=== PATIENT | male | born 1940 | race Caucasian/White ===

== ENCOUNTER 2018-04-11 10:52 | Day surgery (SDC) | payer MEDICARE, OTHER ==
--- NOTE | 2018-04-08 11:32 | HP ---
DATE OF SURGERY: 04/11/2018 ADMISSION DIAGNOSIS: Cyst of the right neck. ANTICIPATED PROCEDURE: Excision and packing. HISTORY OF PRESENT ILLNESS: The patient has a cyst in the right neck requiring excision probably will require packing. PAST MEDICAL HISTORY: ALLERGIES: SULFA, MORPHINE, IVP DYE. MEDICATIONS: See list. PAST SURGICAL HISTORY: Medtronic heart device, heart stent, double hernia, cholecystectomy. SOCIAL HISTORY: Negative. FAMILY HISTORY: Negative. REVIEW OF SYSTEMS: Negative. PHYSICAL EXAMINATION: VITAL SIGNS: Normal. CHEST: Clear. COR: Regular. NECK: Lesion right neck. IMPRESSION: Infected cyst. PLAN: Excision.
[~2018-04-11 10:52] MED LIST: Lactated Ringers 1,000 ML IV ONE; Sodium Chloride 0.9% 1000 ML 1,000 ML IV SCH; Sodium Chloride 0.9% 1000 ML 1,000 ML ONE; XYLOCAINE 1% HCL 20 ML MDV ONE
[2018-04-11] MEDS ORDERED: VERSED 5 MG/5 ML IV ONE (10:53)
[2018-04-11] MEDS ORDERED: DEMEROL 50 MG IV ONE (10:53)
--- NOTE | 2018-04-11 14:24 | OP ---
SURGERY DATE/TIME: 04/11/2018 1250 PREOPERATIVE DIAGNOSIS: Cyst right base of neck. POSTOPERATIVE DIAGNOSIS: A 1.5 cm cyst. PROCEDURE: Excision and closure. SURGEON: Zhang Arvizu M.D. ANESTHESIA: Local IV sedation. COMPLICATIONS: None. CONDITION: Stable. INDICATION: A patient requiring excision of a cyst. DESCRIPTION OF PROCEDURE: He was taken to surgery. Routine prep and drape. 1% lidocaine. Elliptical excision. It was fairly deep. It was below the platysma. It was totally excised. It was closed with 3-0 Vicryl and 4-0 Vicryl and Steri-Strips. Findings discussed with the family in the waiting room.
[2018-04-11 15:47] VITALS: BP 122/73; PULSE 69; O2SAT 96
== END 2018-04-11 15:50 | disposition home or self-care (01) ==
LOC: SDC 10:52
PROVIDERS: ATTEND Surgery
DX: L72.3 Sebaceous cyst (principal); L98.9 Disorder of the skin and subcutaneous tissue, unspecified
CPT/HCPCS: J2175; J2250

== ENCOUNTER 2020-06-23 08:57 | Day surgery (SDC) | payer MEDICARE, OTHER ==
[~2020-06-23 08:57] MED LIST changes: +DIPRIVAN 200 MG/20 ML IV ONE; +Ketamine HCl 50 MG/ML ONE; -Lactated Ringers 1,000 ML IV ONE; -Sodium Chloride 0.9% 1000 ML 1,000 ML IV SCH; -Sodium Chloride 0.9% 1000 ML 1,000 ML ONE; -XYLOCAINE 1% HCL 20 ML MDV ONE
[2020-06-23] MEDS ORDERED: BUPIVACAINE 0.5% VIAL IJ ONE (08:58)
[2020-06-23] MEDS ORDERED: Depo-Medrol 40 MG/ML IM ONE (08:58)
--- NOTE | 2020-06-23 12:07 | XRAY ---
Indication: Bilateral L4-S1 MBB. Intraoperative fluoroscopy provided for 12 seconds. Single digital spot image submitted for interpretation demonstrates posterior needle tips projecting over the expected left and right L4-S1 nerve roots. Correlate with intraoperative findings/report.
--- NOTE | 2020-06-23 12:40 | XRAY ---
12 seconds fluoroscopy time in surgery for bilateral L4-S1 MBB.
[2020-06-23] MEDS ORDERED: Lactated Ringers 1,000 ML IV ONE (13:44)
== END 2020-06-23 10:47 | disposition home or self-care (01) ==
LOC: SDC-PAIN 08:57
PROVIDERS: ATTEND Psychiatry & Neurology Pain Medicine
DX: M47.816 Spondylosis without myelopathy or radiculopathy, lumbar region (principal); I10 Essential (primary) hypertension; E11.9 Type 2 diabetes mellitus without complications; I25.10 Atherosclerotic heart disease of native coronary artery without angina pectoris; G47.30 Sleep apnea, unspecified; Z86.73 Personal history of transient ischemic attack (TIA), and cerebral infarction without residual deficits; Z79.899 Other long term (current) drug therapy
CPT/HCPCS: 72020; 77002; 82962; J1030; J2704

== ENCOUNTER 2020-07-11 09:25 | Emergency (ER) | payer MEDICARE, OTHER ==
[2020-07-11 10:23] LABS: Absolute Neutrophil Ct (ANC) 4.02 (1.4-6.9); Basophil (Absolute #) 0 (0-0.4); Eosinophil % 0.5 % (0.00-5.0); Eosinophil (Absolute #) 0.03 (0-0.5); Hematocrit 37.6 % (42-50); Hemoglobin 12.5 gm/dl (12.5-18.0); Lymphocyte (Absolute #) 0.81 (1.0-4.6); Lymphocytes % 14.8 % (24.0-44.0); Mean Cell Volume 96.9 fl (78-100); Mean Corpuscular Hemoglobin 32.2 pg (26-32); Mean Corpuscular Hgb Concent. 33.2 g/dl (32-36); Mean Platelet Volume 9.6 fl (7.5-11.0); Monocyte (Absolute #) 0.61 (0.0-1.3); Monocytes % 11.2 % (0.0-12.0); Neutrophil % 73.5 % (36.0-66.0); Platelet Count 83 K/mm3 (150-450); Red Blood Count 3.88 M/mm3 (4.1-5.6); Red Cell Distribution Width 13.2 % (11.5-14.0); White Blood Count 5.5 K/mm3 (4.0-10.5)
[2020-07-11 10:28] LABS: ALBUMIN 4.2 g/dL (3.5-5.0); ALKALINE PHOSPHATASE 65 U/L (38-126); ANION GAP 12.2 MEQ/L (5-15); BLOOD UREA NITROGEN 15 mg/dL (9-20); CHLORIDE 101 mmol/L (98-107); Calcium 8.9 mg/dL (8.4-10.2); Carbon Dioxide 23 mmol/L (22-30); Creatinine 1 0.94 mg/dL (0.66-1.25); EST GLOMERULAR FILTRATION RATE > 60.0 ML/MIN; Glucose 171 mg/dL (74-106); Potassium 4.6 mmol/L (3.5-5.1); SGOT/AST 24 U/L (17-59); SGPT/ALT 10 U/L (0-50); SODIUM 131 mmol/L (137-145); Total Protein 7.3 g/dL (6.3-8.2)
--- NOTE | 2020-07-11 10:42 | ERPHSYRPT ---
- History of Present Illness Time Seen by Provider: 07/11/20 09:48 Source: patient, family Exam Limitations: no limitations Patient Subjective Stated Complaint: congestion, cough Triage Nursing Assessment: pt to ED c/o cough and fever x 2 days. reports temp max 100.1 this am and had taken tylenol at 0800, temp now 98.5 orally. reports some intermittent productive cough x last couple days. lungs clear and equal bilaterally, heart sounds clear. pt A&Ox4. skin pink warm and dry. to ED with WC and ambulates with cane. Physician History: 80 years old male with history of hypertension, hyperlipidemia, coronary artery disease status post stenting, diabetes mellitus presented in the ER with chief complaint of sinus/nasal congestion with gradually worsening productive cough of clear to yellow sputum for the last 2 to 3 days. This morning he had a low- grade fever 100.1 which improved after taking Tylenol prior to arrival. Denies any chest pain palpitations or shortness of breath. Denies any known sick contact with COVID-19. Timing/Duration: day(s) (3), gradual onset, worse Cough Quality/Degree: moderate, productive cough, sputum Possible Cause: occasional episodes Modifying Factors: Improves With: coughing Associated Symptoms: fever, chills, chest pain/soreness, cough, muscle aches, nasal congestion, nasal drainage, sinus infection, sore throat, No shortness of breath Allergies/Adverse Reactions: Sulfa (Sulfonamide Antibiotics) Allergy (Severe, Verified 07/11/20 09:40) Iodinated Contrast Media [Iodinated Contrast Media - IV Dye] Allergy (Mild, Javier ified 07/11/20 09:40) morphine Allergy (Mild, Verified 07/11/20 09:40) ofloxacin Allergy (Mild, Verified 07/11/20 09:40) Home Medications: Alprazolam 0.5 mg [xanAX 0.5 MG] 0.5 mg PO BID 06/27/13 [History] Amlodipine Besylate 5 mg PO HS 06/27/13 [History] B2/Vits A,C,E/Lut/Zeaxanth/Min [Icaps Tablet] 1 each PO BID 06/27/13 [History] Buspirone HCl [Buspar] 15 mg PO BID 06/27/13 [History] Clopidogrel Bisulfate 75 mg [PLAVIX 75 MG Tablet] 75 mg PO DAILY 06/27/13 [History] Cyanocobalamin/Folic Acid [Vitamin W07-[id number] Acid Tablet] 1 each PO DAILY [History] Glipizide 5 mg [Glucotrol 5 MG] 5 mg PO BID 06/27/13 [History] Metformin HCl 500 mg [Glucophage 500 MG] 500 mg PO BID 06/27/13 [History] lisinopriL [Zestril] 2.5 mg PO DAILY 06/27/13 [History] Aspirin 81 mg PO DAILY 04/03/18 [History] Carvedilol [Coreg] 3.125 mg PO BID 04/03/18 [History] Fesoterodine Fumarate [Toviaz] 8 mg PO DAILY 04/03/18 [History] Gabapentin 300 mg PO BID 04/03/18 [History] Isosorbide Mononitrate [Isosorbide Mononitrate ER] 60 mg PO DAILY 04/03/18 [Hi story] Melatonin 5 mg PO HS 04/03/18 [History] Tamsulosin HCl 0.4 mg [Flomax 0.4 MG] 0.4 mg PO DAILY 04/03/18 [History] Hx Tetanus, Diphtheria Vaccination/Date Given: Yes Hx Influenza Vaccination/Date Given: Yes Hx Pneumococcal Vaccination/Date Given: Yes Immunizations Up to Date: Yes Travel Risk - International Travel Have you traveled outside of the country in past 3 weeks: No - Coronavirus Screening Are you exhibiting any of the following symptoms?: Yes Symptoms: Fever, Cough: New Onset Close contact with a COVID-19 positive Pt in past 14-21 Days: No - Review of Systems Constitutional: Fever, Chills, Fatigue Eyes: No Symptoms Ears, Nose, & Throat: Nose Congestion, Sinus Drainage, Throat Pain Respiratory: Cough, Dyspnea Cardiac: No Symptoms Abdominal/Gastrointestinal: No Symptoms Genitourinary Symptoms: No Symptoms Musculoskeletal: No Symptoms Skin: No Symptoms Neurological: No Symptoms Psychological: No Symptoms Endocrine: No Symptoms Hematologic/Lymphatic: No Symptoms Immunological/Allergic: No Symptoms - Past Medical History Pertinent Past Medical History: Yes Neurological History: Peripheral Neuropathy, Stroke ENT History: No Pertinent History Cardiac History: High Cholesterol, Hypertension Respiratory History: No Pertinent History Endocrine Medical History: Diabetes Type II, Liver Disease Musculoskeletal History: Arthritis GI Medical History: No Pertinent History History: No Pertinent History Psycho-Social History: Anxiety Male Reproductive Disorders: Prostate Problems Other Medical History: pt states he has a "medtronic device in his chest to see if he needs a pacemaker." - Past Surgical History Past Surgical History: Yes Neuro Surgical History: No Pertinent History Cardiac: Angioplasty, Cardiac Catheterization, Cardiac Stent Respiratory: No Pertinent History Gastrointestinal: Cholecystectomy, Hernia Repair Genitourinary: No Pertinent History Musculoskeletal: No Pertinent History Male Surgical History: No Pertinent History Other Surgical History: pt states he had 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 one stent and double hernia - Social History Smoking Status: Never smoker Exposure to second hand smoke: No Alcohol Use: None Drug Use: none Patient Lives Alone: Yes Significant Family History: heart disease, diabetes, hypertension - Nursing Vital Signs Nursing Vital Signs: Initial Vital Signs Temperature 98.5 F 07/11/20 09:28 Pulse Rate 88 07/11/20 09:28 Respiratory Rate 18 07/11/20 09:28 Blood Pressure 131/85 07/11/20 09:28 O2 Sat by Pulse Oximetry 96 07/11/20 09:28 Pain Scale Pain Intensity 0 - Physical Exam General Appearance: no apparent distress, alert Eye Exam: eyes nml inspection Ears, Nose, Throat Exam: pharyngeal erythema Neck Exam: normal inspection, supple, full range of motion Respiratory Exam: normal breath sounds, lungs clear Cardiovascular Exam: regular rate/rhythm, normal heart sounds Gastrointestinal/Abdomen Exam: soft, normal bowel sounds Back Exam: normal inspection, normal range of motion Extremity Exam: normal inspection, normal range of motion Neurologic Exam: alert, oriented x 3, cooperative Skin Exam: normal color SpO2 Interpretation: normal SpO2: 95 Ordered Tests: Active Orders 24 hr Category Date Time Status CHEST 1 VIEW (PORTABLE) Stat Exams 07/11/20 10:13 Taken BLOOD CULTURE Stat Lab 07/11/20 10:45 Received CBC W DIFF Stat Lab 07/11/20 10:05 Completed CMP Stat Lab 07/11/20 10:05 Completed Lactic Acid Stat Lab 07/11/20 10:13 Completed TROPONIN Q3H Lab 07/11/20 10:15 Completed TROPONIN Q3H Lab 07/11/20 13:15 Ordered TROPONIN Q3H Lab 07/11/20 16:15 Ordered TROPONIN Q3H Lab 07/11/20 19:15 Ordered TROPONIN Q3H Lab 07/11/20 22:15 Ordered Lab/Rad Data: Laboratory Result Diagrams 07/11/20 10:05 07/11/20 10:05 Laboratory Results 07/11/20 07/11/20 07/11/20 Range/Units 10:15 10:13 10:05 WBC (4.0-10.5) K/mm3 RBC (4.1-5.6) M/mm3 Hgb (12.5-18.0) gm/dl Hct (42-50) % MCV (78-100) fl MCH (26-32) pg MCHC (32-36) g/dl RDW (11.5-14.0) % Plt Count (150-450) K/mm3 MPV (7.5-11.0) fl Gran % (36.0-66.0) % Eos # (Auto) (0-0.5) Absolute Lymphs (auto) (1.0-4.6) Absolute Monos (auto) (0.0-1.3) Lymphocytes % (24.0-44.0) % Monocytes % (0.0-12.0) % Eosinophils % (0.00-5.0) % Basophils % (0.0-0.4) % Absolute Granulocytes (1.4-6.9) Basophils # (0-0.4) Sodium 131 L (137-145) mmol/L Potassium 4.6 (3.5-5.1) mmol/L Chloride 101 (98-107) mmol/L Carbon Dioxide 23 (22-30) mmol/L Anion Gap 12.2 (5-15) MEQ/L BUN 15 (9-20) mg/dL Creatinine 0.94 (0.66-1.25) mg/dL Estimated GFR > 60.0 ML/MIN Glucose 171 H (74-106) mg/dL Lactic Acid 1.2 (0.4-2.0) Calcium 8.9 (8.4-10.2) mg/dL Total Bilirubin 0.90 (0.2-1.3) mg/dL AST 24 (17-59) U/L ALT 10 (0-50) U/L Alkaline Phosphatase 65 (38-126) U/L Troponin I 0.016 (0.000-0.034) ng/mL Serum Total Protein 7.3 (6.3-8.2) g/dL Albumin 4.2 (3.5-5.0) g/dL 07/11/ Range/Units 10:05 WBC 5.5 (4.0-10.5) K/mm3 RBC 3.88 L (4.1-5.6) M/mm3 Hgb 12.5 (12.5-18.0) gm/dl Hct 37.6 L (42-50) % MCV 96.9 (78-100) fl MCH 32.2 H (26-32) pg MCHC 33.2 (32-36) g/dl RDW 13.2 (11.5-14.0) % Plt Count 83 L (150-450) K/mm3 MPV 9.6 (7.5-11.0) fl Gran % 73.5 H (36.0-66.0) % Eos # (Auto) 0.03 (0-0.5) Absolute Lymphs (auto) 0.81 L (1.0-4.6) Absolute Monos (auto) 0.61 (0.0-1.3) Lymphocytes % 14.8 L (24.0-44.0) % Monocytes % 11.2 (0.0-12.0) % Eosinophils % 0.5 (0.00-5.0) % Basophils % 0.0 (0.0-0.4) % Absolute Granulocytes 4.02 (1.4-6.9) Basophils # 0 (0-0.4) Sodium (137-145) mmol/L Potassium (3.5-5.1) mmol/L Chloride (98-107) mmol/L Carbon Dioxide (22-30) mmol/L Anion Gap (5-15) MEQ/L BUN (9-20) mg/dL Creatinine (0.66-1.25) mg/dL Estimated GFR ML/MIN Glucose (74-106) mg/dL Lactic Acid (0.4-2.0) Calcium (8.4-10.2) mg/dL Total Bilirubin (0.2-1.3) mg/dL AST (17-59) U/L ALT (0-50) U/L Alkaline Phosphatase (38-126) U/L Troponin I (0.000-0.034) ng/mL Serum Total Protein (6.3-8.2) g/dL Albumin (3.5-5.0) g/dL - Progress Progress: re-examined Air Movement: good Progress Note: 07/11/20 11:20 [id number] Blood Culture(s) Obtained: No Antibiotics given: Yes Counseled pt/family regarding: lab results, diagnosis, need for follow-up, rad results - Departure Departure Disposition: Home Clinical Impression: Bronchitis Condition: Stable Critical Care Time: No Referrals: LAURENT MEDRANO MD [Primary Care Provider] - Follow Up with PCP/3 days Instructions: Cough, Adult (DC) Additional Instructions: Use Tylenol as needed for fever. Follow-up with primary care physician for reevaluation in 2 to 3 days. Return to ER for any worsening cough fever/shortness of breath etc. shoes contact/droplet precautions until your COVID-19 testing is back. Prescriptions: Azithromycin 250 mg [Zithromax 250 MG TABLET] 250 mg PO ZPACK #6 tablet
[2020-07-11 11:03] VITALS: BP 95/43; PULSE 68
[2020-07-11 11:09] VITALS: O2SAT 95
[2020-07-11 17:09] LABS: Slide Review 1 YES
--- NOTE | 2020-07-11 19:17 | XRAY ---
Indication: Congestion. Pneumonia. Comparison: None Portable apical lordotic chest clear. Heart and mediastinal structures within normal limits. Bony thorax intact with degenerative changes and minimal scoliosis. Left neck surgical clips and a electronic device overlies the left chest. Impression: Nonacute chest with chronic features.
== END 2020-07-11 11:47 | disposition home or self-care (01) ==
LOC: ED 09:25
DX: J40 Bronchitis, not specified as acute or chronic (principal); R05 Cough; I10 Essential (primary) hypertension; E78.00 Pure hypercholesterolemia, unspecified; I25.10 Atherosclerotic heart disease of native coronary artery without angina pectoris; E11.9 Type 2 diabetes mellitus without complications; R50.9 Fever, unspecified; R07.89 Other chest pain; R09.81 Nasal congestion; Z79.899 Other long term (current) drug therapy
CPT/HCPCS: 36000; 36415; 71045; 80053; 83605; 84484; 85025; 87040; 99284; U0003

== ENCOUNTER 2020-08-04 13:36 | Day surgery (SDC) | payer MEDICARE, OTHER ==
[2020-08-04] MEDS ORDERED: Xylocaine 1% Vial 30 ML PF IJ ONE (13:37)
[2020-08-04] MEDS ORDERED: Decadron 4 MG INJ IV ONE (13:37)
[2020-08-04] MEDS ORDERED: Sodium Chloride 0.9(Preservative Free) 10 ML IJ ONE (13:37)
[2020-08-04] MEDS ORDERED: Lactated Ringers 1,000 ML IV ONE (15:45)
--- NOTE | 2020-08-04 16:49 | XRAY ---
1 minute and 11 seconds for cervical KATH.
--- NOTE | 2020-08-04 16:57 | XRAY ---
Indication: Cervical KATH. Intraoperative fluoroscopy was provided for 1 minute 11 seconds. 2 digital spot images submitted for interpretation demonstrate midline posterior needle tip projecting just posterior to the cervical thoracic junction. Small amount of contrast injected for needle tip placement. Correlate with intraoperative findings/report.
== END 2020-08-04 15:57 | disposition home or self-care (01) ==
LOC: SDC-PAIN 13:36
PROVIDERS: ATTEND Psychiatry & Neurology Pain Medicine
DX: M54.12 Radiculopathy, cervical region (principal); E11.9 Type 2 diabetes mellitus without complications; I10 Essential (primary) hypertension; G47.30 Sleep apnea, unspecified; F41.8 Other specified anxiety disorders; I25.10 Atherosclerotic heart disease of native coronary artery without angina pectoris; Z79.899 Other long term (current) drug therapy
CPT/HCPCS: 62321; 72040; 77003; 82947; 82962; J1100; J2001; Q9966

== ENCOUNTER 2020-11-24 07:42 | Day surgery (SDC) | payer MEDICARE, OTHER ==
[2020-11-24] MEDS ORDERED: Depo-Medrol 40 MG/ML IM ONE (07:43)
[2020-11-24] MEDS ORDERED: BUPIVACAINE 0.5% VIAL IJ ONE (07:43)
[2020-11-24] MEDS ORDERED: Ketamine HCl 50 MG/ML ONE (09:37)
[2020-11-24] MEDS ORDERED: DIPRIVAN 200 MG/20 ML IV ONE (09:37)
--- NOTE | 2020-11-24 11:34 | XRAY ---
Indication: Bilateral SI joint injection. Intraoperative fluoroscopy provided for 20 seconds. 4 digital spot images submitted for interpretation demonstrates posterior needle tip projecting over the inferior left and right SI joint. Correlate with intraoperative findings/report.
--- NOTE | 2020-11-24 11:47 | XRAY ---
20 seconds fluoroscopy time in surgery for injections of bilateral SI joints.
[2020-11-24] MEDS ORDERED: Lactated Ringers 1,000 ML IV ONE (16:08)
== END 2020-11-24 10:10 | disposition home or self-care (01) ==
LOC: SDC-PAIN 07:42
PROVIDERS: ATTEND Psychiatry & Neurology Pain Medicine
DX: M46.1 Sacroiliitis, not elsewhere classified (principal); I10 Essential (primary) hypertension; I25.10 Atherosclerotic heart disease of native coronary artery without angina pectoris; G47.30 Sleep apnea, unspecified; I63.9 Cerebral infarction, unspecified; E11.9 Type 2 diabetes mellitus without complications; F41.9 Anxiety disorder, unspecified; Z79.899 Other long term (current) drug therapy
CPT/HCPCS: 27096; 72202; 77002; 82947; G0260; J1030; J2704

== ENCOUNTER 2021-03-02 08:28 | Day surgery (SDC) | payer MEDICARE, OTHER ==
[2021-03-02] MEDS ORDERED: Depo-Medrol 40 MG/ML IM ONE (08:29)
[2021-03-02] MEDS ORDERED: BUPIVACAINE 0.5% VIAL IJ ONE (08:29)
[2021-03-02] MEDS ORDERED: DIPRIVAN 200 MG/20 ML IV ONE (09:39)
--- NOTE | 2021-03-02 10:44 | XRAY ---
Indication: Bilateral SI joint injection. Intraoperative fluoroscopy provided for 15 seconds. 4 digital spot images submitted for interpretation demonstrates posterior needle tip projecting over the inferior left and right SI joints. Correlate with intraoperative findings/report.
--- NOTE | 2021-03-02 11:55 | XRAY ---
15 seconds of fluoroscopy was used in surgery for bilateral SI joint injections.
[2021-03-02] MEDS ORDERED: Lactated Ringers 1,000 ML IV ONE (16:00)
== END 2021-03-02 10:06 | disposition home or self-care (01) ==
LOC: SDC-PAIN 08:28
PROVIDERS: ATTEND Psychiatry & Neurology Pain Medicine
DX: M46.1 Sacroiliitis, not elsewhere classified (principal); F41.9 Anxiety disorder, unspecified; F32.9 Major depressive disorder, single episode, unspecified; I10 Essential (primary) hypertension; I25.10 Atherosclerotic heart disease of native coronary artery without angina pectoris; G47.30 Sleep apnea, unspecified; E11.9 Type 2 diabetes mellitus without complications; Z79.01 Long term (current) use of anticoagulants; Z79.899 Other long term (current) drug therapy
CPT/HCPCS: 27096; 72202; 77002; 82947; G0260; 99100; J1030; J2704

== ENCOUNTER 2021-03-29 17:01 | Observation (INO) | payer MEDICARE, OTHER ==
--- NOTE | 2021-03-29 17:21 | ERPHSYRPT ---
- History of Present Illness Source: patient, family Exam Limitations: no limitations Hx Tetanus, Diphtheria Vaccination/Date Given: Yes Hx Influenza Vaccination/Date Given: Yes Hx Pneumococcal Vaccination/Date Given: Yes - History of Present Illness Time Seen by Provider: 03/29/21 17:20 Physician History: Patient is a 80-year-old male who presents with a chief complaint of a cough. Of note, the patient lives alone and was accompanied by his son-in-law in the emergency department. The son-in-law provided most of the details pertaining to the HPI due to the patient's difficulty with hearing. He reportedly had a increasing cough is been productive in which she is calling a yellow-tinged sputum with some blood streaking over the past few days to a week. He is also had some confusion and generalized weakness where he is having trouble walking. The patient did endorse falling at home but cannot tell me the context of the fall. He does take Plavix. It appears he is also on gabapentin. There is no reported recorded fever but the son-in-law reports that the patient complained of a an objective fever in addition to chills. The son-in-law notes that the patient's thermostat at home was kept at 78 F. There is no report of vomiting, diarrhea and the patient complains of some mild left shoulder pain. The son reports he did not show to a family gathering or an event and when they went to check on him he appeared to be confused. It appears the patient have taken twice the amount of medication is supposed to, specifically his pain medicines, specifically gabapentin. Not appear to be confused at this time. (REBEL KRAUS) Allergies/Adverse Reactions: Sulfa (Sulfonamide Antibiotics) Allergy (Severe, Verified 03/29/21 17:28) Iodinated Contrast Media [Iodinated Contrast Media - IV Dye] Allergy (Mild, Verified 03/29/21 17:28) morphine Allergy (Mild, Verified 03/29/21 17:28) ofloxacin Allergy (Mild, Verified 03/29/21 17:28) Home Medications: ALPRAZolam 0.5 MG [xanAX 0.5 MG] 0.5 mg PO BID 06/27/13 [History] Amlodipine Besylate 5 mg PO HS 06/27/13 [History] B2/Vits A,C,E/Lut/Zeaxanth/Min [Icaps Tablet] 1 each PO BID 06/27/13 [History] Buspirone HCl [Buspar] 15 mg PO BID 06/27/13 [History] Clopidogrel Bisulfate 75 mg [PLAVIX 75 MG Tablet] 75 mg PO DAILY 06/27/13 [History] Cyanocobalamin/Folic Acid [Vitamin S30-Bcogo Acid Tablet] 1 each PO DAILY 06/27/13 [History] Glipizide 5 mg [Glucotrol 5 MG] 5 mg PO BID 06/27/13 [History] Metformin HCl 500 mg [Glucophage 500 MG] 500 mg PO BID 06/27/13 [History] lisinopriL [Zestril] 2.5 mg PO DAILY 06/27/13 [History] Aspirin 81 mg PO DAILY 04/03/18 [History] Carvedilol [Coreg] 3.125 mg PO BID 04/03/18 [History] Fesoterodine Fumarate [Toviaz] 8 mg PO DAILY 04/03/18 [History] Gabapentin 300 mg PO BID 04/03/18 [History] Isosorbide Mononitrate [Isosorbide Mononitrate ER] 60 mg PO DAILY 04/03/18 [History] Melatonin 5 mg PO HS 04/03/18 [History] Tamsulosin HCl 0.4 mg [Flomax 0.4 MG] 0.4 mg PO DAILY 04/03/18 [History] - Review of Systems Constitutional: Fever, Chills Ears, Nose, & Throat: No Symptoms Respiratory: Cough, No Dyspnea on Exertion (KEMP), No Stridor, No Wheezing Cardiac: No Chest Pain, No Edema, No Palpitations Abdominal/Gastrointestinal: No Abdominal Pain, No Nausea, No Vomiting Musculoskeletal: Fall, Other (left shoulder pain) Neurological: Other (Confusion), No Headache, No Speech Changes All Other Systems: Reviewed and Negative - Past Medical History Pertinent Past Medical History: Yes Neurological History: Stroke ENT History: No Pertinent History Cardiac History: Coronary Artery Disease Respiratory History: Sleep Apnea, Other Endocrine Medical History: Diabetes Type II Musculoskeletal History: Degenerative Disk Disease, Osteoarthritis GI Medical History: No Pertinent History History: No Pertinent History Psycho-Social History: Anxiety Male Reproductive Disorders: Prostate Problems Other Medical History: CVA AFFECTING RIGHT SIDE 2010 YEARS AGO BUT REPORTS RECOVERED. HX OF COVID FIRST OF YEAR. IS NOW FULLY VACCINATED. HX OF SPINAL STENOSIS CERVICAL REGION BUT NOT SURGERY CANDIDATE. HAS RADICULOPATHY BOTH UE. CHRONIC RIGHT HIP PAIN - WAS SEEN BY ORTHO AND TOLD DID NOT NEED A REPLACEMENT BUT HAD INJECTION GREATER TROCHANTERIC BURSA. 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 one stent and double hernia - Social History Smoking Status: Never smoker Exposure to second hand smoke: No Alcohol Use: None Drug Use: none Patient Lives Alone: Yes Significant Family History: heart disease, diabetes, hypertension - Physical Exam General Appearance: no apparent distress, alert Eye Exam: PERRL/EOMI, photophobia, No EOM palsy/anisocoria Ears, Nose, Throat Exam: TMs normal, moist mucous membranes Neck Exam: normal inspection, non-tender, supple Respiratory Exam: normal breath sounds, lungs clear, airway intact, diminished breath sounds, No respiratory distress, No crackles/rales, No rhonchi, No wheezing Cardiovascular Exam: regular rate/rhythm, normal heart sounds, normal peripheral pulses, No murmur, No friction rub, No gallop, No capillary refill <2 sec Gastrointestinal/Abdomen Exam: soft, No tenderness, No distention, No mass Rectal Exam: deferred Back Exam: normal inspection, other (No flank ecchymosis or actual midline spine tenderness or crepitus despite his complaint of back pain.) Extremity Exam: normal inspection, other (The patient had pain with knee extension bilaterally but there is no deformity, cellulitis or erythema or crepitus. Dorsi flexion plantar flexion 4+ bilaterallyHip flexion was at 3 bilaterally, hallux extension 4+ bilaterally) Neurologic Exam: alert, oriented x 3, cooperative, other (Decreased sensation to gross touch of the lower extremities, there is no ankle clonus.) Skin Exam: normal color, warm, dry, No rash, No petechiae SpO2 Interpretation: normal O2 Delivery: Room Air - Nursing Vital Signs Nursing Vital Signs: Initial Vital Signs Temperature 97.8 F 03/29/21 17:06 Pulse Rate 83 03/29/21 17:06 Respiratory Rate 28 H 03/29/21 17:06 Blood Pressure 176/88 03/29/21 17:06 O2 Sat by Pulse Oximetry 93 L 03/29/21 17:06 Pain Scale Pain Intensity 0 - Course Nursing assessment & vital signs reviewed: Yes EKG Interpreted by Me: RATE, Left Bundle Branch Block (Prolonged W[place] interval. Negative for STEMI. Left axis deviation.) - Radiology Exams Chest X-ray Interpretation: Reviewed by me, Teleradiologist Report, Negative, Other (Poorly defined interstitial disease in the left perihilar region ? atypical pneumonia) - CT Exams Head CT Interpretation: Negative (No acute intracranial abnormality. Extensive right mastoid air cells) Ordered Tests: Active Orders 24 hr Category Date Time Status User Acceptance Tester STAT Care 03/29/21 17:29 Active EKG-ER Only STAT Care 03/29/21 17:28 Active IV Insertion STAT Care 03/29/21 17:28 Active CHEST 2 VIEWS (PA AND LAT) Stat Exams 03/29/21 17:28 Taken CHEST WITH CONTRAST [CT] Stat Exams 03/30/21 00:15 Taken HEAD WITHOUT CONTRAST [CT] Stat Exams 03/29/21 17:30 Taken BLOOD CULTURE Stat Lab 03/29/21 19:29 Received CBC W DIFF Stat Lab 03/29/21 18:15 Completed CMP Stat Lab 03/29/21 18:15 Completed CULTURE,URINE Stat Lab 03/29/21 17:52 Received D-DIMER QUANTITATIVE Stat Lab 03/29/21 19:18 Completed NT PRO BNP Stat Lab 03/29/21 18:15 Completed PROTIME WITH INR Stat Lab 03/29/21 20:20 Completed PTT Stat Lab 03/29/21 20:20 Completed TROPONIN Q3H Lab 03/30/21 03:12 Completed TROPONIN Q3H Lab 03/30/21 06:00 Ordered TROPONIN Q3H Lab 03/30/21 09:00 Ordered TROPONIN Q3H Lab 03/30/21 12:00 Ordered TROPONIN Stat Lab 03/29/21 18:15 Completed UA W/RFX UR CULTURE Stat Lab 03/29/21 17:49 Completed VENOUS BLOOD GAS Stat Lab 03/29/21 18:20 Completed Transfer Order Routine Transfer 03/30/21 Ordered Medication Summary Discontinued Medications Generic Name Dose Route Start Last Admin Trade Name Freq PRN Reason Stop Dose Admin Aspirin 324 mg 03/29/21 20:06 03/29/21 21:59 Baby Aspirin 81 Mg Chew PO 03/29/21 20:07 324 mg STAT ONE Administration Diphenhydramine HCl 50 mg 03/29/21 20:15 03/30/21 01:00 Benadryl 50 Mg/Ml IV 03/29/21 20:16 50 mg STAT ONE Administration Diphenhydramine HCl Confirm 03/30/21 00:52 Benadryl 50 Mg/Ml Administered 03/30/21 00:53 Dose 50 mg .ROUTE .STK-MED ONE Enoxaparin Sodium 100 mg 03/29/21 20:17 03/29/21 22:00 Enoxaparin Sodium 1 mg/kg (100 mg) 03/29/21 20:18 100 mg SQ Administration STAT ONE Enoxaparin Sodium Confirm 03/29/21 21:48 Enoxaparin Sodium Administered 03/29/21 21:49 Dose 120 mg SQ .STK-MED ONE Furosemide 20 mg 03/30/21 03:16 Lasix 20 Mg/2 Ml IV 03/30/21 03:17 ONCE STA Furosemide Confirm 03/30/21 03:30 Lasix 40 Mg/4 Ml Administered 03/30/21 03:31 Dose 40 mg .ROUTE .STK-MED ONE Furosemide Confirm 03/30/21 03:50 Lasix 40 Mg/4 Ml Administered 03/30/21 03:51 Dose 40 mg .ROUTE .STK-MED ONE Furosemide 40 mg 03/30/21 03:54 Lasix 40 Mg/4 Ml IV 03/30/21 03:55 STAT ONE Ceftriaxone Sodium/Dextrose 1 g in 50 mls @ 100 mls/hr 03/29/21 19:16 03/29/21 19:39 Rocephin 1 Gm-D5w 50 Ml Bag IV 03/29/21 19:45 100 mls/hr STAT STA 100 mls/hr Administration Azithromycin 500 mg in 250 mls @ 250 mls/hr 03/29/21 19:17 03/29/21 19:39 Zithromax 500 Mg/ 250 Ml Nacl Premix IV 03/29/21 20:16 250 mls/hr STAT ONE Administration Azithromycin Confirm 03/29/21 19:34 Zithromax 500 Mg/ 250 Ml Nacl Premix Administered 03/29/21 19:35 Dose 500 mg in 250 mls @ ud IV .STK-MED ONE Ceftriaxone Sodium/Dextrose Confirm 03/29/21 19:34 Rocephin 1 Gm-D5w 50 Ml Bag Administered 03/29/21 19:35 Dose 1 g in 50 mls @ ud IV .STK-MED ONE Methylprednisolone Sodium Succinate 40 mg 03/29/21 20:15 03/29/21 22:01 Solu-Medrol 40 Mg IV 03/29/21 20:16 40 mg STAT ONE Administration Methylprednisolone Sodium Succinate Confirm 03/29/21 21:46 Solu-Medrol Administered 03/29/21 21:47 Dose 125 mg .ROUTE .STK-MED ONE Methylprednisolone Sodium Succinate 40 mg 03/29/21 22:31 03/30/21 01:00 Solu-Medrol 40 Mg IV 03/29/21 22:32 40 mg STAT ONE Administration Methylprednisolone Sodium Succinate Confirm 03/30/21 00:56 Solu-Medrol 40 Mg Administered 03/30/21 00:57 Dose 40 mg .ROUTE .STK-MED ONE Sterile Water Confirm 03/29/21 21:46 Sterile H2o 10 Ml Administered 03/29/21 21:47 Dose 10 ml IJ .STK-MED ONE Lab/Rad Data: Laboratory Result Diagrams 03/29/21 18:15 03/29/21 18:15 Laboratory Results 03/30/21 03/30/21 03/29/21 Range/Units 03:12 01:50 20:20 WBC (4.0-10.5) K/mm3 RBC (4.1-5.6) M/mm3 Hgb (12.5-18.0) gm/dl Hct (42-50) % MCV (78-100) fl MCH (26-32) pg MCHC (32-36) g/dl RDW (11.5-14.0) % Plt Count (150-450) K/mm3 MPV (7.5-11.0) fl Gran % (36.0-66.0) % Eos # (Auto) (0-0.5) Absolute Lymphs (auto) (1.0-4.6) Absolute Monos (auto) (0.0-1.3) Lymphocytes % (24.0-44.0) % Monocytes % (0.0-12.0) % Eosinophils % (0.00-5.0) % Basophils % (0.0-0.4) % Absolute Granulocytes (1.4-6.9) Basophils # (0-0.4) PT 22.3 H (9.4-12.5) SECONDS INR 1.89 (0.8-3.0) APTT 36.1 (25.1-36.5) SECONDS D-Dimer (215-500) ng/mL pO2/FiO2 Ratio % VBG pH (7.32-7.42) VBG pCO2 at Pat Temp (42-55) mm/Hg VBG pO2 at Pat Temp (25-40) mm/Hg VBG HCO3 (22-28) meq/L VBG O2 Sat (Jay) (95-100) VBG Base Excess (-2.0-2.0) VBG Hemoglobin VBG Carboxyhemoglobin (0.0-6.9) % T HGB POC Potassium (3.5-5.1) Sodium (137-145) mmol/L Potassium (3.5-5.1) mmol/L Chloride (98-107) mmol/L Carbon Dioxide (22-30) mmol/L Anion Gap (5-15) MEQ/L BUN (9-20) mg/dL Creatinine (0.66-1.25) mg/dL Estimated GFR ML/MIN Glucose (74-106) mg/dL Calcium (8.4-10.2) mg/dL Total Bilirubin (0.2-1.3) mg/dL AST (17-59) U/L ALT (0-50) U/L Alkaline Phosphatase (38-126) U/L Troponin I 0.054 H* (0.000-0.034) ng/mL NT-Pro-B Natriuret Pep (0-1800) pg/mL Serum Total Protein (6.3-8.2) g/dL Albumin (3.5-5.0) g/dL Urine Color (YELLOW) Urine Appearance (CLEAR) Urine pH (5-6) Ur Specific Weston (1.005-1.025) Urine Protein (Negative) Urine Ketones (NEGATIVE) Urine Blood (0-5) Chris/ul Urine Nitrite (NEGATIVE) Urine Bilirubin (NEGATIVE) Urine Urobilinogen (0-1) mg/dL Ur Leukocyte Esterase (NEGATIVE) Urine WBC (Auto) (0-5) /HPF Urine RBC (Auto) (0-2) /HPF U Hyaline Cast (Auto) (0-2) /LPF U Epithel Cells (Auto) (FEW) /HPF Urine Bacteria (Auto) (NEGATIVE) /HPF Urine Culture Reflexed (NO) Urine Glucose (NEGATIVE) mg/dL SARS-CoV-2 (PCR) NEGATIVE (NEGATIVE) 03/29/21 03/29/21 03/29/21 Range/Units 19:18 18:20 18:15 WBC (4.0-10.5) K/mm3 RBC (4.1-5.6) M/mm3 Hgb (12.5-18.0) gm/dl Hct (42-50) % MCV (78-100) fl MCH (26-32) pg MCHC (32-36) g/dl RDW (11.5-14.0) % Plt Count (150-450) K/mm3 MPV (7.5-11.0) fl Gran % (36.0-66.0) % Eos # (Auto) (0-0.5) Absolute Lymphs (auto) (1.0-4.6) Absolute Monos (auto) (0.0-1.3) Lymphocytes % (24.0-44.0) % Monocytes % (0.0-12.0) % Eosinophils % (0.00-5.0) % Basophils % (0.0-0.4) % Absolute Granulocytes (1.4-6.9) Basophils # (0-0.4) PT (9.4-12.5) SECONDS INR (0.8-3.0) APTT (25.1-36.5) SECONDS D-Dimer 1055 H* (215-500) ng/mL pO2/FiO2 Ratio 21.0 % VBG pH 7.43 H (7.32-7.42) VBG pCO2 at Pat Temp 38 L (42-55) mm/Hg VBG pO2 at Pat Temp 36 (25-40) mm/Hg VBG HCO3 25.2 (22-28) meq/L VBG O2 Sat (Jay) 69.2 L (95-100) VBG Base Excess 1.0 (-2.0-2.0) VBG Hemoglobin 11.7 VBG Carboxyhemoglobin 4.4 (0.0-6.9) % T HGB POC Potassium 4.1 (3.5-5.1) Sodium 130 L (137-145) mmol/L Potassium 4.1 (3.5-5.1) mmol/L Chloride 93 L (98-107) mmol/L Carbon Dioxide 26 (22-30) mmol/L Anion Gap 15.3 H (5-15) MEQ/L BUN 16 (9-20) mg/dL Creatinine 1.18 (0.66-1.25) mg/dL Estimated GFR > 60.0 ML/MIN Glucose 97 (74-106) mg/dL Calcium 8.8 (8.4-10.2) mg/dL Total Bilirubin 1.30 (0.2-1.3) mg/dL AST 31 (17-59) U/L ALT 11 (0-50) U/L Alkaline Phosphatase 67 (38-126) U/L Troponin I 0.057 H* (0.000-0.034) ng/mL NT-Pro-B Natriuret Pep 5010 H (0-1800) pg/mL Serum Total Protein 7.5 (6.3-8.2) g/dL Albumin 4.2 (3.5-5.0) g/dL Urine Color (YELLOW) Urine Appearance (CLEAR) Urine pH (5-6) Ur Specific Weston (1.005-1.025) Urine Protein (Negative) Urine Ketones (NEGATIVE) Urine Blood (0-5) Chris/ul Urine Nitrite (NEGATIVE) Urine Bilirubin (NEGATIVE) Urine Urobilinogen (0-1) mg/dL Ur Leukocyte Esterase (NEGATIVE) Urine WBC (Auto) (0-5) /HPF Urine RBC (Auto) (0-2) /HPF U Hyaline Cast (Auto) (0-2) /LPF U Epithel Cells (Auto) (FEW) /HPF Urine Bacteria (Auto) (NEGATIVE) /HPF Urine Culture Reflexed (NO) Urine Glucose (NEGATIVE) mg/dL SARS-CoV-2 (PCR) (NEGATIVE) 03/29/21 03/29/21 Range/Units 18:15 17:49 WBC 8.7 (4.0-10.5) K/mm3 RBC 3.49 L (4.1-5.6) M/mm3 Hgb 11.0 L (12.5-18.0) gm/dl Hct 33.7 L (42-50) % MCV 96.6 (78-100) fl MCH 31.5 (26-32) pg MCHC 32.6 (32-36) g/dl RDW 14.2 H (11.5-14.0) % Plt Count 168 (150-450) K/mm3 MPV 9.1 (7.5-11.0) fl Gran % 65.8 (36.0-66.0) % Eos # (Auto) 0.01 (0-0.5) Absolute Lymphs (auto) 1.53 (1.0-4.6) Absolute Monos (auto) 1.42 H (0.0-1.3) Lymphocytes % 17.6 L (24.0-44.0) % Monocytes % 16.4 H (0.0-12.0) % Eosinophils % 0.1 (0.00-5.0) % Basophils % 0.1 (0.0-0.4) % Absolute Granulocytes 5.71 (1.4-6.9) Basophils # 0.01 (0-0.4) PT (9.4-12.5) SECONDS INR (0.8-3.0) APTT (25.1-36.5) SECONDS D-Dimer (215-500) ng/mL pO2/FiO2 Ratio % VBG pH (7.32-7.42) VBG pCO2 at Pat Temp (42-55) mm/Hg VBG pO2 at Pat Temp (25-40) mm/Hg VBG HCO3 (22-28) meq/L VBG O2 Sat (Jay) (95-100) VBG Base Excess (-2.0-2.0) VBG Hemoglobin VBG Carboxyhemoglobin (0.0-6.9) % T HGB POC Potassium (3.5-5.1) Sodium (137-145) mmol/L Potassium (3.5-5.1) mmol/L Chloride (98-107) mmol/L Carbon Dioxide (22-30) mmol/L Anion Gap (5-15) MEQ/L BUN (9-20) mg/dL Creatinine (0.66-1.25) mg/dL Estimated GFR ML/MIN Glucose (74-106) mg/dL Calcium (8.4-10.2) mg/dL Total Bilirubin (0.2-1.3) mg/dL AST (17-59) U/L ALT (0-50) U/L Alkaline Phosphatase (38-126) U/L Troponin I (0.000-0.034) ng/mL NT-Pro-B Natriuret Pep (0-1800) pg/mL Serum Total Protein (6.3-8.2) g/dL Albumin (3.5-5.0) g/dL Urine Color BERNARD (YELLOW) Urine Appearance CLOUDY (CLEAR) Urine pH 5.0 (5-6) Ur Specific Weston 1.014 (1.005-1.025) Urine Protein 100 (Negative) Urine Ketones NEGATIVE (NEGATIVE) Urine Blood NEGATIVE (0-5) Chris/ul Urine Nitrite NEGATIVE (NEGATIVE) Urine Bilirubin NEGATIVE (NEGATIVE) Urine Urobilinogen NEGATIVE (0-1) mg/dL Ur Leukocyte Esterase NEGATIVE (NEGATIVE) Urine WBC (Auto) 0-2 (0-5) /HPF Urine RBC (Auto) 0-2 (0-2) /HPF U Hyaline Cast (Auto) 0-2 (0-2) /LPF U Epithel Cells (Auto) NONE (FEW) /HPF Urine Bacteria (Auto) NONE SEEN (NEGATIVE) /HPF Urine Culture Reflexed NO (NO) Urine Glucose NEGATIVE (NEGATIVE) mg/dL SARS-CoV-2 (PCR) (NEGATIVE) - Progress Progress: unchanged Discussed with : Bailey Counseled pt/family regarding: lab results, diagnosis, rad results - Progress Progress Note: 03/29/21 18:44 The patient serum potassium is 3.0. I have ordered oral potassium replacement given in addition to a gram of magnesium given hypokalemia is usually associated with hypomagnesemia. May be etiology of some of his weakness but not all of it. Obtain labs to include CBC in addition to the BMP already ordered and UA. CT ab domen pelvis with contrast will be ordered to eval for evidence of osteolytic lesion of the spine, screen for discitis, RP hematoma, pyelonephritis, obstructing kidney stone, AAA, or herniated disc/degenerative changes in his lumbar spine. The patient was given for pain given that he takes this at home. He is to be relatively comfortable when remaining still. 03/29/21 20:31 I discussed the case with Dr. Medrano, PCP. He agreed to admit and is aware there is a CTA of the chest pending to rule out PE. Working diagnosis at this time is community-acquired pneumonia and/or PE. Patient also appears to have evidence of an NSTEMI but his EKG showed no evidence of acute myocardial ischemia or injury pattern and this is likely reflective of a type II event. The patient's BNP is also elevated. In the context of a PE if present, this would represent a submassive PE. I went ahead and empirically treated the patient with Lovenox for anticoagulation. Unfortunately, there will be a delay in obtaining a CTA of his chest given the patient has a contrast allergy. He has been pretreated with Benadryl and Solu-Medrol while he awaits his CT. In the meantime, the patient was already empirically treated for community- acquired pneumonia with ceftriaxone and azithromycin present. His head CT s howed no evidence of intracranial hemorrhage or mass or any evidence of acute CVA. I believe his confusion and reported altered mental status by the son-in-law could be from him being overmedicated, specifically from his gabapentin. Patient care has been transitioned to Dr. Rhodes pending CTA results and admission to the hospital. (REBEL KRAUS) Patient endorsed to Dr. Rhodes at approximately 7:[address] Rhodes advised to follow-up on pending CT a chest. CT scan was ordered however patient has a allergy to iodine. Patient required premedication. This process was performed in our ED. CT results pending. However patient treated for possible pneumonia. Patient anticoagulated for possible PE. Troponin elevated at 0.05 however this is stable. Patient has no chest pain. BNP elevated. Patient received [address] Kraus spoke to Dr. Medrano who accepted patient to his service. Plan of care discussed with patient. He agrees to admission at [facility] for further evaluation and treatment. Patient voices no other complaints concerns at this time. 03/30/21 04:01 (LALITHA RHODES) - Departure Departure Disposition: Observation Critical Care Time: Yes Critical Care Time(excluding separately billable procedures): Critical 30-74 mins - Departure Clinical Impression: Confusion, Community acquired pneumonia, Elevated troponin, Pneumonia, Elevated brain natriuretic peptide (BNP) level Condition: Stable Referrals: LAURENT MEDRANO MD [Primary Care Provider] -
[2021-03-29 18:27] LABS: Appearance CLOUDY (CLEAR); Bilirubin NEGATIVE (NEGATIVE); Blood NEGATIVE Ery/ul (0-5); Glucose NEGATIVE (NEGATIVE); Hyaline Casts 0-2 /LPF (0-2); Ketones NEGATIVE (NEGATIVE); Leukocyte Esterase NEGATIVE (NEGATIVE); Nitrite NEGATIVE (NEGATIVE); Protein,Urine Dip 100 (Negative); RBC 0-2 /HPF (0-2); Specific Gravity 1.014 (1.005-1.025); Urobilinogen NEGATIVE mg/dL (0-1); WBC 0-2 /HPF (0-5)
[2021-03-29 18:30] LABS: Bacteria NONE SEEN /HPF (NEGATIVE)
[2021-03-29 18:37] LABS: Absolute Neutrophil Ct (ANC) 5.71 (1.4-6.9); BASOPHIL % 0.1 % (0.0-0.4); Basophil (Absolute #) 0.01 (0-0.4); Eosinophil % 0.1 % (0.00-5.0); Eosinophil (Absolute #) 0.01 (0-0.5); Hematocrit 33.7 % (42-50); Lymphocyte (Absolute #) 1.53 (1.0-4.6); Lymphocytes % 17.6 % (24.0-44.0); Mean Cell Volume 96.6 fl (78-100); Mean Corpuscular Hemoglobin 31.5 pg (26-32); Mean Corpuscular Hgb Concent. 32.6 g/dl (32-36); Mean Platelet Volume 9.1 fl (7.5-11.0); Monocyte (Absolute #) 1.42 (0.0-1.3); Monocytes % 16.4 % (0.0-12.0); Neutrophil % 65.8 % (36.0-66.0); Platelet Count 168 K/mm3 (150-450); Red Blood Count 3.49 M/mm3 (4.1-5.6); Red Cell Distribution Width 14.2 % (11.5-14.0); White Blood Count 8.7 K/mm3 (4.0-10.5)
[2021-03-29 18:38] LABS: VBG CARBOXYHEMOGLOBIN 4.4 % T HGB (0.0-6.9); VBG HCO3- 25.2 meq/L (22-28); VBG HEMOGLOBIN 11.7; VBG O2 SATURATION 69.2 (95-100); VBG POTASSIUM 4.1 (3.5-5.1); VBG pH 7.43 (7.32-7.42)
[2021-03-29 19:04] LABS: ALBUMIN 4.2 g/dL (3.5-5.0); ALKALINE PHOSPHATASE 67 U/L (38-126); ANION GAP 15.3 MEQ/L (5-15); BLOOD UREA NITROGEN 16 mg/dL (9-20); CHLORIDE 93 mmol/L (98-107); Calcium 8.8 mg/dL (8.4-10.2); Carbon Dioxide 26 mmol/L (22-30); Creatinine 1 1.18 mg/dL (0.66-1.25); EST GLOMERULAR FILTRATION RATE > 60.0 ML/MIN; Glucose 97 mg/dL (74-106); NT PRO BNP 5010 pg/mL (0-1800); Potassium 4.1 mmol/L (3.5-5.1); SGOT/AST 31 U/L (17-59); SGPT/ALT 11 U/L (0-50); SODIUM 130 mmol/L (137-145); Total Protein 7.5 g/dL (6.3-8.2)
[2021-03-29] MEDS ORDERED: ROCEPHIN 1 Gm-D5w 50 ml Bag** 1 G/50 ML IVPB IV STA (19:16)
[2021-03-29] MEDS ORDERED: Zithromax 500 MG/ 250 ML NaCl Premix 500 MG/250 ML IVPB IV ONE ×2 (19:17→19:34)
[2021-03-29 19:29] LABS: TROPONIN 0.057 ng/mL (0.000-0.034)
[2021-03-29] MEDS ORDERED: ROCEPHIN 1 Gm-D5w 50 ml Bag** 1 G/50 ML IVPB IV ONE (19:34)
[2021-03-29] MEDS ORDERED: BABY ASPIRIN 81 MG CHEW PO ONE (20:06)
[2021-03-29] MEDS ORDERED: BENADRYL 50 MG/ML IV ONE (20:15)
[2021-03-29] MEDS ORDERED: solu-MEDROL 40 MG IV ONE ×2 (20:15→22:31)
[2021-03-29] MEDS ORDERED: ENOXAPARIN SODIUM SQ ONE ×2 (20:17→21:48)
[2021-03-29 20:27] LABS: INR 1.89 (0.8-3.0); PROTIME 22.3 SECONDS (9.4-12.5)
[2021-03-29 20:29] LABS: PTT 36.1 SECONDS (25.1-36.5)
[2021-03-29] MEDS ORDERED: Sterile H2O 10 ml IJ ONE (21:46)
[2021-03-29] MEDS ORDERED: solu-MEDROL ONE (21:46)
[2021-03-30] MEDS ORDERED: BENADRYL 50 MG/ML ONE (00:52)
[2021-03-30] MEDS ORDERED: solu-MEDROL 40 MG ONE (00:56)
[2021-03-30] MEDS ORDERED: Lasix 20 MG/2 ML IV STA (03:16)
[2021-03-30] MEDS ORDERED: Lasix 40 MG/4 ML ONE ×2 (03:30→03:50)
[2021-03-30] MEDS ORDERED: Lasix 40 MG/4 ML IV ONE (03:54)
[2021-03-30] MEDS ORDERED: TYLENOL 325 MG PO PRN ×2 (06:00)
[2021-03-30] MEDS ORDERED: MILK OF MAGNESIA 30 ML PO PRN ×2 (06:00)
[2021-03-30] MEDS ORDERED: Senokot-S Tablet PO PRN ×2 (06:00)
[2021-03-30] MEDS ORDERED: MAALOX ES 30 ML UNIT DOSE PO PRN ×2 (06:00)
--- NOTE | 2021-03-30 07:56 | PCM.HP ---
History of Present Illness - Chief Complaint Chief Complaint: c/o cough and confusion for few hours History of Present Illness: is a 80 year old male.who presents with a chief complaint of a cough. Of note, the patient lives alone He reportedly had a increasing cough is been productive in which she is calling a yellow-tinged sputum with some blood streaking over the past few days to a week. He is also had some confusion and generalized weakness where he is having trouble walking. The patient did endorse falling at home but cannot tell me the context of the fall. He does take Plavix. It appears he is also on gabapentin. There is no reported recorded fever but the son-in-law reports that the patient complained of a an objective fever in addition to chills. The son-in-law notes that the patient's thermostat at home was kept at 78 F. There is no report of vomiting, diarrhea and the patient complains of some mild left shoulder pain. The son reports he did not show to a family gathering or an event and when they went to check on him he appeared to be confused. It appears the patient have taken twice the amount of medication is supposed to, specifically his pain medicines, specifically gabapentin. Not appear to be confused at this time. - Review of Systems Constitutional: Weakness, No Fever, No Chills Eyes: No Symptoms Ears, Nose, & Throat: No Symptoms Respiratory: Cough, No Short Of Breath Cardiac: No Chest Pain, No Edema, No Syncope Abdominal/Gastrointestinal: No Abdominal Pain, No Nausea, No Vomiting, No Diarrhea Genitourinary Symptoms: No Dysuria Musculoskeletal: No Back Pain, No Neck Pain Skin: No Rash Neurological: Lethargy, No Dizziness, No Focal Weakness, No Sensory Changes Psychological: No Symptoms Endocrine: No Symptoms Hematologic/Lymphatic: No Symptoms Immunological/Allergic: No Symptoms Medications & Allergies Home Medications: Home Medication List ALPRAZolam 0.5 MG [xanAX 0.5 MG] 0.5 mg PO BID 06/27/13 [History Confirmed 07/11/20] Amlodipine Besylate 5 mg PO HS 06/27/13 [History Confirmed 07/11/20] B2/Vits A,C,E/Lut/Zeaxanth/Min [Icaps Tablet] 1 each PO BID 06/27/13 [History Confirmed 07/11/20] Buspirone HCl [Buspar] 15 mg PO BID 06/27/13 [History Confirmed 07/11/20] Clopidogrel Bisulfate 75 mg [PLAVIX 75 MG Tablet] 75 mg PO DAILY 06/27/13 [History Confirmed 07/11/20] Cyanocobalamin/Folic Acid [Vitamin J37-Mltxo Acid Tablet] 1 each PO DAILY 06/27/13 [History Confirmed 07/11/20] Glipizide 5 mg [Glucotrol 5 MG] 5 mg PO BID 06/27/13 [History Confirmed 07/11/20] Metformin HCl 500 mg [Glucophage 500 MG] 500 mg PO BID 06/27/13 [History Confirmed 07/11/20] lisinopriL [Zestril] 2.5 mg PO DAILY 06/27/13 [History Confirmed 07/11/20] Aspirin 81 mg PO DAILY 04/03/18 [History Confirmed 07/11/20] Carvedilol [Coreg] 3.125 mg PO BID 04/03/18 [History Confirmed 07/11/20] Fesoterodine Fumarate [Toviaz] 8 mg PO DAILY 04/03/18 [History Confirmed 07/11/20] Gabapentin 300 mg PO BID 04/03/18 [History Confirmed 07/11/20] Isosorbide Mononitrate [Isosorbide Mononitrate ER] 60 mg PO DAILY 04/03/18 [History Confirmed 07/11/20] Melatonin 5 mg PO HS 04/03/18 [History Confirmed 07/11/20] Tamsulosin HCl 0.4 mg [Flomax 0.4 MG] 0.4 mg PO DAILY 04/03/18 [History Confirmed 07/11/20] Azithromycin 250 mg [Zithromax 250 MG TABLET] 250 mg PO ZPACK #6 tablet 07/11/20 [Rx] Allergies/Adverse Reactions: Allergies Allergy/AdvReac Type Severity Reaction Status Date / Time Sulfa (Sulfonamide Allergy Severe Verified 03/30/21 06:31 Antibiotics) Iodinated Contrast Media Allergy Mild Verified 03/30/21 06:31 [Iodinated Contrast Media - IV Dye] morphine Allergy Mild Verified 03/30/21 06:31 ofloxacin Allergy Mild Verified 03/30/21 06:31 - Past Medical History Past Medical History: Yes Neurological History: Stroke ENT History: No Pertinent History Cardiac History: Coronary Artery Disease, High Cholesterol, Hypertension, Myocardial Infarction ([place]) Respiratory History: Sleep Apnea, Other Endocrine Medical History: Diabetes Type II Musculoskelatal History: Degenerative Disk Disease, Osteoarthritis GI Medical History: No Pertinent History History: No Pertinent History Pyscho-Social History: Anxiety Male Reproductive Disorders: Prostate Problems Comment: CVA AFFECTING RIGHT SIDE 2010 YEARS AGO BUT REPORTS RECOVERED. HX OF COVID FIRST OF YEAR. IS NOW FULLY VACCINATED. HX OF SPINAL STENOSIS CERVICAL REGION BUT NOT SURGERY CANDIDATE. HAS RADICULOPATHY BOTH UE. CHRONIC RIGHT HIP PAIN - WAS SEEN BY ORTHO AND TOLD DID NOT NEED A REPLACEMENT BUT HAD INJECTION GREATER TROCHANTERIC BURSA. 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 one stent and double hernia, cardiac cath x 5 - Social History Smoking Status: Never smoker Exposure to second hand smoke: No Alcohol: None Drug Use: none Significant Family History: heart disease, diabetes, hypertension - Physical Exam Vital Signs: Vital Signs - 24 hr Temp Pulse Resp BP Pulse Ox 03/30/21 06:00 97.5 F 80 20 138/71 94 L 03/30/21 05:00 61 19 108/40 94 L 03/30/21 04:00 65 20 97/45 94 L 03/30/21 03:00 70 22 125/50 94 L 03/30/21 02:15 78 28 H 93 L 03/30/21 01:00 79 24 147/77 94 L 03/30/21 00:00 81 22 125/60 91 L 03/29/21 23:00 84 20 127/59 90 L 03/29/21 22:00 87 24 127/59 90 L 03/29/21 21:00 90 23 168/101 92 L 03/29/21 19:56 82 22 141/67 97 03/29/21 17:06 97.8 F 83 28 H 176/88 95 General Appearance: mild distress, alert, lethargy Neurologic Exam: alert, oriented x 3, cooperative, No motor deficits Eye Exam: PERRL/EOMI, eyes nml inspection Ears, Nose, Throat Exam: normal ENT inspection, TMs normal, pharynx normal, moist mucous membranes Neck Exam: normal inspection, non-tender, supple, full range of motion Respiratory Exam: diminished breath sounds, No respiratory distress Cardiovascular Exam: regular rate/rhythm, normal heart sounds, normal peripheral pulses Gastrointestinal/Abdomen Exam: soft, normal bowel sounds, No tenderness, No mass Back Exam: normal inspection, normal range of motion, No CVA tenderness, No vertebral tenderness Extremity Exam: normal inspection, normal range of motion, pelvis stable Skin Exam: normal color, warm, dry, No rash Lymphatic Exam: No adenopathy Results - Labs Lab/Micro Results: Lab Results-Last 24 Hours 03/29/21 03/29/21 03/29/21 Range/Units 17:49 18:15 18:15 WBC 8.7 (4.0-10.5) K/mm3 RBC 3.49 L (4.1-5.6) M/mm3 Hgb 11.0 L (12.5-18.0) gm/dl Hct 33.7 L (42-50) % MCV 96.6 (78-100) fl MCH 31.5 (26-32) pg MCHC 32.6 (32-36) g/dl RDW 14.2 H (11.5-14.0) % Plt Count 168 (150-450) K/mm3 MPV 9.1 (7.5-11.0) fl Gran % 65.8 (36.0-66.0) % Eos # (Auto) 0.01 (0-0.5) Absolute Lymphs (auto) 1.53 (1.0-4.6) Absolute Monos (auto) 1.42 H (0.0-1.3) Lymphocytes % 17.6 L (24.0-44.0) % Monocytes % 16.4 H (0.0-12.0) % Eosinophils % 0.1 (0.00-5.0) % Basophils % 0.1 (0.0-0.4) % Absolute Granulocytes 5.71 (1.4-6.9) Basophils # 0.01 (0-0.4) PT (9.4-12.5) SECONDS INR (0.8-3.0) APTT (25.1-36.5) SECONDS D-Dimer (215-500) ng/mL pO2/FiO2 Ratio % VBG pH (7.32-7.42) VBG pCO2 at Pat Temp (42-55) mm/Hg VBG pO2 at Pat Temp (25-40) mm/Hg VBG HCO3 (22-28) meq/L VBG O2 Sat (Jay) (95-100) VBG Base Excess (-2.0-2.0) VBG Hemoglobin VBG Carboxyhemoglobin (0.0-6.9) % T HGB POC Potassium (3.5-5.1) Sodium 130 L (137-145) mmol/L Potassium 4.1 (3.5-5.1) mmol/L Chloride 93 L (98-107) mmol/L Carbon Dioxide 26 (22-30) mmol/L Anion Gap 15.3 H (5-15) MEQ/L BUN 16 (9-20) mg/dL Creatinine 1.18 (0.66-1.25) mg/dL Estimated GFR > 60.0 ML/MIN Glucose 97 (74-106) mg/dL Calcium 8.8 (8.4-10.2) mg/dL Total Bilirubin 1.30 (0.2-1.3) mg/dL AST 31 (17-59) U/L ALT 11 (0-50) U/L Alkaline Phosphatase 67 (38-126) U/L Troponin I 0.057 H* (0.000-0.034) ng/mL NT-Pro-B Natriuret Pep 5010 H (0-1800) pg/mL Serum Total Protein 7.5 (6.3-8.2) g/dL Albumin 4.2 (3.5-5.0) g/dL Urine Color BERNARD (YELLOW) Urine Appearance CLOUDY (CLEAR) Urine pH 5.0 (5-6) Ur Specific [place] 1.014 (1.005-1.025) Urine Protein 100 (Negative) Urine Ketones NEGATIVE (NEGATIVE) Urine Blood NEGATIVE (0-5) Chris/ul Urine Nitrite NEGATIVE (NEGATIVE) Urine Bilirubin NEGATIVE (NEGATIVE) Urine Urobilinogen NEGATIVE (0-1) mg/dL Ur Leukocyte Esterase NEGATIVE (NEGATIVE) Urine WBC (Auto) 0-2 (0-5) /HPF Urine RBC (Auto) 0-2 (0-2) /HPF U Hyaline Cast (Auto) 0-2 (0-2) /LPF U Epithel Cells (Auto) NONE (FEW) /HPF Urine Bacteria (Auto) NONE SEEN (NEGATIVE) /HPF Urine Culture Reflexed NO (NO) Urine Glucose NEGATIVE (NEGATIVE) mg/dL SARS-CoV-2 (PCR) (NEGATIVE) 03/29/21 03/29/21 03/29/21 Range/Units 18:20 19:18 20:20 WBC (4.0-10.5) K/mm3 RBC (4.1-5.6) M/mm3 Hgb (12.5-18.0) gm/dl Hct (42-50) % MCV (78-100) fl MCH (26-32) pg MCHC (32-36) g/dl RDW (11.5-14.0) % Plt Count (150-450) K/mm3 MPV (7.5-11.0) fl Gran % (36.0-66.0) % Eos # (Auto) (0-0.5) Absolute Lymphs (auto) (1.0-4.6) Absolute Monos (auto) (0.0-1.3) Lymphocytes % (24.0-44.0) % Monocytes % (0.0-12.0) % Eosinophils % (0.00-5.0) % Basophils % (0.0-0.4) % Absolute Granulocytes (1.4-6.9) Basophils # (0-0.4) PT 22.3 H (9.4-12.5) SECONDS INR 1.89 (0.8-3.0) APTT 36.1 (25.1-36.5) SECONDS D-Dimer 1055 H* (215-500) ng/mL pO2/FiO2 Ratio 21.0 % VBG pH 7.43 H (7.32-7.42) VBG pCO2 at Pat Temp 38 L (42-55) mm/Hg VBG pO2 at Pat Temp 36 (25-40) mm/Hg VBG HCO3 25.2 (22-28) meq/L VBG O2 Sat (Jay) 69.2 L (95-100) VBG Base Excess 1.0 (-2.0-2.0) VBG Hemoglobin 11.7 VBG Carboxyhemoglobin 4.4 (0.0-6.9) % T HGB POC Potassium 4.1 (3.5-5.1) Sodium (137-145) mmol/L Potassium (3.5-5.1) mmol/L Chloride (98-107) mmol/L Carbon Dioxide (22-30) mmol/L Anion Gap (5-15) MEQ/L BUN (9-20) mg/dL Creatinine (0.66-1.25) mg/dL Estimated GFR ML/MIN Glucose (74-106) mg/dL Calcium (8.4-10.2) mg/dL Total Bilirubin (0.2-1.3) mg/dL AST (17-59) U/L ALT (0-50) U/L Alkaline Phosphatase (38-126) U/L Troponin I (0.000-0.034) ng/mL NT-Pro-B Natriuret Pep (0-1800) pg/mL Serum Total Protein (6.3-8.2) g/dL Albumin (3.5-5.0) g/dL Urine Color (YELLOW) Urine Appearance (CLEAR) Urine pH (5-6) Ur Specific [place] (1.005-1.025) Urine Protein (Negative) Urine Ketones (NEGATIVE) Urine Blood (0-5) Chris/ul Urine Nitrite (NEGATIVE) Urine Bilirubin (NEGATIVE) Urine Urobilinogen (0-1) mg/dL Ur Leukocyte Esterase (NEGATIVE) Urine WBC (Auto) (0-5) /HPF Urine RBC (Auto) (0-2) /HPF U Hyaline Cast (Auto) (0-2) /LPF U Epithel Cells (Auto) (FEW) /HPF Urine Bacteria (Auto) (NEGATIVE) /HPF Urine Culture Reflexed (NO) Urine Glucose (NEGATIVE) mg/dL SARS-CoV-2 (PCR) (NEGATIVE) 03/30/21 03/30/21 03/30/21 Range/Units 01:50 03:12 05:47 WBC (4.0-10.5) K/mm3 RBC (4.1-5.6) M/mm3 Hgb (12.5-18.0) gm/dl Hct (42-50) % MCV (78-100) fl MCH (26-32) pg MCHC (32-36) g/dl RDW (11.5-14.0) % Plt Count (150-450) K/mm3 MPV (7.5-11.0) fl Gran % (36.0-66.0) % Eos # (Auto) (0-0.5) Absolute Lymphs (auto) (1.0-4.6) Absolute Monos (auto) (0.0-1.3) Lymphocytes % (24.0-44.0) % Monocytes % (0.0-12.0) % Eosinophils % (0.00-5.0) % Basophils % (0.0-0.4) % Absolute Granulocytes (1.4-6.9) Basophils # (0-0.4) PT (9.4-12.5) SECONDS INR (0.8-3.0) APTT (25.1-36.5) SECONDS D-Dimer (215-500) ng/mL pO2/FiO2 Ratio % VBG pH (7.32-7.42) VBG pCO2 at Pat Temp (42-55) mm/Hg VBG pO2 at Pat Temp (25-40) mm/Hg VBG HCO3 (22-28) meq/L VBG O2 Sat (Jay) (95-100) VBG Base Excess (-2.0-2.0) VBG Hemoglobin VBG Carboxyhemoglobin (0.0-6.9) % T HGB POC Potassium (3.5-5.1) Sodium (137-145) mmol/L Potassium (3.5-5.1) mmol/L Chloride (98-107) mmol/L Carbon Dioxide (22-30) mmol/L Anion Gap (5-15) MEQ/L BUN (9-20) mg/dL Creatinine (0.66-1.25) mg/dL Estimated GFR ML/MIN Glucose (74-106) mg/dL Calcium (8.4-10.2) mg/dL Total Bilirubin (0.2-1.3) mg/dL AST (17-59) U/L ALT (0-50) U/L Alkaline Phosphatase (38-126) U/L Troponin I 0.054 H* 0.053 H* (0.000-0.034) ng/mL NT-Pro-B Natriuret Pep (0-1800) pg/mL Serum Total Protein (6.3-8.2) g/dL Albumin (3.5-5.0) g/dL Urine Color (YELLOW) Urine Appearance (CLEAR) Urine pH (5-6) Ur Specific [place] (1.005-1.025) Urine Protein (Negative) Urine Ketones (NEGATIVE) Urine Blood (0-5) Chris/ul Urine Nitrite (NEGATIVE) Urine Bilirubin (NEGATIVE) Urine Urobilinogen (0-1) mg/dL Ur Leukocyte Esterase (NEGATIVE) Urine WBC (Auto) (0-5) /HPF Urine RBC (Auto) (0-2) /HPF U Hyaline Cast (Auto) (0-2) /LPF U Epithel Cells (Auto) (FEW) /HPF Urine Bacteria (Auto) (NEGATIVE) /HPF Urine Culture Reflexed (NO) Urine Glucose (NEGATIVE) mg/dL SARS-CoV-2 (PCR) NEGATIVE (NEGATIVE) - Radiology Impressions Radiology Exams & Impressions: Radiology Procedures Category Date Time Status CHEST 2 VIEWS (PA AND LAT) Stat Exams 03/29/21 17:28 Taken CHEST WITH CONTRAST [CT] Stat Exams 03/30/21 00:15 Taken HEAD WITHOUT CONTRAST [CT] Stat Exams 03/29/21 17:30 Taken - Other Procedures and Tests Respiratory Therapy 03/30/21 06:00 EKG Q8HX2,QAMX3,PRN Assessment/Plan (1) Community acquired pneumonia Current Visit: Yes Status: Acute Code(s): J18.9 - PNEUMONIA, UNSPECIFIED ORGANISM (2) Confusion Current Visit: Yes Status: Acute Code(s): R41.0 - DISORIENTATION, UNSPECIFIED (3) Elevated troponin Current Visit: Yes Status: Acute Code(s): R77.8 - OTHER SPECIFIED ABNORMALITIES OF PLASMA PROTEINS
--- NOTE | 2021-03-30 08:32 | XRAY ---
Exam: CT of the head without IV contrast from 03/29/2021. CTDI: 53.92 mGy Comparison: CT of the head without IV contrast 06/27/2013. Indication: 80-year-old male with altered mental status/memory loss; confusion and disorientation; history of recent fall; patient is on "blood thinners". Technique: Non-IV contrast axial images were obtained through the brain. Reconstructed coronal and sagittal images were created and reviewed. Findings: Both the ventricles and cortical sulci/cisterns are mildly prominent in a diffuse manner consistent with age-related volume loss/atrophy. This is similar to 06/27/2013. I believe there is a small cavum septum pellucidum between the frontal horns representing no change (normal variant). No focal mass effect or midline shift is seen. No acute intracranial bleed or abnormal extra-axial fluid collection is seen. Only minor chronic bilateral periventricular small vessel ischemic white matter changes are seen. A discrete infarct within a major cerebral or cerebellar artery distribution is not seen. Structures of the posterior fossa appear unremarkable. The calvarium of the skull appears intact. The visualized paranasal sinuses are essentially clear. I again note hazy opacification throughout the right mastoid air cells consistent with extensive chronic right mastoid sinus disease. There is also some soft tissue density within the right middle ear cavity which is unchanged suggesting chronic right middle ear disease. The left mastoid air cells are adequately aerated without effusion. The left middle ear cavity appears unremarkable. The internal auditory canals are symmetric bilaterally. Impression: 1. No acute intracranial bleed or other acute intracranial process is seen. Only some age-related changes are seen within the brain representing no significant change. 2. 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 Correlate clinically.
[2021-03-30 12:22] LABS: ALBUMIN 3.6 g/dL (3.5-5.0); BILIRUBIN,TOTAL 0.7 mg/dL (0.2-1.3); Calcium 8.1 mg/dL (8.4-10.2); Creatinine 1 1.24 mg/dL (0.66-1.25); EST GLOMERULAR FILTRATION RATE 59.8 ML/MIN; Potassium 4.4 mmol/L (3.5-5.1); Total Protein 6.6 g/dL (6.3-8.2)
[2021-03-30 12:24] LABS: Hematocrit 31.5 % (42-50); Hemoglobin 10.4 gm/dl (12.5-18.0); Mean Cell Volume 95.2 fl (78-100); Mean Corpuscular Hemoglobin 31.4 pg (26-32); Platelet Count 145 K/mm3 (150-450); Red Blood Count 3.31 M/mm3 (4.1-5.6); Red Cell Distribution Width 14.1 % (11.5-14.0); White Blood Count 5.9 K/mm3 (4.0-10.5)
[2021-03-30] MEDS ORDERED: Nitrostat 0.4 MG Tablet SL PRN (12:51)
[2021-03-30] MEDS ORDERED: MEDICATION INTERVENTION PO SCH ×3 (13:45)
[2021-03-30] MEDS ORDERED: NEURONTIN 300 MG PO SCH (14:00)
[2021-03-30] MEDS ORDERED: Ditropan 5 MG PO SCH (14:00)
[2021-03-30] MEDS: Imdur 60MG PO SCH (15:13)
[2021-03-30] MEDS: celeBREX 100 MG PO SCH (15:14)
[2021-03-30] MEDS: ELIQUIS 2.5 MG TABLET PO SCH (15:15)
[2021-03-30] MEDS: PLAVIX 75 MG Tablet PO SCH (15:16)
[2021-03-30] MEDS: Flomax 0.4 MG PO SCH (15:18)
[2021-03-30] MEDS: Ocuvite Tablet PO SCH ×2 (15:18→21:12)
[2021-03-30] MEDS: Ditropan XL 5 MG PO SCH (15:19)
[2021-03-30] MEDS: Coreg 3.125 MG PO SCH ×2 (15:20→21:12)
[2021-03-30] MEDS: Glucophage 500 MG PO SCH (17:03)
[2021-03-30] MEDS: Glucotrol 5 MG PO SCH (17:03)
[2021-03-30] MEDS: HUMULIN R SQ PRN ×2 (17:33→22:54)
[2021-03-30] MEDS ORDERED: ROCEPHIN 1 Gm-D5w 50 ml Bag** 1 G/50 ML IVPB IV SCH (19:00)
[2021-03-30] MEDS ORDERED: Zithromax 500 MG/ 250 ML NaCl Premix 500 MG/250 ML IVPB IV SCH (20:00)
--- NOTE | 2021-03-30 20:43 | XRAY ---
Exam: Two-view chest from 03/29/2021. Comparison: AP upright portable chest film from 07/11/2020. Indication: Fall, weakness. Findings: PA and lateral chest films were obtained. The patient's arms are down by his side. The heart size is normal. Moderate air space infiltrate is seen throughout the lower two thirds of the left lung. This is concerning for left lower lobe pneumonia. The left upper lobe and right lung remain clear. EKG leads are seen in place. No pneumothorax is seen. I believe there is minimal blunting of the left lateral costophrenic angle which could be due to pleural thickening/scarring or tiny amount of pleural fluid. There is mild convexity of the upper thoracic spine toward the left centered at T3-T4. Moderate diffuse thoracic spondylosis is seen. Impression: 1. Moderate air space infiltrate is seen throughout the lower two thirds of the left lung concerning for pneumonia, probably within the left lower lobe. 2. Minimal pleural thickening/scarring versus tiny effusion blunting the left lateral costophrenic angle. 3. No other acute cardiopulmonary disease is seen. 4. Skeletal findings, as discussed above..
--- NOTE | 2021-03-30 21:25 | XRAY ---
Exam: CT of the chest with IV contrast per PE protocol from 03/30/2021. Comparison: Two-view chest from 03/29/2021. Indication: Elevated d-dimer; abnormal blood gases; elevated serum troponin, cough productive of yellow sputum. I'm told the patient takes Plavix. Technique: Post-IV contrast axial images were obtained through the chest. A right Technique: Post-IV contrast axial images were obtained through the chest during automated injection of 100 cc of Isovue-370 contrast material using the PE protocol. Reconstructed coronal and sagittal images were created and reviewed. Findings: The pulmonary arteries enhance well revealing no filling defects to suggest clot/emboli. The thoracic aorta reveals some vascular calcification within the aortic arch and distal descending thoracic aorta. No aneurysm or aortic dissection is seen. The heart size is within normal limits without pericardial effusion. Three-vessel coronary artery vascular calcification is seen. The significant finding is is extensive airspace infiltrate throughout the left lower lobe with concomitant minimal posterior layering left pleural effusion. The findings are suggestive of pneumonia, perhaps due to aspiration. Correlate clinically. I note some scattered mildly prominent mediastinal lymph nodes which are probably reactive. No abnormal axillary lymphadenopathy is seen. The remainder of the lung henry appears clear. I see no suspicious soft tissue lung nodule. The upper abdomen reveals some hepatic steatosis. A single surgical clip is seen within the subhepatic space. The gallbladder is apparently surgically absent. The adrenal glands appear unremarkable. No other significant abnormality within the upper abdomen is seen. The skeleton reveals no acute fracture or aggressive bone lesion. Advanced degenerative disc disease is seen within the visualized lower cervical spine. I also note moderate thoracic spondylosis. No definite rib fracture is seen. Impression: 1. I see no evidence of pulmonary emboli. 2. Large left lower lobe airspace consolidation consistent with pneumonia, perhaps due to aspiration. Correlate clinically. There is also a minimal posterior layering left pleural effusion. 3. Three-vessel coronary artery calcification consistent with coronary artery disease. 4. Hepatic steatosis.
[2021-03-30] MEDS ORDERED: ZOCOR 20MG PO SCH (22:00)
[2021-03-30] MEDS ORDERED: NORVASC 5 MG PO SCH (22:00)
[2021-03-30] MEDS ORDERED: NON-FORMULARY ITEM (Atorvastatin Calcium [Atorvastatin Calcium] 20 MG) PO SCH (22:00)
[2021-03-30] MEDS ORDERED: NON-FORMULARY ITEM (B2/Vits A,C,E/Lut/Zeaxanth/Min [Icaps Tablet] 1 EACH) PO SCH (22:00)
[2021-03-31 06:14] LABS: Risk Ratio 3.4
[2021-03-31] MEDS: Glucophage 500 MG PO SCH (08:28)
[2021-03-31] MEDS: Glucotrol 5 MG PO SCH (08:28)
--- NOTE | 2021-03-31 08:32 | PCM.NOTE ---
Date and Time: 03/31/21830 Subjective Assessment: doing better - Review of Systems Constitutional: No Fever, No Chills Eyes: No Symptoms Ears, Nose, & Throat: No Symptoms Respiratory: No Cough, No Short Of Breath Cardiac: No Chest Pain, No Edema, No Syncope Abdominal/Gastrointestinal: No Abdominal Pain, No Nausea, No Vomiting, No Diarrhea Genitourinary Symptoms: No Dysuria Musculoskeletal: No Back Pain, No Neck Pain Skin: No Rash Neurological: No Dizziness, No Focal Weakness, No Sensory Changes Psychological: No Symptoms Endocrine: No Symptoms Hematologic/Lymphatic: No Symptoms Immunological/Allergic: No Symptoms Objective Exam General Appearance: no apparent distress, alert Neurologic Exam: alert, oriented x 3, cooperative, normal mood/affect, nml cerebellar function, sensation nml, No motor deficits Skin Exam: normal color, warm, dry Eye Exam: PERRL, EOMI, eyes nml inspection Ears, Nose, Throat Exam: normal ENT inspection, pharynx normal, moist mucous membranes Neck Exam: normal inspection, non-tender, supple, full range of motion Respiratory Exam: diminished breath sounds, crackles/rales, No respiratory distress Cardiovascular Exam: regular rate/rhythm, normal heart sounds Gastrointestinal/Abdomen Exam: soft, No tenderness, No mass Extremity Exam: normal inspection, normal range of motion Back Exam: normal inspection, normal range of motion, No CVA tenderness, No vertebral tenderness Male Genitalia Exam: deferred Rectal Exam: deferred OBJECTIVE DATA Vital Signs: Vital Signs - 24 hr Temp Pulse Resp BP Pulse Ox 03/31/21 07:42 97.7 F 62 23 147/66 98 03/31/21 04:00 98.1 F 68 21 118/57 96 03/31/21 00:00 97.9 F 53 L 20 119/57 97 03/30/21 23:06 91 L 03/30/21 20:00 97.9 F 81 18 147/66 90 L 03/30/21 16:00 98.1 F 75 16 143/70 93 L 03/30/21 15:42 95 03/30/21 12:00 97 03/30/21 11:56 97.7 F 72 20 127/61 97 Oxygen-Last 24 hours Oxygen Flowrate (L/min)-RT 2 Oxygen Flowrate (L/min)-RT 2 Pain Assessment - Last Documented Pain Intensity 0 Pain Scale Used 0-10 Pain Scale Intake and Output: Intake & Output 03/28/21 03/29/21 03/30/21 03/31/21 11:59 11:59 11:59 11:59 Intake Total 480 Output Total 450 Balance 30 Weight 100.5 kg Lab Results: Lab Results-Last 24 Hours 03/30/21 03/30/21 03/30/21 Range/Units 09:07 09:35 11:34 WBC (4.0-10.5) K/mm3 RBC (4.1-5.6) M/mm3 Hgb (12.5-18.0) gm/dl Hct (42-50) % MCV (78-100) fl MCH (26-32) pg MCHC (32-36) g/dl RDW (11.5-14.0) % Plt Count (150-450) K/mm3 MPV (7.5-11.0) fl Sodium (137-145) mmol/L Potassium (3.5-5.1) mmol/L Chloride (98-107) mmol/L Carbon Dioxide (22-30) mmol/L Anion Gap (5-15) MEQ/L BUN (9-20) mg/dL Creatinine (0.66-1.25) mg/dL Estimated GFR ML/MIN Glucose (74-106) mg/dL POC Glucometer 256 H 337 H (74 to 106) mg/dL Calcium (8.4-10.2) mg/dL Total Bilirubin (0.2-1.3) mg/dL AST (17-59) U/L ALT (0-50) U/L Alkaline Phosphatase (38-126) U/L Troponin I 0.036 H* (0.000-0.034) ng/mL Serum Total Protein (6.3-8.2) g/dL Albumin (3.5-5.0) g/dL Triglycerides (30-150) mg/dL Cholesterol (50-200) mg/dL LDL Cholesterol (30-100) mg/dL HDL Cholesterol (40-60) mg/dL Heart Disease Risk Ratio 03/30/21 03/30/21 03/30/21 Range/Units 12:05 12:05 12:05 WBC 5.9 (4.0-10.5) K/mm3 RBC 3.31 L (4.1-5.6) M/mm3 Hgb 10.4 L (12.5-18.0) gm/dl Hct 31.5 L (42-50) % MCV 95.2 (78-100) fl MCH 31.4 (26-32) pg MCHC 33.0 (32-36) g/dl RDW 14.1 H (11.5-14.0) % Plt Count 145 L (150-450) K/mm3 MPV 9.0 (7.5-11.0) fl Sodium 131 L (137-145) mmol/L Potassium 4.4 (3.5-5.1) mmol/L Chloride 95 L (98-107) mmol/L Carbon Dioxide 24 (22-30) mmol/L Anion Gap 17.0 H (5-15) MEQ/L BUN 24 H (9-20) mg/dL Creatinine 1.24 (0.66-1.25) mg/dL Estimated GFR 59.8 ML/MIN Glucose 385 H (74-106) mg/dL POC Glucometer (74 to 106) mg/dL Calcium 8.1 L (8.4-10.2) mg/dL Total Bilirubin 0.70 (0.2-1.3) mg/dL AST 26 (17-59) U/L ALT 12 (0-50) U/L Alkaline Phosphatase 63 (38-126) U/L Troponin I 0.024 (0.000-0.034) ng/mL Serum Total Protein 6.6 (6.3-8.2) g/dL Albumin 3.6 (3.5-5.0) g/dL Triglycerides (30-150) mg/dL Cholesterol (50-200) mg/dL LDL Cholesterol (30-100) mg/dL HDL Cholesterol (40-60) mg/dL Heart Disease Risk Ratio 03/30/21 03/30/21 03/30/21 Range/Units 16:31 16:38 16:50 WBC (4.0-10.5) K/mm3 RBC (4.1-5.6) M/mm3 Hgb (12.5-18.0) gm/dl Hct (42-50) % MCV (78-100) fl MCH (26-32) pg MCHC (32-36) g/dl RDW (11.5-14.0) % Plt Count (150-450) K/mm3 MPV (7.5-11.0) fl Sodium (137-145) mmol/L Potassium (3.5-5.1) mmol/L Chloride (98-107) mmol/L Carbon Dioxide (22-30) mmol/L Anion Gap (5-15) MEQ/L BUN (9-20) mg/dL Creatinine (0.66-1.25) mg/dL Estimated GFR ML/MIN Glucose 551 H* (74-106) mg/dL POC Glucometer TNP 484 H (74 to 106) mg/dL Calcium (8.4-10.2) mg/dL Total Bilirubin (0.2-1.3) mg/dL AST (17-59) U/L ALT (0-50) U/L Alkaline Phosphatase (38-126) U/L Troponin I (0.000-0.034) ng/mL Serum Total Protein (6.3-8.2) g/dL Albumin (3.5-5.0) g/dL Triglycerides (30-150) mg/dL Cholesterol (50-200) mg/dL LDL Cholesterol (30-100) mg/dL HDL Cholesterol (40-60) mg/dL Heart Disease Risk Ratio 03/30/21 03/30/21 03/30/21 Range/Units 21:00 22:00 22:10 WBC (4.0-10.5) K/mm3 RBC (4.1-5.6) M/mm3 Hgb (12.5-18.0) gm/dl Hct (42-50) % MCV (78-100) fl MCH (26-32) pg MCHC (32-36) g/dl RDW (11.5-14.0) % Plt Count (150-450) K/mm3 MPV (7.5-11.0) fl Sodium (137-145) mmol/L Potassium (3.5-5.1) mmol/L Chloride (98-107) mmol/L Carbon Dioxide (22-30) mmol/L Anion Gap (5-15) MEQ/L BUN (9-20) mg/dL Creatinine (0.66-1.25) mg/dL Estimated GFR ML/MIN Glucose 497 H (74-106) mg/dL POC Glucometer 512 H* 568 H* (74 to 106) mg/dL Calcium (8.4-10.2) mg/dL Total Bilirubin (0.2-1.3) mg/dL AST (17-59) U/L ALT (0-50) U/L Alkaline Phosphatase (38-126) U/L Troponin I (0.000-0.034) ng/mL Serum Total Protein (6.3-8.2) g/dL Albumin (3.5-5.0) g/dL Triglycerides (30-150) mg/dL Cholesterol (50-200) mg/dL LDL Cholesterol (30-100) mg/dL HDL Cholesterol (40-60) mg/dL Heart Disease Risk Ratio 03/31/21 03/31/21 Range/Units 05:37 07:14 WBC (4.0-10.5) K/mm3 RBC (4.1-5.6) M/mm3 Hgb (12.5-18.0) gm/dl Hct (42-50) % MCV (78-100) fl MCH (26-32) pg MCHC (32-36) g/dl RDW (11.5-14.0) % Plt Count (150-450) K/mm3 MPV (7.5-11.0) fl Sodium (137-145) mmol/L Potassium (3.5-5.1) mmol/L Chloride (98-107) mmol/L Carbon Dioxide (22-30) mmol/L Anion Gap (5-15) MEQ/L BUN (9-20) mg/dL Creatinine (0.66-1.25) mg/dL Estimated GFR ML/MIN Glucose (74-106) mg/dL POC Glucometer 237 H (74 to 106) mg/dL Calcium (8.4-10.2) mg/dL Total Bilirubin (0.2-1.3) mg/dL AST (17-59) U/L ALT (0-50) U/L Alkaline Phosphatase (38-126) U/L Troponin I (0.000-0.034) ng/mL Serum Total Protein (6.3-8.2) g/dL Albumin (3.5-5.0) g/dL Triglycerides 123 (30-150) mg/dL Cholesterol 102 (50-200) mg/dL LDL Cholesterol 63 (30-100) mg/dL HDL Cholesterol 30 L (40-60) mg/dL Heart Disease Risk Ratio 3.4 Radiology Exams: Radiology Procedures Category Date Time Status CHEST 2 VIEWS (PA AND LAT) Stat Exams 03/29/21 17:28 Completed CHEST WITH CONTRAST [CT] Stat Exams 03/30/21 00:15 Completed HEAD WITHOUT CONTRAST [CT] Stat Exams 03/29/21 17:30 Completed Assessment/Plan (1) Community acquired pneumonia Current Visit: Yes Status: Acute Qualifiers: Laterality: unspecified laterality Qualified Code(s): J18.9 - Pneumonia, unspecified organism Assessment & Plan: Chief Complaint Diagnosis Pneumonia, Elevated Troponin, Elevated BNP Allergies Allergy/AdvReac Type Severity Reaction Status Date / Time Sulfa (Sulfonamide Allergy Severe Verified 03/30/21 06:31 Antibiotics) Iodinated Contrast Media Allergy Mild Verified 03/30/21 06:31 [Iodinated Contrast Media - IV Dye] morphine Allergy Mild Verified 03/30/21 06:31 ofloxacin Allergy Mild Verified 03/30/21 06:31 Vital Signs (Last 24 hours) Temp Pulse Resp BP Pulse Ox 03/31/21 07:42 97.7 F 62 23 147/66 98 03/31/21 04:00 98.1 F 68 21 118/57 96 03/31/21 00:00 97.9 F 53 L 20 119/57 97 03/30/21 23:06 91 L 03/30/21 20:00 97.9 F 81 18 147/66 90 L 03/30/21 16:00 98.1 F 75 16 143/70 93 L 03/30/21 15:42 95 03/30/21 12:00 97 03/30/21 11:56 97.7 F 72 20 127/61 97 Home Medications Medication Instructions Recorded Confirmed Last Taken Type Apixaban [Eliquis] 5 mg PO DAILY 03/30/21 03/30/21 03/29/21 History Atorvastatin Calcium 20 mg PO HS 03/30/21 03/30/21 03/29/21 History Celecoxib 100 mg [celeBREX 100 100 mg PO DAILY 03/30/21 03/30/21 03/29/21 History MG] Folic Acid/Vit B Complex and C 5 mg PO DAILY 03/30/21 03/30/21 03/29/21 History [Folbee Plus Tablet] Nitroglycerin 0.4 mg Tablet 0.4 mg SL Q5MIN PRN MR X 3 PRN MDD 03/30/21 03/30/21 Unknown History [Nitrostat 0.4 MG Tablet] 3 Oxybutynin Chloride [Oxybutynin 10 mg PO DAILY 03/30/21 03/30/21 03/29/21 History Chloride ER] Current Medications Generic Name Dose Route Start Last Admin Trade Name Freq PRN Reason Stop Dose Admin Acetaminophen 650 mg 03/30/21 06:00 03/30/21 21:33 Tylenol 325 Mg PO 04/29/21 05:59 650 mg Q4H PRN PRN Administration PAIN AND/OR FEVER Al Hydrox/Mg Hydrox/Simethicone 30 ml 03/30/21 06:00 Maalox Es 30 Ml Unit Dose PO 04/29/21 05:59 Q4H PRN PRN INDIGESTION Amlodipine Besylate 5 mg 03/30/21 22:00 03/30/21 21:12 Norvasc 5 Mg PO 04/29/21 21:59 5 mg HS DAWSON Administration Apixaban 5 mg 03/30/21 14:00 03/30/21 15:15 Eliquis 2.5 Mg Tablet PO 04/29/21 13:59 5 mg DAILY DAWSON Administration Carvedilol 3.125 mg 03/30/21 14:00 03/30/21 21:12 Coreg 3.125 Mg PO 04/29/21 13:59 3.125 mg BID DAWSON Administration Celecoxib 100 mg 03/30/21 14:00 03/30/21 15:14 Celebrex 100 Mg PO 04/29/21 13:59 Not Given DAILY DAWSON Clopidogrel Bisulfate 75 mg 03/30/21 14:00 03/30/21 15:16 Plavix 75 Mg Tablet PO 04/29/21 13:59 75 mg DAILY DAWSON Administration Glipizide 5 mg 03/30/21 16:30 03/30/21 17:03 Glucotrol 5 Mg PO 04/29/21 16:29 5 mg BIDAC DAWSON Administration Azithromycin 500 mg in 250 mls @ 250 mls/hr 03/30/21 20:00 03/30/21 21:12 Zithromax 500 Mg/ 250 Ml Nacl Premix IV 04/29/21 19:59 250 mls/hr Q24H DAWSON Administration Ceftriaxone Sodium/Dextrose 1 g in 50 mls @ 100 mls/hr 03/30/21 19:00 1 18:44 Rocephin 1 Gm-D5w 50 Ml Bag IV 04/02/21 18:59 100 mls/hr Q24H DAWSON Administration Insulin Human Regular 0 unit 03/30/21 17:22 03/30/21 22:54 Humulin R SQ 04/29/21 17:21 12 unit UD PRN Administration HYPERGLYCEMIA Isosorbide Mononitrate 60 mg 03/30/21 14:00 03/30/21 15:13 Imdur 60mg PO 04/29/21 13:59 60 mg DAILY DAWSON Administration Magnesium Hydroxide 30 - 60 ml 03/30/21 06:00 Milk Of Magnesia 30 Ml PO 04/29/21 05:59 QDP PRN CONSTIPATION Metformin HCl 1,000 mg 03/30/21 17:00 03/30/21 17:03 Glucophage 500 Mg PO 04/29/21 16:59 1,000 mg BIDWMEALS DAWSON Administration Miscellaneous Information 1 each 03/30/21 13:45 Medication Intervention PO 04/29/21 13:44 .RN TO CHECK DAWSON Miscellaneous Information 1 each 03/30/21 13:45 Medication Intervention PO 04/29/21 13:44 .RN TO CHECK DAWSON Miscellaneous Information 1 each 03/30/21 13:45 Medication Intervention PO 04/29/21 13:44 .RN TO CHECK DAWSON Multivitamins/Minerals 1 tab 03/30/21 14:00 03/30/21 21:12 Ocuvite Tablet PO 04/29/21 13:59 1 tab BID DAWSON Administration Nitroglycerin 0.4 mg 03/30/21 12:51 Nitrostat 0.4 Mg Tablet SL 04/29/21 12:50 Q5MIN PRN MR X 3 PRN CHEST PAIN Oxybutynin Chloride 10 mg 03/30/21 14:00 03/30/21 15:19 Ditropan Xl 5 Mg PO 04/29/21 13:59 10 mg DAILY DAWSON Administration Senna/Docusate Sodium 2 udtab 03/30/21 06:00 Senokot-S Tablet PO 04/29/21 05:59 BID PRN PRN CONSTIPATION Simvastatin 20 mg 03/30/21 22:00 03/30/21 21:13 Zocor 20mg PO 04/29/21 21:59 20 mg HS DAWSON Administration Tamsulosin HCl 0.4 mg 03/30/21 14:00 03/30/21 15:18 Flomax 0.4 Mg PO 04/29/21 13:59 0.4 mg DAILY DAWSON Administration Discontinued Medications Generic Name Dose Route Start Last Admin Trade Name Freq PRN Reason Stop Dose Admin Aspirin 324 mg 03/29/21 20:06 03/29/21 21:59 Baby Aspirin 81 Mg Chew PO 03/29/21 20:07 324 mg STAT ONE Administration Diphenhydramine HCl 50 mg 03/29/21 20:15 03/30/21 01:00 Benadryl 50 Mg/Ml IV 03/29/21 20:16 50 mg STAT ONE Administration Diphenhydramine HCl Confirm 03/30/21 00:52 Benadryl 50 Mg/Ml Administered 03/30/21 00:53 Dose 50 mg .ROUTE .STK-MED ONE Enoxaparin Sodium 100 mg 03/29/21 20:17 03/29/21 22:00 Enoxaparin Sodium 1 mg/kg (100 mg) 03/29/21 20:18 100 mg SQ Administration STAT ONE Enoxaparin Sodium Confirm 03/29/21 21:48 Enoxaparin Sodium Administered 03/29/21 21:49 Dose 120 mg SQ .STK-MED ONE Furosemide 20 mg 03/30/21 03:16 03/30/21 05:15 Lasix 20 Mg/2 Ml IV 03/30/21 03:17 Not Given ONCE STA Furosemide Confirm 03/30/21 03:30 Lasix 40 Mg/4 Ml Administered 03/30/21 03:31 Dose 40 mg .ROUTE .STK-MED ONE Furosemide Confirm 03/30/21 03:50 Lasix 40 Mg/4 Ml Administered 03/30/21 03:51 Dose 40 mg .ROUTE .STK-MED ONE Furosemide 40 mg 03/30/21 03:54 03/30/21 04:25 Lasix 40 Mg/4 Ml IV 03/30/21 03:55 40 mg STAT ONE Administration Gabapentin 300 mg 03/30/21 14:00 Neurontin 300 Mg PO 04/29/21 13:59 BID DAWSON Ceftriaxone Sodium/Dextrose 1 g in 50 mls @ 100 mls/hr 03/29/21 19:16 03/29/21 19:39 Rocephin 1 Gm-D5w 50 Ml Bag IV 03/29/21 19:45 100 mls/hr STAT STA 100 mls/hr Administration Azithromycin 500 mg in 250 mls @ 250 mls/hr 03/29/21 19:17 03/29/21 19:39 Zithromax 500 Mg/ 250 Ml Nacl Premix IV 03/29/21 20:16 250 mls/hr STAT ONE Administration Azithromycin Confirm 03/29/21 19:34 Zithromax 500 Mg/ 250 Ml Nacl Premix Administered 03/29/21 19:35 Dose 500 mg in 250 mls @ ud IV .STK-MED ONE Ceftriaxone Sodium/Dextrose Confirm 03/29/21 19:34 Rocephin 1 Gm-D5w 50 Ml Bag Administered 03/29/21 19:35 Dose 1 g in 50 mls @ ud IV .STK-MED ONE Methylprednisolone Sodium Succinate 40 mg 03/29/21 20:15 03/29/21 22:01 Solu-Medrol 40 Mg IV 03/29/21 20:16 40 mg STAT ONE Administration Methylprednisolone Sodium Succinate Confirm 03/29/21 21:46 Solu-Medrol Administered 03/29/21 21:47 Dose 125 mg .ROUTE .STK-MED ONE Methylprednisolone Sodium Succinate 40 mg 03/29/21 22:31 03/30/21 01:00 Solu-Medrol 40 Mg IV 03/29/21 22:32 40 mg STAT ONE Administration Methylprednisolone Sodium Succinate Confirm 03/30/21 00:56 Solu-Medrol 40 Mg Administered 03/30/21 00:57 Dose 40 mg .ROUTE .STK-MED ONE Sterile Water Confirm 03/29/21 21:46 Sterile H2o 10 Ml Administered 03/29/21 21:47 Dose 10 ml IJ .STK-MED ONE Intake & Output (Last 24 hours) 03/28/21 03/29/21 03/30/21 07/15/21 11:59 11:59 11:59 11:59 Intake Total 480 Output Total 450 Balance 30 Weight 100.5 kg Microbiology Results (Last 24 hours) 03/29/21 17:52 Urine, Catheterized Urine Culture - Final <10K NORMAL SKIN TISHA PROBABLE SKIN CONTAMINANT 03/29/21 19:22 Blood Blood Culture Gram Stain - Pending 03/29/21 19:22 Blood Blood Culture - Preliminary NO GROWTH TO DATE 03/29/21 19:29 Blood Blood Culture Gram Stain - Pending 03/29/21 19:29 Blood Blood Culture - Preliminary NO GROWTH TO DATE Laboratory Results (Last 24 hours) 03/31/21 03/31/21 03/30/21 07:14 05:37 22:10 WBC RBC Hgb Hct MCV MCH MCHC RDW Plt Count MPV Sodium Potassium Chloride Carbon Dioxide Anion Gap BUN Creatinine Estimated GFR Glucose 497 H POC Glucometer 237 H Calcium Total Bilirubin AST ALT Alkaline Phosphatase Troponin I Serum Total Protein Albumin Triglycerides 123 Cholesterol 102 LDL Cholesterol 63 HDL Cholesterol 30 L Heart Disease Risk Ratio 3.4 03/30/21 03/30/21 03/30/21 22:00 21:00 16:50 WBC RBC Hgb Hct MCV MCH MCHC RDW Plt Count MPV Sodium Potassium Chloride Carbon Dioxide Anion Gap BUN Creatinine Estimated GFR Glucose 551 H* POC Glucometer 568 H* 512 H* Calcium Total Bilirubin AST ALT Alkaline Phosphatase Troponin I Serum Total Protein Albumin Triglycerides Cholesterol LDL Cholesterol HDL Cholesterol Heart Disease Risk Ratio 03/30/21 03/30/21 03/30/21 16:38 16:31 12:05 WBC RBC Hgb Hct MCV MCH MCHC RDW Plt Count MPV Sodium 131 L Potassium 4.4 Chloride 95 L Carbon Dioxide 24 Anion Gap 17.0 H BUN 24 H Creatinine 1.24 Estimated GFR 59.8 Glucose 385 H POC Glucometer 484 H TNP Calcium 8.1 L Total Bilirubin 0.70 AST 26 ALT 12 Alkaline Phosphatase 63 Troponin I Serum Total Protein 6.6 Albumin 3.6 Triglycerides Cholesterol LDL Cholesterol HDL Cholesterol Heart Disease Risk Ratio 03/30/21 03/30/21 03/30/21 12:05 12:05 11:34 WBC 5.9 RBC 3.31 L Hgb 10.4 L Hct 31.5 L MCV 95.2 MCH 31.4 MCHC 33.0 RDW 14.1 H Plt Count 145 L MPV 9.0 Sodium Potassium Chloride Carbon Dioxide Anion Gap BUN Creatinine Estimated GFR Glucose POC Glucometer 337 H Calcium Total Bilirubin AST ALT Alkaline Phosphatase Troponin I 0.024 Serum Total Protein Albumin Triglycerides Cholesterol LDL Cholesterol HDL Cholesterol Heart Disease Risk Ratio 03/30/21 03/30/21 09:35 09:07 WBC RBC Hgb Hct MCV MCH MCHC RDW Plt Count MPV Sodium Potassium Chloride Carbon Dioxide Anion Gap BUN Creatinine Estimated GFR Glucose POC Glucometer 256 H Calcium Total Bilirubin AST ALT Alkaline Phosphatase Troponin I 0.036 H* Serum Total Protein Albumin Triglycerides Cholesterol LDL Cholesterol HDL Cholesterol Heart Disease Risk Ratio Orders (Last 24 hours) Category Date Time Status POCT Glucose Check ACHS Care 03/30/21 09:22 Active CBC Routine Lab 03/30/21 12:05 Completed CMP Routine Lab 03/30/21 12:05 Completed Glucose Stat Lab 03/30/21 16:50 Completed Glucose Stat Lab 03/30/21 22:10 Completed LIPID PROFILE AM.LAB Lab 03/31/21 05:37 Completed POCT GLUCOSE Stat Lab 03/30/21 09:35 Completed POCT GLUCOSE Stat Lab 03/30/21 11:34 Completed POCT GLUCOSE Stat Lab 03/30/21 16:31 Completed POCT GLUCOSE Stat Lab 03/30/21 16:38 Completed POCT GLUCOSE Stat Lab 03/30/21 21:00 Completed POCT GLUCOSE Stat Lab 03/30/21 22:00 Completed POCT GLUCOSE Stat Lab 03/31/21 07:14 Completed TROPONIN Q3H Lab 03/30/21 09:07 Completed TROPONIN Q3H Lab 03/30/21 12:05 Completed Amlodipine Besylate 5 mg [Norvasc 5 mg] Med 03/30/21 22:00 Active 5 mg PO HS Apixaban [Eliquis 2.5 mg Tablet] Med 03/30/21 14:00 Active 5 mg PO DAILY Azithromycin 500 mg/250 ml [Zithromax 500 MG/ 250 ML Med 03/30/21 20:00 Active NaCl Premix] 500 mg in 250 ml IV Q24H Beta-Carotene(A) W-C & E/Min [Ocuvite Tablet] Med 03/30/21 14:00 Active 1 tab PO BID Carvedilol 3.125 mg [Coreg 3.125 MG] Med 03/30/21 14:00 Active 3.125 mg PO BID Ceftriaxone 1 GM/50 ML PREMIX* [ROCEPHIN 1 Gm-D5w 50 ml Med 03/30/21 19:00 Active Bag] 1 g in 50 ml IV Q24H Celecoxib 100 mg [celeBREX 100 MG] Med 03/30/21 14:00 Active 100 mg PO DAILY Clopidogrel Bisulfate 75 mg [PLAVIX 75 MG Tablet] Med 03/30/21 14:00 Active 75 mg PO DAILY Gabapentin 300 mg [Neurontin 300 mg] Med 03/30/21 14:00 Discontinued 300 mg PO BID Glipizide 5 mg [Glucotrol 5 MG] Med 03/30/21 16:30 Active 5 mg PO BIDAC Insulin Regular, Human [Humulin R] Med 03/30/21 17:22 Active See Dose Instructions SQ UD PRN Isosorbide Mononitrate 60 mg [Imdur 60MG] Med 03/30/21 14:00 Active 60 mg PO DAILY Medication Intervention Med 03/30/21 13:45 Active 1 each PO .RN TO CHECK Medication Intervention Med 03/30/21 13:45 Active 1 each PO .RN TO CHECK Medication Intervention Med 03/30/21 13:45 Active 1 each PO .RN TO CHECK Metformin HCl 500 mg [Glucophage 500 MG] Med 03/30/21 17:00 Active 1,000 mg PO BIDWMEALS Nitroglycerin 0.4 mg Tablet [Nitrostat 0.4 MG Tablet Med 03/30/21 12:51 Active ] 0.4 mg SL Q5MIN PRN MR X 3 PRN Oxybutynin Chloride Xl 5 mg [Ditropan XL 5 MG] Med 03/30/21 14:00 Active 10 mg PO DAILY Simvastatin 20Mg [Zocor 20Mg] Med 03/30/21 22:00 Active 20 mg PO HS Tamsulosin HCl 0.4 mg [Flomax 0.4 MG] Med 03/30/21 14:00 Active 0.4 mg PO DAILY EKG ONCE RT 03/30/21 09:07 Active EKG ONCE RT 03/31/21 05:00 Active EKG ONCE RT 04/01/21 05:00 Active EKG ONCE RT 04/02/21 05:00 Active Oxygen Nasal Cannula 2 lpm RT 03/31/21 05:38 Active Code(s): J18.9 - PNEUMONIA, UNSPECIFIED ORGANISM (2) Confusion Current Visit: Yes Status: Resolved Code(s): R41.0 - DISORIENTATION, UNSPECIFIED (3) Elevated troponin Current Visit: Yes Status: Resolved Code(s): R77.8 - OTHER SPECIFIED ABNORMALITIES OF PLASMA PROTEINS
[2021-03-31] MEDS: HUMULIN R SQ PRN ×2 (08:36→12:56)
[2021-03-31] MEDS ORDERED: NON-FORMULARY ITEM (Oxybutynin Chloride [Oxybutynin Chloride Er] 10 MG) PO SCH (10:00)
[2021-03-31] MEDS ORDERED: NON-FORMULARY ITEM (Apixaban [Eliquis] 5 MG) PO SCH (10:00)
[2021-03-31] MEDS ORDERED: FESOTERODINE FUMARATE 8 MG PO SCH (10:00)
[2021-03-31] MEDS ORDERED: NON-FORMULARY ITEM (Cyanocobalamin/Folic Acid [Vitamin B12-Folic Acid Tablet] 1 EACH) PO SCH (10:00)
[2021-03-31] MEDS ORDERED: NON-FORMULARY ITEM (Folic Acid/Vit B Complex And C [Folbee Plus Tablet] 5 MG) PO SCH (10:00)
[2021-03-31] MEDS: Flomax 0.4 MG PO SCH (10:03)
[2021-03-31] MEDS: Ocuvite Tablet PO SCH (10:04)
[2021-03-31] MEDS: celeBREX 100 MG PO SCH (10:04)
[2021-03-31] MEDS: ELIQUIS 2.5 MG TABLET PO SCH (10:04)
[2021-03-31] MEDS: Imdur 60MG PO SCH (10:04)
[2021-03-31] MEDS: Coreg 3.125 MG PO SCH (10:05)
[2021-03-31] MEDS: PLAVIX 75 MG Tablet PO SCH (10:05)
[2021-03-31] MEDS: Ditropan XL 5 MG PO SCH (10:05)
[2021-03-31 12:26] VITALS: BP 149/70; PULSE 74; O2SAT 97
== END 2021-03-31 16:15 ==
LOC: ED 17:01 → MED SURG 03-30 05:53
PROVIDERS: ADMIT General Practice; ATTEND General Practice
DX: J18.9 Pneumonia, unspecified organism (principal); R41.0 Disorientation, unspecified; R53.1 Weakness; Z79.899 Other long term (current) drug therapy; Z79.01 Long term (current) use of anticoagulants; M25.512 Pain in left shoulder; E11.9 Type 2 diabetes mellitus without complications; Z86.73 Personal history of transient ischemic attack (TIA), and cerebral infarction without residual deficits; R77.8 Other specified abnormalities of plasma proteins; Z20.828 Contact with and (suspected) exposure to other viral communicable diseases; M25.551 Pain in right hip; I10 Essential (primary) hypertension; E78.00 Pure hypercholesterolemia, unspecified
CPT/HCPCS: 36415; 70450; 71046; 71260; 80053; 80061; 81001; 82805; 82947; 83721; 83880; 84484; 85025; 85027; 85379; 85610; 85730; 87040; 87086; 93005; 93041; 93268; 94762; 96365; 96368; 96372; 96374; 96375; 96376; 99285; 99291; G0378; U0003; J0456; J0696; J1200; J1650; J1815; J1940; J2920; J2930; A9270-GY

== ENCOUNTER 2021-07-22 14:36 | Emergency (ER) | payer MEDICARE, OTHER ==
[2021-07-22 15:31] LABS: Absolute Neutrophil Ct (ANC) 9.13 (1.4-6.9); Basophil (Absolute #) 0 (0-0.4); Eosinophil (Absolute #) 0 (0-0.5); Hematocrit 37.1 % (42-50); Hemoglobin 12.3 gm/dl (12.5-18.0); Lymphocyte (Absolute #) 0.49 (1.0-4.6); Lymphocytes % 4.8 % (24.0-44.0); Mean Cell Volume 93.5 fl (78-100); Mean Corpuscular Hgb Concent. 33.2 g/dl (32-36); Mean Platelet Volume 8.9 fl (7.5-11.0); Monocyte (Absolute #) 0.62 (0.0-1.3); Monocytes % 6.1 % (0.0-12.0); Neutrophil % 89.1 % (36.0-66.0); Platelet Count 170 K/mm3 (150-450); Red Blood Count 3.97 M/mm3 (4.1-5.6); Red Cell Distribution Width 13.7 % (11.5-14.0); White Blood Count 10.2 K/mm3 (4.0-10.5)
[2021-07-22 15:33] LABS: INR 1.53 (0.8-3.0); PROTIME 18.1 SECONDS (9.4-12.5)
[2021-07-22 15:35] LABS: PTT 33.1 SECONDS (25.1-36.5)
[2021-07-22 15:37] LABS: ALBUMIN 4.6 g/dL (3.5-5.0); ALKALINE PHOSPHATASE 73 U/L (38-126); ANION GAP 18.7 MEQ/L (5-15); BLOOD UREA NITROGEN 15 mg/dL (9-20); CHLORIDE 92 mmol/L (98-107); Carbon Dioxide 21 mmol/L (22-30); Creatinine 1 0.98 mg/dL (0.66-1.25); EST GLOMERULAR FILTRATION RATE > 60.0 ML/MIN; Glucose 316 mg/dL (74-106); Potassium 4.4 mmol/L (3.5-5.1); SGOT/AST 43 U/L (17-59); SGPT/ALT 16 U/L (0-50); SODIUM 127 mmol/L (137-145)
[2021-07-22 15:54] LABS: Slide Review 1 YES
--- NOTE | 2021-07-22 16:03 | XRAY ---
On confusion. Multiple contiguous axial images obtained through the head without contrast. Impression: Joint 2020. Again age-appropriate global atrophy and moderate periventricular degenerative micro-ischemia bilaterally. No acute intracranial hemorrhage, abnormal extra-axial fluid collection, or mass effect. Fourth ventricle is midline without hydrocephalus. Bony calvarium intact. Visualized paranasal sinuses are clear. Again complete opacification of the right mastoid air cells presumed inflammatory. Impression: Continued nonacute senile brain. Again opacification right mastoid air cells presumed inflammatory. No new/acute intracranial abnormalities.
--- NOTE | 2021-07-22 16:12 | ERPHSYRPT ---
- History of Present Illness Source: patient Exam Limitations: other (Poor historian) Patient Subjective Stated Complaint: pt here for confusion, son-in -law states he was seen normal last night at 2230 and when they checked on him this morning he was confused and in living room in only a t shirt. no known fall, pt lives alone and does well , recently had URI and started on new meds Triage Nursing Assessment: pt alert, but confused to date and time, skin w/d/p. resp easy, face mask in place, abd soft, he co pain to hips Physician History: 81 yo wm w altered mental status today. Pt last seen in normal state 22:30 last night. No evidence of trauma. Pt alert and oriented x2(Disoriented to time). He denies N/V/dyspnea/fever/chest pain/cough/coryza/dysuria/hematuria/focal weakness. Timing/Duration: today Severity: mild Character of Deficits: other (Confusion) Deficits: decrease ability to stand Baseline/Normal Cognition: alert oriented x 3 Current Cognition: alert/disoriented to time Associated Symptoms: confusion, No fatigue, No fever, No chills, No loss of c onsciousness, No nausea, No vomiting, No weakness, No insomnia, No muscle spasms, No numbness/tingling in legs/feet, No paresthesia, No ringing in ears, No seizures, No slurred speech, No trouble walking, No vision changes, No chest pain, No headache Allergies/Adverse Reactions: Sulfa (Sulfonamide Antibiotics) Allergy (Severe, Verified 03/30/21 06:31) Iodinated Contrast Media [Iodinated Contrast Media - IV Dye] Allergy (Mild, Verified 03/30/21 06:31) morphine Allergy (Mild, Verified 03/30/21 06:31) ofloxacin Allergy (Mild, Verified 03/30/21 06:31) Home Medications: Amlodipine Besylate 5 mg PO HS 06/27/13 [History] B2/Vits A,C,E/Lut/Zeaxanth/Min [Icaps Tablet] 1 each PO BID 06/27/13 [History] Buspirone HCl [Buspar] 15 mg PO BID 06/27/13 [History] Clopidogrel Bisulfate 75 mg [PLAVIX 75 MG Tablet] 75 mg PO DAILY 06/27/13 [History] Cyanocobalamin/Folic Acid [Vitamin L97-Xghdw Acid Tablet] 1 each PO DAILY 06/27/13 [History] Glipizide 5 mg [Glucotrol 5 MG] 5 mg PO BID 06/27/13 [History] Metformin HCl 500 mg [Glucophage 500 MG] 1,000 mg PO BID 06/27/13 [History] Carvedilol [Coreg] 3.125 mg PO BID 04/03/18 [History] Fesoterodine Fumarate [Toviaz] 8 mg PO DAILY 04/03/18 [History] Gabapentin 300 mg PO BID 04/03/18 [History] Isosorbide Mononitrate [Isosorbide Mononitrate ER] 60 mg PO DAILY 04/03/18 [History] Tamsulosin HCl 0.4 mg [Flomax 0.4 MG] 0.4 mg PO DAILY 04/03/18 [History] Apixaban [Eliquis] 5 mg PO DAILY 03/30/21 [History] Atorvastatin Calcium 20 mg PO HS 03/30/21 [History] Folic Acid/Vit B Complex and C [Folbee Plus Tablet] 5 mg PO DAILY 03/30/21 [History] Nitroglycerin 0.4 mg Tablet [Nitrostat 0.4 MG Tablet] 0.4 mg SL Q5MIN PRN MR X 3 PRN MDD 3 03/30/21 [History] Oxybutynin Chloride [Oxybutynin Chloride ER] 10 mg PO DAILY 03/30/21 [History] Hx Tetanus, Diphtheria Vaccination/Date Given: Yes Hx Influenza Vaccination/Date Given: Yes Hx Pneumococcal Vaccination/Date Given: Yes Immunizations Up to Date: Yes Travel Risk - International Travel Have you traveled outside of the country in past 3 weeks: No - Coronavirus Screening Are you exhibiting any of the following symptoms?: No Close contact with a COVID-19 positive Pt in past 14-21 Days: No - Vaccine Status Have you recieved a Covid-19 vaccination: Yes Light Out Examiner: Moderna - Vaccination Dates Date of 2cond Vaccination (if applicable): 01/20/21 - Review of Systems Constitutional: No Symptoms, Weakness Eyes: No Symptoms Ears, Nose, & Throat: No Symptoms Respiratory: No Symptoms Cardiac: No Symptoms Abdominal/Gastrointestinal: No Symptoms Skin: No Symptoms Neurological: No Symptoms, No Focal Weakness Psychological: No Symptoms Endocrine: No Symptoms Hematologic/Lymphatic: No Symptoms Immunological/Allergic: No Symptoms - Past Medical History Pertinent Past Medical History: Yes Neurological History: Stroke ENT History: No Pertinent History Cardiac History: Coronary Artery Disease, High Cholesterol, Hypertension, Myocardial Infarction ([place]) Respiratory History: Sleep Apnea, Other Endocrine Medical History: Diabetes Type II Musculoskeletal History: Degenerative Disk Disease, Osteoarthritis GI Medical History: No Pertinent History History: No Pertinent History Psycho-Social History: Anxiety Male Reproductive Disorders: Prostate Problems Other Medical History: CVA 2010. 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 one stent and double hernia, cardiac cath x 5 - Social History Smoking Status: Never smoker Exposure to second hand smoke: No Alcohol Use: None Drug Use: none Patient Lives Alone: Yes Significant Family History: heart disease, diabetes, hypertension - Nursing Vital Signs Nursing Vital Signs: Initial Vital Signs Temperature 100 F 07/22/21 14:51 Pulse Rate 96 H 07/22/21 14:51 Respiratory Rate 22 07/22/21 14:51 Blood Pressure 174/109 07/22/21 14:51 O2 Sat by Pulse Oximetry 96 07/22/21 14:51 Pain Scale Pain Intensity 0 Hypertensive/Borderline fever - [place] Coma Scale Best Eye Response (Craig): (4) open spontaneously Best Verbal Response (Craig): (4) confused conversation Best Motor Response (Craig): (6) obeys commands Craig Total: 14 - Physical Exam General Appearance: no apparent distress Eye Exam: bilateral eye: normal inspection, PERRL, EOMI Ears, Nose, Throat Exam: normal ENT inspection, TMs normal, pharynx normal, moist mucous membranes Neck Exam: normal inspection, non-tender, supple, full range of motion, No meningismus, No mass, No Brudzinski, No Kernig's, No carotid bruit Respiratory: normal breath sounds, lungs clear, airway intact, No respiratory distress Cardiovascular: regular rate/rhythm, normal heart sounds, normal peripheral pulses, capillary refill <2 sec, No murmur Gastrointestinal: soft, normal bowel sounds, No tenderness Extremity Exam: normal inspection, normal range of motion Peripheral Pulses: carotid (R): 2+, carotid (L): 2+ Mental Status: alert, cooperative, disoriented to time concrete smoother Exam: normal hearing, normal speech, PERRL, No abnormal eye position, No abnormal gag reflex, No abnormal pupil position Motor/Sensory: no motor deficit, no sensory deficit, negative Babinski's sign DTR: bicep (R): 2+, bicep (L): 2+, knee (R): 2+, knee (L): 2+ Skin Exam: normal color, warm, dry, No rash SpO2 Interpretation: normal SpO2: 96 O2 Delivery: Room Air - Course Nursing assessment & vital signs reviewed: Yes EKG Interpreted by Me: RATE (LBBB/Prolonged QT-QTc/NL P waves) - CT Exams Head CT Interpretation: Discussed w/radiologist (NAD) Chest CT Interpretation: Tele-radiologist Report (No pneumonia/Mild interstitual prominence) Ordered Tests: Active Orders 24 hr Category Date Time Status CO2 Monitoring ROUTINE Care 07/22/21 18:23 Completed NPO (ED) STAT Care 07/22/21 15:12 Completed CHEST 1 VIEW (PORTABLE) Stat Exams 07/22/21 15:13 Completed CHEST WITHOUT CONTRAST [CT] Stat Exams 07/22/21 20:32 Taken HEAD WITHOUT CONTRAST [CT] Stat Exams 07/22/21 15:13 Completed ABG [ARTERIAL BLOOD GASES] Stat Lab 07/22/21 18:00 Completed BLOOD CULTURE Stat Lab 07/22/21 23:10 Received CBC W DIFF Stat Lab 07/22/21 15:12 Completed CMP Stat Lab 07/22/21 15:35 Completed CULTURE,URINE Stat Lab 07/22/21 16:00 Ordered ETHYL ALCOHOL Stat Lab 07/22/21 18:16 Completed Lactic Acid Stat Lab 07/22/21 15:12 Completed Lactic Acid Stat Lab 07/22/21 18:01 Completed POCT GLUCOSE Stat Lab 07/22/21 15:03 Completed POCT GLUCOSE Stat Lab 07/22/21 18:26 Completed PROTIME WITH INR Stat Lab 07/22/21 15:12 Completed PTT Stat Lab 07/22/21 15:12 Completed TROPONIN Q3H Lab 07/22/21 15:30 Completed TROPONIN Q3H Lab 07/22/21 18:00 Completed TROPONIN Q3H Lab 07/23/21 00:50 Completed UA W/RFX UR CULTURE Stat Lab 07/22/21 16:00 Completed Urine Triage Profile Stat Lab 07/22/21 18:25 Completed Medication Summary Discontinued Medications Generic Name Dose Route Start Last Admin Trade Name Marleni PRN Reason Stop Dose Admin Acetaminophen 1,000 mg 07/22/21 22:45 07/22/21 23:08 Acetaminophen 500 Mg Tablet PO 08/21/21 22:44 1,000 mg Q4H PRN PRN Administration HEADACHE Acetaminophen Confirm 07/22/21 23:06 Acetaminophen 500 Mg Tablet Administered 07/22/21 23:07 Dose 1,000 mg .ROUTE .STK-MED ONE Aspirin 324 mg 07/22/21 21:52 07/22/21 21:58 Aspirin 81 Mg Tab.Chew PO 07/22/21 21:53 324 mg STAT ONE Administration Sodium Chloride 1,000 mls @ 999 mls/hr 07/22/21 20:54 07/22/21 22:05 Sodium Chloride 0.9% 1000 Ml IV 07/22/21 21:54 Infused .Q1H1M STA Infusion Sodium Chloride Confirm 07/22/21 20:56 Sodium Chloride 0.9% 1000 Ml Administered 07/22/21 20:57 Dose 1,000 mls @ ud .ROUTE .STK-MED ONE Ceftriaxone Sodium/Dextrose 1 g in 50 mls @ 100 mls/hr 07/22/21 22:47 07/22/21 23:59 Rocephin 1 Gm-D5w 50 Ml Bag IV 07/22/21 23:16 Infused STAT STA Infusion Ceftriaxone Sodium/Dextrose Confirm 07/22/21 23:06 Rocephin 1 Gm-D5w 50 Ml Bag Administered 07/22/21 23:07 Dose 1 g in 50 mls @ ud IV .STK-MED ONE Lorazepam 1 mg 07/22/21 18:25 07/22/21 18:42 Lorazepam 2 Mg/1 Ml 2 Mg Vial IV 07/22/21 18:26 1 mg STAT ONE Administration Lorazepam Confirm 07/22/21 18:38 Lorazepam 2 Mg/1 Ml 2 Mg Vial Administered 07/22/21 18:39 Dose 2 mg .ROUTE .STK-MED ONE Lab/Rad Data: Laboratory Result Diagrams 07/22/21 15:12 07/22/21 15:35 Laboratory Results 07/23/21 07/22/21 07/22/21 Range/Units 00:50 20:35 18:26 WBC (4.0-10.5) K/mm3 RBC (4.1-5.6) M/mm3 Hgb (12.5-18.0) gm/dl Hct (42-50) % MCV (78-100) fl MCH (26-32) pg MCHC (32-36) g/dl RDW (11.5-14.0) % Plt Count (150-450) K/mm3 MPV (7.5-11.0) fl Gran % (36.0-66.0) % Eos # (Auto) (0-0.5) Absolute Lymphs (auto) (1.0-4.6) Absolute Monos (auto) (0.0-1.3) Lymphocytes % (24.0-44.0) % Monocytes % (0.0-12.0) % Eosinophils % (0.00-5.0) % Basophils % (0.0-0.4) % Absolute Granulocytes (1.4-6.9) Basophils # (0-0.4) PT (9.4-12.5) SECONDS INR (0.8-3.0) APTT (25.1-36.5) SECONDS Puncture Site pCO2 (35-45) mmHg pO2 (75-100) mmHg Base Excess (-2.0-2.0) O2 Saturation (94-100) g/dF ABG pH (7.35-7.45) ABG HCO3 (22-28) ABG O2 Sat (Measured) (95-100) % Barney Test A-a Gradient a/A Ratio Hemoglobin Carboxyhemoglobin (0.0-6.9) % THgb Methemoglobin (1.4-1.5) % Temperature C POC O2 Flow Rate % Sodium (137-145) mmol/L Potassium (3.5-5.1) mmol/L Chloride (98-107) mmol/L Carbon Dioxide (22-30) mmol/L Anion Gap (5-15) MEQ/L BUN (9-20) mg/dL Creatinine (0.66-1.25) mg/dL Estimated GFR ML/MIN Glucose (74-106) mg/dL POC Glucometer 342 H (74 to 106) mg/dL Lactic Acid (0.4-2.0) Calcium (8.4-10.2) mg/dL Total Bilirubin (0.2-1.3) mg/dL AST (17-59) U/L ALT (0-50) U/L Alkaline Phosphatase (38-126) U/L Ammonia (9-30) umol/L Troponin I 0.423 H* (0.000-0.034) ng/mL Serum Total Protein (6.3-8.2) g/dL Albumin (3.5-5.0) g/dL Urine Color (YELLOW) Urine Appearance (CLEAR) Urine pH (5-6) Ur Specific [place] (1.005-1.025) Urine Protein (Negative) Urine Ketones (NEGATIVE) Urine Blood (0-5) Chris/ul Urine Nitrite (NEGATIVE) Urine Bilirubin (NEGATIVE) Urine Urobilinogen (0-1) mg/dL Ur Leukocyte Esterase (NEGATIVE) Urine WBC (Auto) (0-5) /HPF Urine RBC (Auto) (0-2) /HPF U Hyaline Cast (Auto) (0-2) /LPF U Epithel Cells (Auto) (FEW) /HPF Urine Bacteria (Auto) (NEGATIVE) /HPF Urine Mucus (Auto) (NEGATIVE) /HPF Urine Culture Reflexed (NO) Urine Glucose (NEGATIVE) mg/dL Urine Opiates Level (NEGATIVE) Ur Methadone (NEGATIVE) Urine Barbiturates (NEGATIVE) Ur Phencyclidine (PCP) (NEGATIVE) Urine Amphetamine (NEGATIVE) U Benzodiazepine Level (NEGATIVE) Urine Cocaine (NEGATIVE) Urine Marijuana (THC) (NEGATIVE) Ethyl Alcohol (0-10) mg/dL Influenza Type A Ag NEGATIVE (NEGATIVE) Influenza Type B Ag NEGATIVE (NEGATIVE) RSV (PCR) NEGATIVE (Negative) SARS-CoV-2 (PCR) NEGATIVE (NEGATIVE) Slides for Path Review 07/22/21 07/22/21 07/22/21 Range/Units 18:25 18:16 18:01 WBC (4.0-10.5) K/mm3 RBC (4.1-5.6) M/mm3 Hgb (12.5-18.0) gm/dl Hct (42-50) % MCV (78-100) fl MCH (26-32) pg MCHC (32-36) g/dl RDW (11.5-14.0) % Plt Count (150-450) K/mm3 MPV (7.5-11.0) fl Gran % (36.0-66.0) % Eos # (Auto) (0-0.5) Absolute Lymphs (auto) (1.0-4.6) Absolute Monos (auto) (0.0-1.3) Lymphocytes % (24.0-44.0) % Monocytes % (0.0-12.0) % Eosinophils % (0.00-5.0) % Basophils % (0.0-0.4) % Absolute Granulocytes (1.4-6.9) Basophils # (0-0.4) PT (9.4-12.5) SECONDS INR (0.8-3.0) APTT (25.1-36.5) SECONDS Puncture Site pCO2 (35-45) mmHg pO2 (75-100) mmHg Base Excess (-2.0-2.0) O2 Saturation (94-100) g/dF ABG pH (7.35-7.45) ABG HCO3 (22-28) ABG O2 Sat (Measured) (95-100) % Barney Test A-a Gradient a/A Ratio Hemoglobin Carboxyhemoglobin (0.0-6.9) % THgb Methemoglobin (1.4-1.5) % Temperature C POC O2 Flow Rate % Sodium (137-145) mmol/L Potassium (3.5-5.1) mmol/L Chloride (98-107) mmol/L Carbon Dioxide (22-30) mmol/L Anion Gap (5-15) MEQ/L BUN (9-20) mg/dL Creatinine (0.66-1.25) mg/dL Estimated GFR ML/MIN Glucose (74-106) mg/dL POC Glucometer (74 to 106) mg/dL Lactic Acid 4.1 H (0.4-2.0) Calcium (8.4-10.2) mg/dL Total Bilirubin (0.2-1.3) mg/dL AST (17-59) U/L ALT (0-50) U/L Alkaline Phosphatase (38-126) U/L Ammonia (9-30) umol/L Troponin I (0.000-0.034) ng/mL Serum Total Protein (6.3-8.2) g/dL Albumin (3.5-5.0) g/dL Urine Color (YELLOW) Urine Appearance (CLEAR) Urine pH (5-6) Ur Specific [place] (1.005-1.025) Urine Protein (Negative) Urine Ketones (NEGATIVE) Urine Blood (0-5) Chris/ul Urine Nitrite (NEGATIVE) Urine Bilirubin (NEGATIVE) Urine Urobilinogen (0-1) mg/dL Ur Leukocyte Esterase (NEGATIVE) Urine WBC (Auto) (0-5) /HPF Urine RBC (Auto) (0-2) /HPF U Hyaline Cast (Auto) (0-2) /LPF U Epithel Cells (Auto) (FEW) /HPF Urine Bacteria (Auto) (NEGATIVE) /HPF Urine Mucus (Auto) (NEGATIVE) /HPF Urine Culture Reflexed (NO) Urine Glucose (NEGATIVE) mg/dL Urine Opiates Level NEGATIVE (NEGATIVE) Ur Methadone NEGATIVE (NEGATIVE) Urine Barbiturates NEGATIVE (NEGATIVE) Ur Phencyclidine (PCP) NEGATIVE (NEGATIVE) Urine Amphetamine NEGATIVE (NEGATIVE) U Benzodiazepine Level POSITIVE (NEGATIVE) Urine Cocaine NEGATIVE (NEGATIVE) Urine Marijuana (THC) NEGATIVE (NEGATIVE) Ethyl Alcohol < 10 (0-10) mg/dL Influenza Type A Ag (NEGATIVE) Influenza Type B Ag (NEGATIVE) RSV (PCR) (Negative) SARS-CoV-2 (PCR) (NEGATIVE) Slides for Path Review 07/22/21 07/22/21 07/22/21 Range/Units 18:00 18:00 18:00 WBC (4.0-10.5) K/mm3 RBC (4.1-5.6) M/mm3 Hgb (12.5-18.0) gm/dl Hct (42-50) % MCV (78-100) fl MCH (26-32) pg MCHC (32-36) g/dl RDW (11.5-14.0) % Plt Count (150-450) K/mm3 MPV (7.5-11.0) fl Gran % (36.0-66.0) % Eos # (Auto) (0-0.5) Absolute Lymphs (auto) (1.0-4.6) Absolute Monos (auto) (0.0-1.3) Lymphocytes % (24.0-44.0) % Monocytes % (0.0-12.0) % Eosinophils % (0.00-5.0) % Basophils % (0.0-0.4) % Absolute Granulocytes (1.4-6.9) Basophils # (0-0.4) PT (9.4-12.5) SECONDS INR (0.8-3.0) APTT (25.1-36.5) SECONDS Puncture Site RIGHT RADIAL pCO2 21 L (35-45) mmHg pO2 98 (75-100) mmHg Base Excess -4.6 L (-2.0-2.0) O2 Saturation 95.2 (94-100) g/dF ABG pH 7.50 H (7.35-7.45) ABG HCO3 16.4 L* (22-28) ABG O2 Sat (Measured) 98.1 (95-100) % Barney Test YES A-a Gradient 104 a/A Ratio 0.49 Hemoglobin 12.9 Carboxyhemoglobin 2.0 (0.0-6.9) % THgb Methemoglobin 1.0 L (1.4-1.5) % Temperature 37.0 C POC O2 Flow Rate 32 % Sodium (137-145) mmol/L Potassium 4.1 (3.5-5.1) mmol/L Chloride (98-107) mmol/L Carbon Dioxide (22-30) mmol/L Anion Gap (5-15) MEQ/L BUN (9-20) mg/dL Creatinine (0.66-1.25) mg/dL Estimated GFR ML/MIN Glucose (74-106) mg/dL POC Glucometer (74 to 106) mg/dL Lactic Acid (0.4-2.0) Calcium (8.4-10.2) mg/dL Total Bilirubin (0.2-1.3) mg/dL AST (17-59) U/L ALT (0-50) U/L Alkaline Phosphatase (38-126) U/L Ammonia < 9 L (9-30) umol/L Troponin I 0.124 H* (0.000-0.034) ng/mL Serum Total Protein (6.3-8.2) g/dL Albumin (3.5-5.0) g/dL Urine Color (YELLOW) Urine Appearance (CLEAR) Urine pH (5-6) Ur Specific [place] (1.005-1.025) Urine Protein (Negative) Urine Ketones (NEGATIVE) Urine Blood (0-5) Chris/ul Urine Nitrite (NEGATIVE) Urine Bilirubin (NEGATIVE) Urine Urobilinogen (0-1) mg/dL Ur Leukocyte Esterase (NEGATIVE) Urine WBC (Auto) (0-5) /HPF Urine RBC (Auto) (0-2) /HPF U Hyaline Cast (Auto) (0-2) /LPF U Epithel Cells (Auto) (FEW) /HPF Urine Bacteria (Auto) (NEGATIVE) /HPF Urine Mucus (Auto) (NEGATIVE) /HPF Urine Culture Reflexed (NO) Urine Glucose (NEGATIVE) mg/dL Urine Opiates Level (NEGATIVE) Ur Methadone (NEGATIVE) Urine Barbiturates (NEGATIVE) Ur Phencyclidine (PCP) (NEGATIVE) Urine Amphetamine (NEGATIVE) U Benzodiazepine Level (NEGATIVE) Urine Cocaine (NEGATIVE) Urine Marijuana (THC) (NEGATIVE) Ethyl Alcohol (0-10) mg/dL Influenza Type A Ag (NEGATIVE) Influenza Type B Ag (NEGATIVE) RSV (PCR) (Negative) SARS-CoV-2 (PCR) (NEGATIVE) Slides for Path Review 07/22/21 07/22/21 07/22/21 Range/Units 16:00 15:35 15:30 WBC (4.0-10.5) K/mm3 RBC (4.1-5.6) M/mm3 Hgb (12.5-18.0) gm/dl Hct (42-50) % MCV (78-100) fl MCH (26-32) pg MCHC (32-36) g/dl RDW (11.5-14.0) % Plt Count (150-450) K/mm3 MPV (7.5-11.0) fl Gran % (36.0-66.0) % Eos # (Auto) (0-0.5) Absolute Lymphs (auto) (1.0-4.6) Absolute Monos (auto) (0.0-1.3) Lymphocytes % (24.0-44.0) % Monocytes % (0.0-12.0) % Eosinophils % (0.00-5.0) % Basophils % (0.0-0.4) % Absolute Granulocytes (1.4-6.9) Basophils # (0-0.4) PT (9.4-12.5) SECONDS INR (0.8-3.0) APTT (25.1-36.5) SECONDS Puncture Site pCO2 (35-45) mmHg pO2 (75-100) mmHg Base Excess (-2.0-2.0) O2 Saturation (94-100) g/dF ABG pH (7.35-7.45) ABG HCO3 (22-28) ABG O2 Sat (Measured) (95-100) % Barney Test A-a Gradient a/A Ratio Hemoglobin Carboxyhemoglobin (0.0-6.9) % THgb Methemoglobin (1.4-1.5) % Temperature C POC O2 Flow Rate % Sodium 127 L (137-145) mmol/L Potassium 4.4 (3.5-5.1) mmol/L Chloride 92 L (98-107) mmol/L Carbon Dioxide 21 L (22-30) mmol/L Anion Gap 18.7 H (5-15) MEQ/L BUN 15 (9-20) mg/dL Creatinine 0.98 (0.66-1.25) mg/dL Estimated GFR > 60.0 ML/MIN Glucose 316 H (74-106) mg/dL POC Glucometer (74 to 106) mg/dL Lactic Acid (0.4-2.0) Calcium 9.0 (8.4-10.2) mg/dL Total Bilirubin 1.80 H (0.2-1.3) mg/dL AST 43 (17-59) U/L ALT 16 (0-50) U/L Alkaline Phosphatase 73 (38-126) U/L Ammonia (9-30) umol/L Troponin I 0.045 H* (0.000-0.034) ng/mL Serum Total Protein 8.0 (6.3-8.2) g/dL Albumin 4.6 (3.5-5.0) g/dL Urine Color YELLOW (YELLOW) Urine Appearance SLIGHTLY CLOUDY (CLEAR) Urine pH 5.0 (5-6) Ur Specific [place] 1.014 (1.005-1.025) Urine Protein >=500 (Negative) Urine Ketones SMALL (NEGATIVE) Urine Blood MODERATE (0-5) Chris/ul Urine Nitrite NEGATIVE (NEGATIVE) Urine Bilirubin NEGATIVE (NEGATIVE) Urine Urobilinogen NEGATIVE (0-1) mg/dL Ur Leukocyte Esterase NEGATIVE (NEGATIVE) Urine WBC (Auto) 3-5 (0-5) /HPF Urine RBC (Auto) 26-50 (0-2) /HPF U Hyaline Cast (Auto) 0-2 (0-2) /LPF U Epithel Cells (Auto) NONE (FEW) /HPF Urine Bacteria (Auto) RARE (NEGATIVE) /HPF Urine Mucus (Auto) SLIGHT (NEGATIVE) /HPF Urine Culture Reflexed ORDERED SEPARATELY (NO) Urine Glucose >=500 (NEGATIVE) mg/dL Urine Opiates Level (NEGATIVE) Ur Methadone (NEGATIVE) Urine Barbiturates (NEGATIVE) Ur Phencyclidine (PCP) (NEGATIVE) Urine Amphetamine (NEGATIVE) U Benzodiazepine Level (NEGATIVE) Urine Cocaine (NEGATIVE) Urine Marijuana (THC) (NEGATIVE) Ethyl Alcohol (0-10) mg/dL Influenza Type A Ag (NEGATIVE) Influenza Type B Ag (NEGATIVE) RSV (PCR) (Negative) SARS-CoV-2 (PCR) (NEGATIVE) Slides for Path Review 07/22/21 07/22/21 07/22/21 Range/Units 15:12 15:12 15:12 WBC 10.2 (4.0-10.5) K/mm3 RBC 3.97 L (4.1-5.6) M/mm3 Hgb 12.3 L (12.5-18.0) gm/dl Hct 37.1 L (42-50) % MCV 93.5 (78-100) fl MCH 31.0 (26-32) pg MCHC 33.2 (32-36) g/dl RDW 13.7 (11.5-14.0) % Plt Count 170 (150-450) K/mm3 MPV 8.9 (7.5-11.0) fl Gran % 89.1 H (36.0-66.0) % Eos # (Auto) 0 (0-0.5) Absolute Lymphs (auto) 0.49 L (1.0-4.6) Absolute Monos (auto) 0.62 (0.0-1.3) Lymphocytes % 4.8 L (24.0-44.0) % Monocytes % 6.1 (0.0-12.0) % Eosinophils % 0.0 (0.00-5.0) % Basophils % 0.0 (0.0-0.4) % Absolute Granulocytes 9.13 H (1.4-6.9) Basophils # 0 (0-0.4) PT 18.1 H (9.4-12.5) SECONDS INR 1.53 (0.8-3.0) APTT 33.1 (25.1-36.5) SECONDS Puncture Site pCO2 (35-45) mmHg pO2 (75-100) mmHg Base Excess (-2.0-2.0) O2 Saturation (94-100) g/dF ABG pH (7.35-7.45) ABG HCO3 (22-28) ABG O2 Sat (Measured) (95-100) % Barney Test A-a Gradient a/A Ratio Hemoglobin Carboxyhemoglobin (0.0-6.9) % THgb Methemoglobin (1.4-1.5) % Temperature C POC O2 Flow Rate % Sodium (137-145) mmol/L Potassium (3.5-5.1) mmol/L Chloride (98-107) mmol/L Carbon Dioxide (22-30) mmol/L Anion Gap (5-15) MEQ/L BUN (9-20) mg/dL Creatinine (0.66-1.25) mg/dL Estimated GFR ML/MIN Glucose (74-106) mg/dL POC Glucometer (74 to 106) mg/dL Lactic Acid 2.0 (0.4-2.0) Calcium (8.4-10.2) mg/dL Total Bilirubin (0.2-1.3) mg/dL AST (17-59) U/L ALT (0-50) U/L Alkaline Phosphatase (38-126) U/L Ammonia (9-30) umol/L Troponin I (0.000-0.034) ng/mL Serum Total Protein (6.3-8.2) g/dL Albumin (3.5-5.0) g/dL Urine Color (YELLOW) Urine Appearance (CLEAR) Urine pH (5-6) Ur Specific [place] (1.005-1.025) Urine Protein (Negative) Urine Ketones (NEGATIVE) Urine Blood (0-5) Chris/ul Urine Nitrite (NEGATIVE) Urine Bilirubin (NEGATIVE) Urine Urobilinogen (0-1) mg/dL Ur Leukocyte Esterase (NEGATIVE) Urine WBC (Auto) (0-5) /HPF Urine RBC (Auto) (0-2) /HPF U Hyaline Cast (Auto) (0-2) /LPF U Epithel Cells (Auto) (FEW) /HPF Urine Bacteria (Auto) (NEGATIVE) /HPF Urine Mucus (Auto) (NEGATIVE) /HPF Urine Culture Reflexed (NO) Urine Glucose (NEGATIVE) mg/dL Urine Opiates Level (NEGATIVE) Ur Methadone (NEGATIVE) Urine Barbiturates (NEGATIVE) Ur Phencyclidine (PCP) (NEGATIVE) Urine Amphetamine (NEGATIVE) U Benzodiazepine Level (NEGATIVE) Urine Cocaine (NEGATIVE) Urine Marijuana (THC) (NEGATIVE) Ethyl Alcohol (0-10) mg/dL Influenza Type A Ag (NEGATIVE) Influenza Type B Ag (NEGATIVE) RSV (PCR) (Negative) SARS-CoV-2 (PCR) (NEGATIVE) Slides for Path Review YES 07/22/21 Range/Units 15:03 WBC (4.0-10.5) K/mm3 RBC (4.1-5.6) M/mm3 Hgb (12.5-18.0) gm/dl Hct (42-50) % MCV (78-100) fl MCH (26-32) pg MCHC (32-36) g/dl RDW (11.5-14.0) % Plt Count (150-450) K/mm3 MPV (7.5-11.0) fl Gran % (36.0-66.0) % Eos # (Auto) (0-0.5) Absolute Lymphs (auto) (1.0-4.6) Absolute Monos (auto) (0.0-1.3) Lymphocytes % (24.0-44.0) % Monocytes % (0.0-12.0) % Eosinophils % (0.00-5.0) % Basophils % (0.0-0.4) % Absolute Granulocytes (1.4-6.9) Basophils # (0-0.4) PT (9.4-12.5) SECONDS INR (0.8-3.0) APTT (25.1-36.5) SECONDS Puncture Site pCO2 (35-45) mmHg pO2 (75-100) mmHg Base Excess (-2.0-2.0) O2 Saturation (94-100) g/dF ABG pH (7.35-7.45) ABG HCO3 (22-28) ABG O2 Sat (Measured) (95-100) % Barney Test A-a Gradient a/A Ratio Hemoglobin Carboxyhemoglobin (0.0-6.9) % THgb Methemoglobin (1.4-1.5) % Temperature C POC O2 Flow Rate % Sodium (137-145) mmol/L Potassium (3.5-5.1) mmol/L Chloride (98-107) mmol/L Carbon Dioxide (22-30) mmol/L Anion Gap (5-15) MEQ/L BUN (9-20) mg/dL Creatinine (0.66-1.25) mg/dL Estimated GFR ML/MIN Glucose (74-106) mg/dL POC Glucometer 315 H (74 to 106) mg/dL Lactic Acid (0.4-2.0) Calcium (8.4-10.2) mg/dL Total Bilirubin (0.2-1.3) mg/dL AST (17-59) U/L ALT (0-50) U/L Alkaline Phosphatase (38-126) U/L Ammonia (9-30) umol/L Troponin I (0.000-0.034) ng/mL Serum Total Protein (6.3-8.2) g/dL Albumin (3.5-5.0) g/dL Urine Color (YELLOW) Urine Appearance (CLEAR) Urine pH (5-6) Ur Specific [place] (1.005-1.025) Urine Protein (Negative) Urine Ketones (NEGATIVE) Urine Blood (0-5) Chris/ul Urine Nitrite (NEGATIVE) Urine Bilirubin (NEGATIVE) Urine Urobilinogen (0-1) mg/dL Ur Leukocyte Esterase (NEGATIVE) Urine WBC (Auto) (0-5) /HPF Urine RBC (Auto) (0-2) /HPF U Hyaline Cast (Auto) (0-2) /LPF U Epithel Cells (Auto) (FEW) /HPF Urine Bacteria (Auto) (NEGATIVE) /HPF Urine Mucus (Auto) (NEGATIVE) /HPF Urine Culture Reflexed (NO) Urine Glucose (NEGATIVE) mg/dL Urine Opiates Level (NEGATIVE) Ur Methadone (NEGATIVE) Urine Barbiturates (NEGATIVE) Ur Phencyclidine (PCP) (NEGATIVE) Urine Amphetamine (NEGATIVE) U Benzodiazepine Level (NEGATIVE) Urine Cocaine (NEGATIVE) Urine Marijuana (THC) (NEGATIVE) Ethyl Alcohol (0-10) mg/dL Influenza Type A Ag (NEGATIVE) Influenza Type B Ag (NEGATIVE) RSV (PCR) (Negative) SARS-CoV-2 (PCR) (NEGATIVE) Slides for Path Review - Progress Progress Note: 07/22/21 23:34 Regional full Pt accepted by Dr. Angulo at [facility] 07/23/21 05:58 Ativan 1mg IV which helped w agitation 07/23/21 05:59 1gm IV Rocephin 07/23/21 05:59 Pt stable when care assumed by ambulance crew 07/23/21 06:01 [id number] po when troponin elevating Counseled pt/family regarding: lab results, diagnosis, rad results - Departure Departure Disposition: Transfer Clinical Impression: NSTEMI (non-ST elevated myocardial infarction), Fever Condition: Stable Critical Care Time: Yes Critical Care Time(excluding separately billable procedures): Critical 30-74 mins Referrals: LAURENT MEDRANO MD [Primary Care Provider] - Follow up/PCP as directed
[2021-07-22 17:09] LABS: Appearance SLIGHTLY CLOUDY (CLEAR); Bacteria RARE /HPF (NEGATIVE); Bilirubin NEGATIVE (NEGATIVE); Blood MODERATE Ery/ul (0-5); Glucose >=500 mg/dL (NEGATIVE); Hyaline Casts 0-2 /LPF (0-2); Ketones SMALL (NEGATIVE); Leukocyte Esterase NEGATIVE (NEGATIVE); Mucus SLIGHT /HPF (NEGATIVE); Nitrite NEGATIVE (NEGATIVE); Protein,Urine Dip >=500 (Negative); RBC 26-50 /HPF (0-2); Specific Gravity 1.014 (1.005-1.025); Urobilinogen NEGATIVE mg/dL (0-1)
[2021-07-22 17:18] VITALS: BP 173/100; PULSE 129; O2SAT 91
[2021-07-22 18:04] LABS: A-aADO2 104; ABG HEMOGLOBIN 12.9; ABG POTASSIUM 4.1 (3.5-5.1); ARTERIAL BLD GAS O2 SATURATION 98.1 % (95-100); ARTERIAL BLOOD GAS BASE EXCESS -4.6 (-2.0-2.0); ARTERIAL BLOOD GAS FIO2 32 %; ARTERIAL BLOOD GAS PCO2 21 mmHg (35-45); ARTERIAL BLOOD GAS PO2 98 mmHg (75-100); HCO3- 16.4 (22-28); HGB O2 SAT 95.2 g/dF (94-100)
[2021-07-22 18:05] LABS: ABG SITE RIGHT RADIAL; ALLEN TEST OK? YES
[2021-07-22] MEDS ORDERED: Ativan 2 MG/1 ML VIAL IV ONE (18:25)
[2021-07-22] MEDS ORDERED: Ativan 2 MG/1 ML VIAL ONE (18:38)
[2021-07-22 19:31] LABS: Barbiturate,Urine NEGATIVE (NEGATIVE); Benzodiazepine,Urine POSITIVE (NEGATIVE); Cocaine,Urine NEGATIVE (NEGATIVE); Opiate,Urine NEGATIVE (NEGATIVE); PCP,Urine NEGATIVE (NEGATIVE); THC,Urine NEGATIVE (NEGATIVE)
[2021-07-22 19:34] LABS: Amphetamine,Urine NEGATIVE (NEGATIVE)
[2021-07-22 19:38] LABS: Methadone,Urine NEGATIVE (NEGATIVE)
[2021-07-22] MEDS ORDERED: Sodium Chloride 0.9% 1000 ML 1,000 ML IV STA (20:54)
[2021-07-22] MEDS ORDERED: Sodium Chloride 0.9% 1000 ML 1,000 ML ONE (20:56)
[2021-07-22 21:35] LABS: INFLUENZA A NEGATIVE (NEGATIVE); INFLUENZA B NEGATIVE (NEGATIVE); RESPIRATORY SYNCTIAL VIRUS NEGATIVE (Negative); SARS-CoV-2 Xpert Express NEGATIVE (NEGATIVE)
--- NOTE | 2021-07-22 21:36 | XRAY ---
Indication: Cough and congestion. Comparison: March 29, 2021. Portable apical lordotic chest again demonstrates cardiomegaly with mild bibasilar infiltrates versus atelectasis. No consolidation/large effusion. Bony thorax intact again with osteopenia and degenerative changes.
[2021-07-22] MEDS ORDERED: BABY ASPIRIN 81 MG CHEW PO ONE (21:52)
[2021-07-22] MEDS ORDERED: TYLENOL EXTRA STRENGTH 500 MG PO PRN (22:45)
[2021-07-22] MEDS ORDERED: ROCEPHIN 1 Gm-D5w 50 ml Bag** 1 G/50 ML IVPB IV STA (22:47)
[2021-07-22] MEDS ORDERED: TYLENOL EXTRA STRENGTH 500 MG ONE (23:06)
[2021-07-22] MEDS ORDERED: ROCEPHIN 1 Gm-D5w 50 ml Bag** 1 G/50 ML IVPB IV ONE (23:06)
--- NOTE | 2021-07-23 08:02 | XRAY ---
Indication: Fever and confusion. Multiple contiguous images obtained through the chest without contrast. Comparison: March 30, 2021. Study degraded by respiration artifact throughout. Lungs are inflated with mild bilateral dependent atelectasis and minimal bibasilar fibrosis/scarring. Previous left lower lobe consolidation has cleared. No suspicious pulmonary mass, infiltrate, consolidation, effusion, or pneumothorax. Heart is not enlarged with again prominent epicardiac fat. Aorta remains mildly arteriosclerotic without aneurysm. Stable small mediastinal and right hilar calcified nodes. No pathologic mediastinal lymphadenopathy. Bony thorax intact again with osteopenia and mild/moderate degenerative changes throughout the spine. Limited upper abdomen unremarkable. Impression: 1. Diffuse respiration artifact. 2. Again chronic bony findings and old granulomatous disease. 3. Remaining CT chest without contrast exam is negative. Comment: Preliminary interpretation made by [facility]. No critical discrepancy.
== END 2021-07-23 02:55 | disposition short-term general hospital (02) ==
LOC: ED 14:36
DX: I21.4 Non-ST elevation (NSTEMI) myocardial infarction (principal); I25.2 Old myocardial infarction; I25.10 Atherosclerotic heart disease of native coronary artery without angina pectoris; I10 Essential (primary) hypertension; R50.9 Fever, unspecified; Z79.899 Other long term (current) drug therapy; E11.9 Type 2 diabetes mellitus without complications; Z79.84 Long term (current) use of oral hypoglycemic drugs
CPT/HCPCS: 0241U; 36415; 36600; 70450; 71045; 71250; 80053; 80307; 81001; 82140; 82375; 82803; 82947; 83605; 84484; 85025; 85610; 85730; 87040; 87086; 96365; 96374; 99285; G0480; J0696; J2060; A9270-GY

== ENCOUNTER 2023-10-24 15:49 | Emergency (ER) | payer MEDICARE, OTHER ==
--- NOTE | 2023-10-24 15:52 | ERPHSYRPT ---
- History of Present Illness Source: patient, family, EMS Exam Limitations: no limitations Occurred: just prior to arrival Reason for Fall: unknown Injuries/Pain Location: no injury Loss of Consciousness: no loss of consciousness (No actual fall) Quality: other (Bilateral lower extremity weakness) Severity of Pain-Max: none Modifying Factors: Improves With: nothing Associated Symptoms (Fall): trouble walking (Chronically he uses a walker. However his legs do feel more weak than typical for him) Hx Tetanus, Diphtheria Vaccination/Date Given: Yes Hx Influenza Vaccination/Date Given: Yes Hx Pneumococcal Vaccination/Date Given: Yes <MELISSA IRBY - Last Filed: 10/24/23 19:17> <LALITHA RHODES - Last Filed: 10/24/23 21:29> - History of Present Illness Time Seen by Provider: 10/24/23 15:52 Physician History: This is an 83-year-old white male patient of Dr. Medrano, who was brought into the emergency department by the ambulance service. The call was a fall. However, there was no actual fall. The patient was using a toilet that did not have a seat in it and was embedded down into the bowl and was too weak to actually push himself off of the toilet bowl. Ordinarily, the patient uses a walker to ambulate. He was "stuck" for approximately 3 hours before his son arrived to help him out of the toilet bowl. Patient was brought into the ED by the paramedics. He has no complaints of chest pain he denies shortness of breath. He has no abdominal pain. Patient does have a history of right hip osteoarthritis. He just says his legs feel weak at this time. Patient has a history of CVA in the past, hypertension, gastroesophageal reflux disease, diabetes, hyperlipidemia, dementia, coronary disease (cardiac stents), degenerative disc disease and anxiety. Patient is on Eliquis chronically. (MELISSA IRBY) Allergies/Adverse Reactions: Sulfa (Sulfonamide Antibiotics) Allergy (Severe, Verified 10/24/23 16:19) Iodinated Contrast Media [Iodinated Contrast Media - IV Dye] Allergy (Mild, V erified 10/24/23 16:19) morphine Allergy (Mild, Verified 10/24/23 16:19) ofloxacin Allergy (Mild, Verified 10/24/23 16:19) Home Medications: Amlodipine Besylate 5 mg PO HS 06/27/13 [History] B2/Vits A,C,E/Lut/Zeaxanth/Min [Icaps Tablet] 1 each PO BID 06/27/13 [History] Buspirone HCl [Buspar] 15 mg PO BID 06/27/13 [History] Metformin HCl 500 mg [Glucophage 500 MG] 1,000 mg PO BID 06/27/13 [History] Fesoterodine Fumarate [Toviaz] 8 mg PO DAILY 04/03/18 [History] Isosorbide Mononitrate [Isosorbide Mononitrate ER] 60 mg PO DAILY 04/03/18 [History] Tamsulosin HCl 0.4 mg [Flomax 0.4 MG] 0.4 mg PO DAILY 04/03/18 [History] carvediloL [Coreg] 3.125 mg PO BID 04/03/18 [History] Apixaban [Eliquis] 5 mg PO DAILY 03/30/21 [History] Atorvastatin Calcium 20 mg PO HS 03/30/21 [History] Dapagliflozin Propanediol [Farxiga] 10 mg PO DAILY 10/24/23 [History] Donepezil HCl [Aricept] 5 mg PO DAILY 10/24/23 [History] Ferrous Sulfate 325 mg [Feosol 325 mg] 325 mg PO DAILY 10/24/23 [History] Levocetirizine Dihydrochloride 5 mg PO DAILY 10/24/23 [History] Lisinopril 5 mg [Zestril 5 MG] 5 mg PO DAILY 10/24/23 [History] PANTOPRAZOLE 40 mg Tablet [Protonix 40MG Tablet] 40 mg PO QAM 10/24/23 [History] Quetiapine Fumarate 25 mg [Seroquel 25 MG] 25 mg PO DAILY 10/24/23 [History] Travel Risk - International Travel Have you traveled outside of the country in past 3 weeks: No - Coronavirus Screening Are you exhibiting any of the following symptoms?: No Close contact with a COVID-19 positive Pt in past 14-21 Days: No - Vaccine Status Have you recieved a Covid-19 vaccination: Yes Land Planner: Moderna - Vaccination Dates Date of 2cond Vaccination (if applicable): 01/20/21 <MELISSA IRBY - Last Filed: 10/24/23 19:17> - Review of Systems Constitutional: No Symptoms Eyes: No Symptoms Ears, Nose, & Throat: No Symptoms Respiratory: No Symptoms Cardiac: No Symptoms Abdominal/Gastrointestinal: No Symptoms Genitourinary Symptoms: No Symptoms Musculoskeletal: No Symptoms Skin: No Symptoms Neurological: Other (Neuro lower extremity weakness) Psychological: No Symptoms Endocrine: No Symptoms Hematologic/Lymphatic: No Symptoms Immunological/Allergic: No Symptoms All Other Systems: Reviewed and Negative <MELISSA IRBY - Last Filed: 10/24/23 19:17> - Past Medical History Pertinent Past Medical History: Yes Neurological History: Stroke ENT History: No Pertinent History Cardiac History: Coronary Artery Disease, High Cholesterol, Hypertension, Myocardial Infarction ([place]) Respiratory History: Sleep Apnea, Other Endocrine Medical History: Diabetes Type II Musculoskeletal History: Degenerative Disk Disease, Osteoarthritis GI Medical History: No Pertinent History History: No Pertinent History Psycho-Social History: Anxiety Male Reproductive Disorders: Prostate Problems Other Medical History: CVA 2010. 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 one stent and double hernia, cardiac cath x 5 - Social History Smoking Status: Never smoker Exposure to second hand smoke: No Alcohol Use: None Drug Use: none Patient Lives Alone: Yes Significant Family History: heart disease, diabetes, hypertension <MELISSA IRBY - Last Filed: 10/24/23 19:17> - [place] Coma Score Best Eye Response ([place]): (4) open spontaneously Best Verbal Response ([place]): (5) oriented Best Motor Response ([place]): (6) obeys commands [place] Total: 15 - Physical Exam General Appearance: no apparent distress, alert Head Injury: no evidence of injury Eye Exam: PERRL/EOMI, eyes nml inspection ENT Exam: airway nml, nml ext.inspection, No evidence of ENT injury Neck Exam: supple, trachea midline, full range of motion, normal alignment, normal inspection Respiratory/Chest Exam: normal breath sounds, No chest tenderness, No respiratory distress, No ecchymosis, No crepitus Cardiovascular Exam: normal heart sounds, regular rate/rhythm Gastrointestinal Exam: soft, normal bowel sounds, No tenderness Rectal Exam: not done Back Exam: normal inspection, normal range of motion, No CVA tenderness, No vertebral tenderness Extremity Exam: normal inspection, normal range of motion, capillary refill <3 sec, pelvis stable Neurologic Exam: alert, oriented x 3, cooperative, wrecking supervisor II-XII nml as tested, normal mood/affect, sensation nml Skin Exam: normal color, warm, dry SpO2 Interpretation: normal O2 Delivery: Room Air <MELISSA IRBY - Last Filed: 10/24/23 19:17> - Nursing Vital Signs Nursing Vital Signs: Initial Vital Signs Temperature 99.0 F 10/24/23 15:54 Pulse Rate 76 10/24/23 15:54 Respiratory Rate 28 H 10/24/23 15:54 Blood Pressure 169/78 10/24/23 15:54 O2 Sat by Pulse Oximetry 98 10/24/23 15:54 Pain Scale Pain Intensity 4 - Course Nursing assessment & vital signs reviewed: Yes EKG Interpreted by Me: RATE (75), Sinus Rhythm, NORMAL AXIS, Left Bundle Branch Block, Other (Prolonged AL interval. PVCs present. No acute ischemia on today's twelve-lead EKG.) <MELISSA IRBY - Last Filed: 10/24/23 19:17> - Radiology Exams Chest X-ray Interpretation: Teleradiologist Report (No acute findings) <LALITHA RHODES - Last Filed: 10/24/23 21:29> Ordered Tests: Active Orders 24 hr Category Date Time Status EKG-ER Only STAT Care 10/24/23 16:26 Active IV Insertion STAT Care 10/24/23 16:26 Active Pulse Oximetry (ED) STAT Care 10/24/23 16:26 Active CHEST 1 VIEW (PORTABLE) Stat Exams 10/24/23 20:41 Taken HIP UNI (2V) INCL PEL IF DONE Stat Exams 10/24/23 16:54 Completed CBC W DIFF Stat Lab 10/24/23 16:26 Completed CMP Stat Lab 10/24/23 17:10 Completed CULTURE,URINE Stat Lab 10/24/23 17:24 Received MAGNESIUM Stat Lab 10/24/23 17:10 Completed NT PRO BNPII Stat Lab 10/24/23 17:10 Completed PROTIME WITH INR Stat Lab 10/24/23 17:10 Completed TROPONIN Q4H Lab 10/24/23 17:10 Completed TROPONIN Q4H Lab 10/24/23 19:52 Completed TROPONIN Q4H Lab 10/25/23 00:30 Ordered UA W/RFX UR CULTURE Stat Lab 10/24/23 17:24 Completed Medication Summary Generic Name Dose Route Start Last Admin Trade Name Freq PRN Reason Stop Dose Admin Sodium Chloride 1,000 mls @ 50 mls/hr 10/24/23 16:30 10/24/23 17:21 Sodium Chloride 0.9% 1000 Ml IV 11/23/23 16:29 50 mls/hr .Q20H DAWSON Administration Discontinued Medications Generic Name Dose Route Start Last Admin Trade Name Freq PRN Reason Stop Dose Admin Aspirin 324 mg 10/24/23 20:40 10/24/23 20:55 Aspirin 81 Mg Tab.Chew PO 10/24/23 20:41 324 mg STAT ONE Administration Aspirin Confirm 10/24/23 20:48 Aspirin 81 Mg Tab.Chew Administered 10/24/23 20:49 Dose 324 mg .ROUTE .STK-MED ONE Furosemide 40 mg 10/24/23 19:19 10/24/23 19:27 Furosemide 40 Mg/4 Ml Vial IV 10/24/23 19:20 40 mg STAT ONE Administration Furosemide Confirm 10/24/23 19:23 Furosemide 40 Mg/4 Ml Vial Administered 10/24/23 19:24 Dose 40 mg .ROUTE .STK-MED ONE Lab/Rad Data: Laboratory Result Diagrams 10/24/23 16:26 10/24/23 17:10 Laboratory Results 10/24/23 10/24/23 10/24/23 Range/Units 19:52 18:09 17:24 WBC (4.0-10.5) x10^3/uL RBC (4.1-5.6) x10^6/uL Hgb (12.5-18.0) g/dL Hct (42-50) % MCV (78-100) fL MCH (26-32) pg MCHC (32-36) g/dL RDW (11.5-14.0) % Plt Count (150-450) x10^3/uL MPV (7.5-11.0) fL Gran % (36.0-66.0) % Immature Gran % (Auto) (0.00-0.4) % Nucleat RBC Rel Count (0.00-0.1) % Eos # (Auto) (0-0.5) x10^3/uL Immature Gran # (Auto) (0.00-0.03) x10^3u/L Absolute Lymphs (auto) (1.0-4.6) x10^3/uL Absolute Monos (auto) (0.0-1.3) x10^3/uL Absolute Nucleated RBC (0.00-0.01) x10^3u/L Lymphocytes % (24.0-44.0) % Monocytes % (0.0-12.0) % Eosinophils % (0.00-5.0) % Basophils % (0.0-0.4) % Absolute Granulocytes (1.4-6.9) x10^3/uL Basophils # (0-0.4) x10^3/uL PT (9.4-12.5) SECONDS INR (0.8-3.0) Sodium (137-145) mmol/L Potassium (3.5-5.1) mmol/L Chloride (98-107) mmol/L Carbon Dioxide (22-30) mmol/L Anion Gap (5-15) MEQ/L BUN (9-20) mg/dL Creatinine (0.66-1.25) mg/dL Estimated GFR ML/MIN Glucose (74-106) mg/dL Calcium (8.4-10.2) mg/dL Magnesium (1.6-2.3) mg/dL Total Bilirubin (0.2-1.3) mg/dL AST (17-59) U/L ALT (0-50) U/L Alkaline Phosphatase (38-126) U/L Troponin I 0.046 H* (0.000-0.034) ng/mL NT-Pro-B Natriuret Pep (<300) pg/mL Serum Total Protein (6.3-8.2) g/dL Albumin (3.5-5.0) g/dL Urine Color Yellow (Yellow) Urine Appearance Clear (Clear) Urine pH 6.5 (4.6-8.0) Ur Specific [place] 1.025 (1.005-1.030) Urine Protein 100 A (Negative) Urine Glucose (UA) >=1000 A (Negative) mg/dL Urine Ketones Trace A (Negative) Urine Blood Small A (Negative) Urine Nitrite Negative (Negative) Urine Bilirubin Negative (Negative) Urine Urobilinogen 0.2 (0.2) mg/dL Ur Leukocyte Esterase Negative (Negative) U Hyaline Cast (Auto) NONE SEEN (0-2) /LPF Urine Microscopic RBC 0-2 (0-5) /HPF Urine Microscopic WBC 6-10 A (0-5) /HPF Ur Epithelial Cells None Seen (None Seen) /HPF Urine Bacteria None Seen (None Seen) /HPF Urine Culture Reflexed YES (NO) Influenza Type A Ag POSITIVE A (NEGATIVE) Influenza Type B Ag NEGATIVE (NEGATIVE) RSV (PCR) NEGATIVE (NEGATIVE) SARS-CoV-2 (PCR) NEGATIVE (NEGATIVE) Slides for Path Review 10/24/23 10/24/23 10/24/23 Range/Units 17:10 17:10 17:10 WBC (4.0-10.5) x10^3/uL RBC (4.1-5.6) x10^6/uL Hgb (12.5-18.0) g/dL Hct (42-50) % MCV (78-100) fL MCH (26-32) pg MCHC (32-36) g/dL RDW (11.5-14.0) % Plt Count (150-450) x10^3/uL MPV (7.5-11.0) fL Gran % (36.0-66.0) % Immature Gran % (Auto) (0.00-0.4) % Nucleat RBC Rel Count (0.00-0.1) % Eos # (Auto) (0-0.5) x10^3/uL Immature Gran # (Auto) (0.00-0.03) x10^3u/L Absolute Lymphs (auto) (1.0-4.6) x10^3/uL Absolute Monos (auto) (0.0-1.3) x10^3/uL Absolute Nucleated RBC (0.00-0.01) x10^3u/L Lymphocytes % (24.0-44.0) % Monocytes % (0.0-12.0) % Eosinophils % (0.00-5.0) % Basophils % (0.0-0.4) % Absolute Granulocytes (1.4-6.9) x10^3/uL Basophils # (0-0.4) x10^3/uL PT 11.8 (9.4-12.5) SECONDS INR 1.09 (0.8-3.0) Sodium 134 L (137-145) mmol/L Potassium 5.2 H (3.5-5.1) mmol/L Chloride 104 (98-107) mmol/L Carbon Dioxide 23 (22-30) mmol/L Anion Gap 13.0 (5-15) MEQ/L BUN 29 H (9-20) mg/dL Creatinine 1.36 H (0.66-1.25) mg/dL Estimated GFR 52.0 ML/MIN Glucose 149 H (74-106) mg/dL Calcium 9.3 (8.4-10.2) mg/dL Magnesium 1.8 (1.6-2.3) mg/dL Total Bilirubin 1.90 H (0.2-1.3) mg/dL AST 30 (17-59) U/L ALT 11 (0-50) U/L Alkaline Phosphatase 58 (38-126) U/L Troponin I 0.038 H* (0.000-0.034) ng/mL NT-Pro-B Natriuret Pep 42769 (<300) pg/mL Serum Total Protein 7.3 (6.3-8.2) g/dL Albumin 4.4 (3.5-5.0) g/dL Urine Color (Yellow) Urine Appearance (Clear) Urine pH (4.6-8.0) Ur Specific [place] (1.005-1.030) Urine Protein (Negative) Urine Glucose (UA) (Negative) mg/dL Urine Ketones (Negative) Urine Blood (Negative) Urine Nitrite (Negative) Urine Bilirubin (Negative) Urine Urobilinogen (0.2) mg/dL Ur Leukocyte Esterase (Negative) U Hyaline Cast (Auto) (0-2) /LPF Urine Microscopic RBC (0-5) /HPF Urine Microscopic WBC (0-5) /HPF Ur Epithelial Cells (None Seen) /HPF Urine Bacteria (None Seen) /HPF Urine Culture Reflexed (NO) Influenza Type A Ag (NEGATIVE) Influenza Type B Ag (NEGATIVE) RSV (PCR) (NEGATIVE) SARS-CoV-2 (PCR) (NEGATIVE) Slides for Path Review 10/24/23 Range/Units 16:26 WBC 5.2 (4.0-10.5) x10^3/uL RBC 3.47 L (4.1-5.6) x10^6/uL Hgb 11.0 L (12.5-18.0) g/dL Hct 33.1 L (42-50) % MCV 95.4 (78-100) fL MCH 31.7 (26-32) pg MCHC 33.2 (32-36) g/dL RDW 14.9 H (11.5-14.0) % Plt Count 122 L (150-450) x10^3/uL MPV 9.8 (7.5-11.0) fL Gran % 78.3 H (36.0-66.0) % Immature Gran % (Auto) 0.2 (0.00-0.4) % Nucleat RBC Rel Count 0.0 (0.00-0.1) % Eos # (Auto) 0.01 (0-0.5) x10^3/uL Immature Gran # (Auto) 0.01 (0.00-0.03) x10^3u/L Absolute Lymphs (auto) 0.53 L (1.0-4.6) x10^3/uL Absolute Monos (auto) 0.56 (0.0-1.3) x10^3/uL Absolute Nucleated RBC 0.00 (0.00-0.01) x10^3u/L Lymphocytes % 10.2 L (24.0-44.0) % Monocytes % 10.7 (0.0-12.0) % Eosinophils % 0.2 (0.00-5.0) % Basophils % 0.4 (0.0-0.4) % Absolute Granulocytes 4.09 (1.4-6.9) x10^3/uL Basophils # 0.02 (0-0.4) x10^3/uL PT (9.4-12.5) SECONDS INR (0.8-3.0) Sodium (137-145) mmol/L Potassium (3.5-5.1) mmol/L Chloride (98-107) mmol/L Carbon Dioxide (22-30) mmol/L Anion Gap (5-15) MEQ/L BUN (9-20) mg/dL Creatinine (0.66-1.25) mg/dL Estimated GFR ML/MIN Glucose (74-106) mg/dL Calcium (8.4-10.2) mg/dL Magnesium (1.6-2.3) mg/dL Total Bilirubin (0.2-1.3) mg/dL AST (17-59) U/L ALT (0-50) U/L Alkaline Phosphatase (38-126) U/L Troponin I (0.000-0.034) ng/mL NT-Pro-B Natriuret Pep (<300) pg/mL Serum Total Protein (6.3-8.2) g/dL Albumin (3.5-5.0) g/dL Urine Color (Yellow) Urine Appearance (Clear) Urine pH (4.6-8.0) Ur Specific [place] (1.005-1.030) Urine Protein (Negative) Urine Glucose (UA) (Negative) mg/dL Urine Ketones (Negative) Urine Blood (Negative) Urine Nitrite (Negative) Urine Bilirubin (Negative) Urine Urobilinogen (0.2) mg/dL Ur Leukocyte Esterase (Negative) U Hyaline Cast (Auto) (0-2) /LPF Urine Microscopic RBC (0-5) /HPF Urine Microscopic WBC (0-5) /HPF Ur Epithelial Cells (None Seen) /HPF Urine Bacteria (None Seen) /HPF Urine Culture Reflexed (NO) Influenza Type A Ag (NEGATIVE) Influenza Type B Ag (NEGATIVE) RSV (PCR) (NEGATIVE) SARS-CoV-2 (PCR) (NEGATIVE) Slides for Path Review YES - Progress Progress: improved, pain not gone completely, re-examined Counseled pt/family regarding: lab results, diagnosis, need for follow-up, rad results <MELISSA IRBY - Last Filed: 10/24/23 19:17> <LALITHA RHODES - Last Filed: 10/24/23 21:29> - Progress Progress Note: 10/24/23 18:16 This patient's medical issue is 1 of moderate complexity. The level complex and the workup performed is based on review of the patient's past medical history, review the patient's medication list, review of the drug allergy list, history present illness and physical findings on examination. The workup in this patien t includes CBC, CMP, twelve-lead EKG, troponin level, BNP level, right hip and pelvis x-ray. Viral swabs and urinalysis were also performed. 10/24/23 18:17 The radiologist interpreted the pelvis and right hip x-ray. I reviewed the impression. There are degenerative changes in both hips. There is also degenerative changes in the lower lumbar spine. There is no evidence of any acute fracture, subluxation or dislocations. 10/24/23 19:17 Transfer of care of this patient to Dr. Rhodes at shift change. Patient does have influenza A. He is very slightly elevated troponin level but no chest pain or shortness of breath. He will follow-up on remainder of the testing and make final disposition. (MELISSA IRBY) No heparin administered as patient currently on Eliquis. Aspirin administered 10/24/23 20:[address] Bhardwaj ER physician at [facility] who accepts transfer at 9:18 PM. 83-year-old male presents to our ED for evaluation of generalized weakness. Patient is influenza A positive. 2 troponins obtained. Both troponins appear to be trending upward. In light of these findings we decided to transfer patient to higher level of care. Management discussed with Dr. Bhardwaj ER physician at [facility] who accepts transfer. Plan of care discussed with patient. He agrees to transfer to [facility] for further evaluation and treatment. Portions of this note were created with voice recognition technology. There may be grammatical, spelling, punctuation or sound alike errors Complexity problem addressed is moderate acute complicated No critical care time Complex of data reviewed and analyzed is extensive. Test ordered test reviewed. Results analyzed and correlated clinically with history physical examination. Management discussed with Dr. Bhardwaj ER physician at [facility] who accepts transfer at 9:18 PM Risk of complication and or risk of morbidity/mortality of patient management is high. Patient requires hospitalization/transfer to higher level of care Vital stable. Time spent to transfer patient is approximately 20 minutes. Plan of care established for shared decision making. No social determinants of health present impede follow-up. Portions of this note were created with voice recognition technology. There may be grammatical, spelling, punctuation or sound alike errors 10/24/23 21:21 10/24/23 21:23 (LALITHA RHODES) Medical Desision Making - Independent Historian Additional History obtained from: Outreach Representative/EMT - Diagnostic Testing Diagnostic test were ordered, analyzed, and reviewed by me: Yes Radiological Interpretation: Reviewed by me, Teleradiologist Report - Risk of complications The pt has a high risk of morbidity or mortality based on: Decision regarding hospitilization or escalation of hosp level of care <MELISSA IRBY - Last Filed: 10/24/23 19:17> - Departure Departure Disposition: Observation Critical Care Time: No <MELISSA IRBY - Last Filed: 10/24/23 19:17> - Departure Departure Disposition: Transfer <LALITHA RHODES - Last Filed: 10/24/23 21:29> - Departure Clinical Impression: Weakness, Influenza A H1N1 infection, Elevated brain natriuretic peptide (BNP) level, Elevated troponin, CHF (congestive heart failure) Condition: Stable Referrals: LAURENT MEDRANO MD [Primary Care Provider] - Follow up/PCP as directed Instructions: Heart Failure
[2023-10-24 17:19] LABS: Absolute Neutrophil Ct (ANC) 4.09 x10^3/uL (1.4-6.9); BASOPHIL % 0.4 % (0.0-0.4); Basophil (Absolute #) 0.02 x10^3/uL (0-0.4); Eosinophil % 0.2 % (0.00-5.0); Eosinophil (Absolute #) 0.01 x10^3/uL (0-0.5); Hematocrit 33.1 % (42-50); IMMATURE GRAN # 0.01 x10^3u/L (0.00-0.03); IMMATURE GRAN % 0.2 % (0.00-0.4); Lymphocyte (Absolute #) 0.53 x10^3/uL (1.0-4.6); Lymphocytes % 10.2 % (24.0-44.0); Mean Cell Volume 95.4 fL (78-100); Mean Corpuscular Hemoglobin 31.7 pg (26-32); Mean Corpuscular Hgb Concent. 33.2 g/dL (32-36); Mean Platelet Volume 9.8 fL (7.5-11.0); Monocyte (Absolute #) 0.56 x10^3/uL (0.0-1.3); Monocytes % 10.7 % (0.0-12.0); Neutrophil % 78.3 % (36.0-66.0); Platelet Count 122 x10^3/uL (150-450); Red Blood Count 3.47 x10^6/uL (4.1-5.6); Red Cell Distribution Width 14.9 % (11.5-14.0); White Blood Count 5.2 x10^3/uL (4.0-10.5)
[2023-10-24] MEDS ORDERED: Sodium Chloride 0.9% 1000 ML 1,000 ML ONE (17:19)
[2023-10-24] MEDS: Sodium Chloride 0.9% 1000 ML 1,000 ML IV SCH (17:21)
[2023-10-24 17:33] LABS: INR 1.09 (0.8-3.0); PROTIME 11.8 SECONDS (9.4-12.5)
[2023-10-24 17:36] LABS: ALBUMIN 4.4 g/dL (3.5-5.0); BILIRUBIN,TOTAL 1.9 mg/dL (0.2-1.3); Calcium 9.3 mg/dL (8.4-10.2); Creatinine 1 1.36 mg/dL (0.66-1.25); MAGNESIUM 1.8 mg/dL (1.6-2.3); Potassium 5.2 mmol/L (3.5-5.1); Total Protein 7.3 g/dL (6.3-8.2)
--- NOTE | 2023-10-24 17:41 | XRAY ---
Indication: Right hip/pelvic pain. Comparison: None Portable AP pelvis and 2 view right hip demonstrates osteopenia, mild degenerative change both hips, moderate degenerative changes visualized lower lumbar spine, and moderate scattered vascular calcifications. No other bony, articular, or soft tissue abnormalities.
[2023-10-24 17:52] LABS: Appearance Clear (Clear); Bacteria None Seen /HPF (None Seen); Bilirubin Negative (Negative); Blood Small (Negative); Epithelial Cells None Seen /HPF (None Seen); Glucose, Urine >=1000 mg/dL (Negative); Hyaline Casts NONE SEEN /LPF (0-2); Ketones Trace (Negative); Leukocyte Esterase Negative (Negative); Nitrite Negative (Negative); Ph 6.5 (4.6-8.0); Protein,Urine Dip 100 (Negative); RBC 0-2 /HPF (0-5); Specific Gravity 1.025 (1.005-1.030); Urobilinogen 0.2 mg/dL (0.2)
[2023-10-24 17:57] LABS: ADD URINE CULTURE? YES (NO)
[2023-10-24 18:44] LABS: TROPONIN 0.038 ng/mL (0.000-0.034)
[2023-10-24 18:52] LABS: INFLUENZA B NEGATIVE (NEGATIVE); RESPIRATORY SYNCTIAL VIRUS NEGATIVE (NEGATIVE); SARS-CoV-2 Xpert Express NEGATIVE (NEGATIVE)
[2023-10-24 19:01] LABS: INFLUENZA A POSITIVE (NEGATIVE)
[2023-10-24 19:05] VITALS: O2SAT 94
[2023-10-24] MEDS ORDERED: Lasix 40 MG/4 ML ONE (19:23)
[2023-10-24] MEDS: Lasix 40 MG/4 ML IV ONE (19:27)
[2023-10-24 20:36] LABS: Slide Review 1 YES
[2023-10-24] MEDS ORDERED: BABY ASPIRIN 81 MG CHEW ONE (20:48)
[2023-10-24] MEDS: BABY ASPIRIN 81 MG CHEW PO ONE (20:55)
[2023-10-24 21:04] VITALS: TEMP 99.4
[2023-10-24 22:46] VITALS: BP 181/83; PULSE 83; RESP 18
--- NOTE | 2023-10-25 08:44 | XRAY ---
Indication: Chest pain. Influenza a. Comparison: July 22, 2021 Portable chest inflated and now clear. Heart borderline enlarged. Bony thorax intact again with osteopenia and mild degenerative changes. No new/acute findings.
== END 2023-10-24 22:35 | disposition short-term general hospital (02) ==
LOC: ED 15:49
DX: J10.1 Influenza due to other identified influenza virus with other respiratory manifestations (principal); R53.1 Weakness; R79.89 Other specified abnormal findings of blood chemistry; R77.8 Other specified abnormalities of plasma proteins; I11.0 Hypertensive heart disease with heart failure; I50.9 Heart failure, unspecified; E78.5 Hyperlipidemia, unspecified; E11.9 Type 2 diabetes mellitus without complications; Z79.01 Long term (current) use of anticoagulants; Z79.84 Long term (current) use of oral hypoglycemic drugs; Z79.899 Other long term (current) drug therapy; M16.11 Unilateral primary osteoarthritis, right hip; Z20.828 Contact with and (suspected) exposure to other viral communicable diseases
CPT/HCPCS: 0241U; 36000; 36415; 71045; 73502; 80053; 81001; 83735; 83880; 84484; 85025; 85610; 87086; 93005; 94760; 99285; 87077; 87186; J1940; A9270-GY

== ENCOUNTER 2024-04-05 20:47 | Emergency (ER) | payer MEDICARE, OTHER ==
--- NOTE | 2024-04-05 21:02 | ERPHSYRPT ---
- History of Present Illness Time Seen by Provider: 04/05/24 21:01 Source: patient Exam Limitations: no limitations Physician History: The patient presents with persistent pain across the hip area, which has now extended to both sides. The pain is described as being located further back, rather than in the groin or on the outside of the hips. The patient reports difficulty in movement due to the pain and tightness of the muscles. The left side appears to be more tender than the right. The patient also reports pain in the middle of the back, between the hips. The patient was advised to have a hip replacement eleven years ago, but it was not carried out. The patient denies any pain in the groin area when lifting the leg. The patient has been taking [id number] pain medication, including Tylenol and ibuprofen, in large quantities to manage the pain. The patient reports taking six extra strength Tylenol and three more later in the day, as well as six ibuprofen. The patient has a history of potential back issues, with previous investigations carried out a few years ago. The patient cannot recall if an MRI was performed on the back. The patient's pain is severe enough to prevent them from staying in bed and has led to difficulty getting out of bed. Method of Injury: other (none) Occurred: other (months) Quality: constant, aching, stabbing Severity of Pain-Max: severe Severity of Pain-Current: severe Lower Extremities Pain: hip: bilateral Modifying Factors: Improves With: immobilization. Worsens With: movement Associated Symptoms: none Allergies/Adverse Reactions: Sulfa (Sulfonamide Antibiotics) Allergy (Severe, Verified 04/05/24 21:17) Iodinated Contrast Media [Iodinated Contrast Media - IV Dye] Allergy (Mild, Verified 04/05/24 21:17) morphine Allergy (Mild, Verified 04/05/24 21:17) ofloxacin Allergy (Mild, Verified 04/05/24 21:17) Home Medications: Amlodipine Besylate 5 mg PO HS 06/27/13 [History] B2/Vits A,C,E/Lut/Zeaxanth/Min [Icaps Tablet] 1 each PO BID 06/27/13 [History] Buspirone HCl [Buspar] 15 mg PO BID 06/27/13 [History] Metformin HCl 500 mg [Glucophage 500 MG] 1,000 mg PO BID 06/27/13 [History] Fesoterodine Fumarate [Toviaz] 8 mg PO DAILY 04/03/18 [History] Isosorbide Mononitrate [Isosorbide Mononitrate ER] 60 mg PO DAILY 04/03/18 [History] Tamsulosin HCl 0.4 mg [Flomax 0.4 MG] 0.4 mg PO DAILY 04/03/18 [History] carvediloL [Coreg] 3.125 mg PO BID 04/03/18 [History] Apixaban [Eliquis] 5 mg PO DAILY 03/30/21 [History] Atorvastatin Calcium 20 mg PO HS 03/30/21 [History] Dapagliflozin Propanediol [Farxiga] 10 mg PO DAILY 10/24/23 [History] Donepezil HCl [Aricept] 5 mg PO DAILY 10/24/23 [History] Ferrous Sulfate 325 mg [Feosol 325 mg] 325 mg PO DAILY 10/24/23 [History] Levocetirizine Dihydrochloride 5 mg PO DAILY 10/24/23 [History] Lisinopril 5 mg [Zestril 5 MG] 5 mg PO DAILY 10/24/23 [History] PANTOPRAZOLE 40 mg Tablet [Protonix 40MG Tablet] 40 mg PO QAM 10/24/23 [History] Quetiapine Fumarate 25 mg [Seroquel 25 MG] 25 mg PO DAILY 10/24/23 [History] Hx Tetanus, Diphtheria Vaccination/Date Given: Yes Hx Influenza Vaccination/Date Given: Yes Hx Pneumococcal Vaccination/Date Given: Yes - Review of Systems All Other Systems: Reviewed and Negative - Past Medical History Pertinent Past Medical History: Yes Neurological History: Stroke ENT History: No Pertinent History Cardiac History: Coronary Artery Disease, High Cholesterol, Hypertension, Myocardial Infarction ([place]) Respiratory History: Sleep Apnea, Other Endocrine Medical History: Diabetes Type II Musculoskeletal History: Degenerative Disk Disease, Osteoarthritis GI Medical History: No Pertinent History History: No Pertinent History Psycho-Social History: Anxiety Male Reproductive Disorders: Prostate Problems Other Medical History: CVA 2009. 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 one stent and double hernia, cardiac cath x 5 Significant Family History: heart disease, diabetes, hypertension - Social History Smoking Status: Never smoker Exposure to second hand smoke: No Alcohol Use: None Drug Use: none Patient Lives Alone: Yes - Nursing Vital Signs Nursing Vital Signs: Initial Vital Signs Pulse Rate 79 04/05/24 20:49 Blood Pressure 166/70 04/05/24 20:49 O2 Sat by Pulse Oximetry 96 04/05/24 20:49 Pain Scale Pain Intensity 3 - Physical Exam Comments: Flexibility of spine: limited + midline spine tenderness. Tenderness to palpation on bilateral paraspinal area. ROM: Full extension of the leg at the knee. Full dorsiflexion of the great toe. Full plantar flexion of toe and foot. Sensation on lower extremities: normal. Strength on lower extremities: normal. Pedal pulses: present. DTR. patellar 2+, ankle reflex 2+. Pos straight leg raise test. Hip Exam: bilateral Soft tissue swelling not appreciated. Gait: antalgic. Trochanteric + TTP. Sciatic Notch + TTP. Piriformsi + TPP Anterior hip not TTP. Log Roll: neg. FADERs: +. FABIRs: neg. NVI. - Course Nursing assessment & vital signs reviewed: Yes - CT Exams Lumbar Spine CT Interpretation: Tele-radiologist Report, Other (L3-4 diffuse disc bulge w/o nerve root compression, L4-5 disc osteophyte complex w/ b/l subarticular protrusion causing narrowing of bilateral neural foramina, compressing b/l nerve roots, L5-S1 diffuse disc bulge w/o nerve root compression) Ordered Tests: Active Orders 24 hr Category Date Time Status CULTURE,URINE Stat Lab 04/05/24 23:10 Received UA W/RFX UR CULTURE Stat Lab 04/05/24 23:10 Completed Medication Summary Discontinued Medications Generic Name Dose Route Start Last Admin Trade Name Freq PRN Reason Stop Dose Admin Dexamethasone Sodium Phosphate 10 mg 04/05/24 21:21 04/05/24 21:42 Dexamethasone Sod Phosphate 10 Mg/Ml IV 04/05/24 21:22 10 mg STAT ONE Administration Dexamethasone Sodium Phosphate Confirm 04/05/24 21:28 Dexamethasone Sod Phosphate 10 Mg/Ml Administered 04/05/24 21:29 Dose 10 mg .ROUTE .STK-MED ONE Lab/Rad Data: Laboratory Result Diagrams 04/05/24 21:27 Laboratory Results 04/05/24 04/05/24 Range/Units 23:10 21:27 Sodium 132 L (135-145) mmol/L Potassium 5.1 (3.5-5.1) mmol/L Chloride 101 (98-107) mmol/L Carbon Dioxide 22 (22-30) mmol/L Anion Gap 14.0 (5-15) MEQ/L BUN 35 H (9-20) mg/dL Creatinine 1.67 H (0.66-1.25) mg/dL Estimated GFR 40.6 ML/MIN Glucose 188 H (74-106) mg/dL Calcium 8.9 (8.4-10.2) mg/dL Total Bilirubin 1.20 (0.2-1.3) mg/dL AST 25 (17-59) U/L ALT 15 (0-50) U/L Alkaline Phosphatase 56 (38-126) U/L Creatine Kinase 36 L (55-170) U/L Serum Total Protein 6.7 (6.3-8.2) g/dL Albumin 4.2 (3.5-5.0) g/dL Urine Color Yellow (Yellow) Urine Appearance Clear (Clear) Urine pH 6.0 (4.6-8.0) Ur Specific [place] 1.025 (1.005-1.030) Urine Protein Trace A (Negative) Urine Glucose (UA) >=1000 A (Negative) mg/dL Urine Ketones Negative (Negative) Urine Blood Negative (Negative) Urine Nitrite Negative (Negative) Urine Bilirubin Negative (Negative) Urine Urobilinogen 0.2 (0.2) mg/dL Ur Leukocyte Esterase Trace A (Negative) U Hyaline Cast (Auto) NONE SEEN (0-2) /LPF Urine Microscopic RBC 0-2 (0-5) /HPF Urine Microscopic WBC 3-5 (0-5) /HPF Ur Epithelial Cells None Seen (None Seen) /HPF Urine Bacteria None Seen (None Seen) /HPF Urine Culture Reflexed YES (NO) Acetaminophen 12 (10-30) ug/ml - Progress Progress: improved Progress Note: Pain likely spinal in nature. CT shows diffuse disc bulge and foraminal stenosis fom L3-S1. Patient will need MRI and likley need injections by pain managment. Patient prescribed Flexeril and Tramadol for as needed pain medications. 3g max of Tylenol per day. Counseled pt/family regarding: diagnosis, need for follow-up, rad results Medical Desision Making - Diagnostic Testing Diagnostic test were ordered, analyzed, and reviewed by me: Yes Radiological Interpretation: Interpreted by me, Reviewed by me, Teleradiologist Report - Risk of complications The pt has a mod risk of morbidity or mortality based on: Need for prescription drug management - Departure Departure Disposition: Home Clinical Impression: DDD (degenerative disc disease), Bulging lumbar disc, Foraminal stenosis of lumbar region, Lumbar radiculopathy Condition: Good Critical Care Time: No Referrals: LAURENT MEDRANO MD [Primary Care Provider] - Follow up/PCP as directed TARSHA QUINTANILLA MD [CONSULTING PHYSICIAN] - Follow up/PCP as directed Instructions: Lumbar spinal stenosis Prescriptions: Cyclobenzaprine HCl 5 mg PO TID PRN 10 Days #30 tablet PRN Reason: Muscle Spasms Tramadol HCl 50 mg [Ultram 50 mg] 50 mg PO TID PRN 5 Days #15 tablet PRN Reason: Pain
[2024-04-05 21:16] VITALS: RESP 16; TEMP 97.5
[2024-04-05] MEDS ORDERED: DECADRON 10MG INJ. ONE (21:28)
[2024-04-05] MEDS: DECADRON 10MG INJ. IV ONE (21:42)
[2024-04-05 21:49] LABS: ALBUMIN 4.2 g/dL (3.5-5.0); BILIRUBIN,TOTAL 1.2 mg/dL (0.2-1.3); Calcium 8.9 mg/dL (8.4-10.2); Creatinine 1 1.67 mg/dL (0.66-1.25); EST GLOMERULAR FILTRATION RATE 40.6 ML/MIN; Potassium 5.1 mmol/L (3.5-5.1); Total Protein 6.7 g/dL (6.3-8.2)
--- NOTE | 2024-04-05 22:41 | XRAY ---
CLINICAL HISTORY: pain COMPARISON: - TECHNIQUE: Multiple contiguous axial images were obtained through the lumbar spine without IV contrast. Sagittal and coronal reformatted images were obtained from the axial data. CT scan was performed according to ALARA (as low as reasonably achievable. FINDINGS: There is loss of normal lumbar lordosis. Anterior osteophytes are seen at multiple levels Mild anterolisthesis of L4 over L5 is seen, degenerative in etiology Facetal arthropathy is seen from L2-3 to L5-S1. Lumbar vertebral bodies are maintained in height and alignment. No vertebral destructive changes are seen. T11-T12: Evaluated on sagittal images only. No disc bulge, canal stenosis or neural foraminal narrowing. Subarticular recesses are patented. T12-L1: Evaluated on sagittal images only. No disc bulge, canal stenosis or neural foraminal narrowing. Subarticular recesses are patented. L1-L2: No disc bulge, canal stenosis or neural foraminal narrowing. Subarticular recesses are patented. L2-L3: No disc bulge, canal stenosis or neural foraminal narrowing. Subarticular recesses are patented. L3-L4: Diffuse disc bulge without nerve root compression. L4-L5: Disc osteophytic complex with bilateral subarticular protrusion, causing narrowing of bilateral neural foramina, compressing bilateral traversing L5 and abutting bilateral exiting L4 nerve roots. L5-S1: Diffuse disc bulge without nerve root compression. Paravertebral soft tissues are unremarkable. IMPRESSION: 1. Changes of lumbar spondylosis as described. 2. Mild anterolisthesis of L4 over L5. MRI LS Spine is advised Electronically Signed by: Ameya Cooper MD. (04/05/2024 22:36:23 EDT)
[2024-04-05 23:44] LABS: Appearance Clear (Clear); Bacteria None Seen /HPF (None Seen); Bilirubin Negative (Negative); Blood Negative (Negative); Epithelial Cells None Seen /HPF (None Seen); Glucose, Urine >=1000 mg/dL (Negative); Hyaline Casts NONE SEEN /LPF (0-2); Ketones Negative (Negative); Leukocyte Esterase Trace (Negative); Nitrite Negative (Negative); Protein,Urine Dip Trace (Negative); RBC 0-2 /HPF (0-5); Specific Gravity 1.025 (1.005-1.030); Urobilinogen 0.2 mg/dL (0.2)
[2024-04-05 23:45] LABS: ADD URINE CULTURE? YES (NO)
[2024-04-06 00:02] VITALS: O2SAT 95
[2024-04-06 00:04] VITALS: BP 168/94; PULSE 76
== END 2024-04-06 00:05 | disposition home or self-care (01) ==
LOC: ED 20:47
DX: M51.16 Intervertebral disc disorders with radiculopathy, lumbar region (principal); M48.061 Spinal stenosis, lumbar region without neurogenic claudication; M51.36 Other intervertebral disc degeneration, lumbar region; M25.552 Pain in left hip; M25.551 Pain in right hip; E78.5 Hyperlipidemia, unspecified; I10 Essential (primary) hypertension; E11.9 Type 2 diabetes mellitus without complications; Z79.891 Long term (current) use of opiate analgesic; Z79.84 Long term (current) use of oral hypoglycemic drugs; Z79.01 Long term (current) use of anticoagulants; Z79.899 Other long term (current) drug therapy
CPT/HCPCS: 36000; 36415; 72131; 80053; 80143; 81001; 82550; 87086; 96374; 99284; J1100

== ENCOUNTER 2024-04-30 08:00 | Day surgery (SDC) | payer MEDICARE, OTHER ==
[2024-04-30] MEDS ORDERED: BUPIVACAINE 0.5% VIAL IJ ONE (08:01)
[2024-04-30] MEDS ORDERED: Depo-Medrol 40 MG/ML IM ONE (08:01)
[2024-04-30] MEDS ORDERED: Lactated Ringers 1,000 ML IV ONE (09:26)
[2024-04-30] MEDS ORDERED: DIPRIVAN 200 MG/20 ML IV ONE (09:38)
--- NOTE | 2024-04-30 10:36 | XRAY ---
Indication: Bilateral SI joint injection. Intraoperative fluoroscopy provided for 14 seconds. 5 digital spot images submitted for interpretation demonstrates posterior needle tips projecting over the expected left and right SI joint. Correlate with intraoperative findings/report.
--- NOTE | 2024-04-30 10:55 | XRAY ---
14 seconds of fluoroscopy was used in surgery for a bilateral sacroiliac joint injection.
== END 2024-04-30 09:58 | disposition home or self-care (01) ==
LOC: SDC-PAIN 08:00
PROVIDERS: ATTEND Psychiatry & Neurology Pain Medicine
DX: M46.1 Sacroiliitis, not elsewhere classified (principal); E11.9 Type 2 diabetes mellitus without complications
CPT/HCPCS: 01992; 27096; 72202; 77002; 82947; 99100; G0260; J2704; Q9966

== ENCOUNTER 2024-05-29 07:53 | Day surgery (SDC) | payer MEDICARE, OTHER ==
[2024-05-29] MEDS ORDERED: BUPIVACAINE 0.5% VIAL IJ ONE (07:54)
[2024-05-29] MEDS ORDERED: Depo-Medrol 40 MG/ML IM ONE (07:54)
[2024-05-29] MEDS ORDERED: Lasix 20 MG/2 ML ONE (09:42)
[2024-05-29] MEDS ORDERED: DIPRIVAN 200 MG/20 ML IV ONE (09:43)
[2024-05-29] MEDS ORDERED: Lactated Ringers 1,000 ML IV ONE (10:06)
[2024-05-29] MEDS ORDERED: Hydromorphone 1 mg/ml Injection ONE (10:29)
--- NOTE | 2024-05-29 11:42 | XRAY ---
Indication: Bilateral L4-S1 MBB. Intraoperative fluoroscopy provided for 9 seconds. Single digital spot image submitted for interpretation demonstrates posterior needle tips projecting over the expected left and right L4-S1 nerve roots. Correlate with intraoperative findings/report.
--- NOTE | 2024-05-29 12:22 | XRAY ---
9 seconds of fluoroscopy was used in surgery for a bilateral L4-S1 MBB.
== END 2024-05-29 11:08 | disposition home or self-care (01) ==
LOC: SDC-PAIN 07:53
PROVIDERS: ATTEND Psychiatry & Neurology Pain Medicine
DX: M47.816 Spondylosis without myelopathy or radiculopathy, lumbar region (principal); M47.817 Spondylosis without myelopathy or radiculopathy, lumbosacral region; E11.9 Type 2 diabetes mellitus without complications
CPT/HCPCS: 64493; 64494; 72020; 77002; 82947; J1170; J1940; J2704

== ENCOUNTER 2024-08-06 08:32 | Day surgery (SDC) | payer MEDICARE, OTHER ==
[2024-08-06] MEDS ORDERED: Depo-Medrol 40 MG/ML IM ONE (08:33)
[2024-08-06] MEDS ORDERED: Sodium Chloride 0.9(Preservative Free) 10 ML IJ ONE (08:33)
[2024-08-06] MEDS ORDERED: LIDOCAINE HCL 1% AMPUL 5 ML IJ ONE (08:33)
[2024-08-06] MEDS ORDERED: DIPRIVAN 200 MG/20 ML IV ONE (10:17)
--- NOTE | 2024-08-06 13:03 | XRAY ---
Indication: Lumbar KATH. Intraoperative fluoroscopy provided for 22 seconds. 4 digital spot image submitted for interpretation demonstrates posterior needle tip projecting posterior to lumbosacral junction interspace. Small amount of contrast injected for needle tip placement. Correlate with intraoperative findings/report.
--- NOTE | 2024-08-06 14:47 | XRAY ---
22 seconds of fluoroscopy was used in surgery for a lumbar KATH.
== END 2024-08-06 11:00 | disposition home or self-care (01) ==
LOC: SDC-PAIN 08:32
PROVIDERS: ATTEND Psychiatry & Neurology Pain Medicine
DX: M54.16 Radiculopathy, lumbar region (principal); E11.9 Type 2 diabetes mellitus without complications
CPT/HCPCS: 62323; 72100; 77003; 82947; J2704; Q9966

== ENCOUNTER 2024-09-08 16:58 | Emergency (ER) | payer MEDICARE, OTHER ==
--- NOTE | 2024-09-08 18:13 | ERPHSYRPT ---
- History of Present Illness Source: patient Exam Limitations: no limitations Patient Subjective Stated Complaint: . Triage Nursing Assessment: . Physician History: Patient has bilateral lower extremity edema. It is chronic is just gotten worse over the last 2 or 3 weeks. The family noticed some stasis dermatitis on there and got concerned it was cellulitis. It is not cellulitis. It is bilateral. He has some weeping as well. He is not using any compression stockings. He has not been taking his Lasix the way he is directed to. He has a medical reimbursement specialist who he saw a recently and told him to increase his Lasix. It was about a week ago and he said that all of his labs were fine. They did not make any changes. He has no shortness of breath or chest pain. He does not have any other edema. I think he just has venous insufficiency.This is a chronic problem is just gotten worse over the last week or 2. It could be dietary related as well. He has not been elevating his legs is much as usual and has not been taking his Lasix. Severity: moderate Allergies/Adverse Reactions: Sulfa (Sulfonamide Antibiotics) Allergy (Severe, Verified 09/08/24 17:23) Iodinated Contrast Media [Iodinated Contrast Media - IV Dye] Allergy (Mild, Verified 09/08/24 17:23) morphine Allergy (Mild, Verified 09/08/24 17:23) ofloxacin Allergy (Mild, Verified 09/08/24 17:23) Home Medications: B2/Vits A,C,E/Lut/Zeaxanth/Min [Icaps Tablet] 1 each PO BID 06/27/13 [History] Buspirone HCl [Buspar] 15 mg PO BID 06/27/13 [History] Metformin HCl 500 mg [Glucophage 500 MG] 1,000 mg PO BID 06/27/13 [History] Isosorbide Mononitrate [Isosorbide Mononitrate ER] 60 mg PO DAILY 04/03/18 [History] Tamsulosin HCl 0.4 mg [Flomax 0.4 MG] 0.4 mg PO DAILY 04/03/18 [History] carvediloL [Coreg] 3.125 mg PO BID 04/03/18 [History] Apixaban [Eliquis] 5 mg PO DAILY 03/30/21 [History] Atorvastatin Calcium 20 mg PO HS 03/30/21 [History] Dapagliflozin Propanediol [Farxiga] 10 mg PO DAILY 10/24/23 [History] Donepezil HCl [Aricept] 5 mg PO DAILY 10/24/23 [History] Ferrous Sulfate 325 mg [Feosol 325 mg] 325 mg PO DAILY 10/24/23 [History] Levocetirizine Dihydrochloride 5 mg PO DAILY 10/24/23 [History] Lisinopril 5 mg [Zestril 5 MG] 5 mg PO DAILY 10/24/23 [History] PANTOPRAZOLE 40 mg Tablet [Protonix 40MG Tablet] 40 mg PO QAM 10/24/23 [History] Hx Tetanus, Diphtheria Vaccination/Date Given: No Hx Influenza Vaccination/Date Given: No Hx Pneumococcal Vaccination/Date Given: No Travel Risk - International Travel Have you traveled outside of the country in past 3 weeks: No - Emerging Infectious Disease Are you exhibiting symptoms associated with any current EIDs: No - Review of Systems Constitutional: No Symptoms Eyes: No Symptoms Ears, Nose, & Throat: No Symptoms Respiratory: No Symptoms Cardiac: No Symptoms, Edema Abdominal/Gastrointestinal: No Symptoms Musculoskeletal: No Symptoms - Past Medical History Pertinent Past Medical History: Yes Neurological History: Stroke ENT History: No Pertinent History Cardiac History: Arrhythmia, Hypertension Respiratory History: No Pertinent History Endocrine Medical History: Diabetes Type II Musculoskeletal History: Arthritis GI Medical History: No Pertinent History History: No Pertinent History Psycho-Social History: Anxiety Male Reproductive Disorders: Prostate Problems Other Medical History: B UE NUMBNESS FROM ELBOWS DOWN TO HANDS, RADICULAR PAIN L>R FROM HIP DOWN TO TOE. A-FIB, HERNIA REPAIR, GALL BLADDER REMOVAL, MULTIPLE HEART CATHS WITH CARDIAC STENTS. 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 one stent and double hernia, cardiac cath x 5 Significant Family History: heart disease, diabetes, hypertension - Social History Smoking Status: Never smoker Exposure to second hand smoke: No Alcohol Use: None Drug Use: none Patient Lives Alone: Yes - Social Determinants of Health Will the patient participate in the screening: Yes Do you worry about a steady place to live?: No Do you have any problems with any of the following?: No known problems In the past 12 months,have you had to go without utilities?: No Transportation Issues: No Has anyone in your support network made you feel unsafe?: No Have you or anyone in your house had to go without enough: No - Nursing Vital Signs Nursing Vital Signs: Initial Vital Signs Temperature 97.7 F 09/08/24 17:32 Pulse Rate 85 09/08/24 17:32 Respiratory Rate 22 09/08/24 17:32 Blood Pressure 183/84 09/08/24 17:32 O2 Sat by Pulse Oximetry 98 09/08/24 17:32 Pain Scale Pain Intensity 0 - Physical Exam General Appearance: no apparent distress Respiratory Exam: normal breath sounds, lungs clear, No chest tenderness, No respiratory distress Cardiovascular Exam: regular rate/rhythm, normal heart sounds Extremity Exam: pedal edema (3+ bilaterallyThere is no perfusion deficits) Neurologic Exam: alert, oriented x 3, cooperative Skin Exam: normal color, warm, other (Lesions on bilateral legs consistent with stasis dermatitis) SpO2: 98 - Course Nursing assessment & vital signs reviewed: Yes Ordered Tests: Medication Summary Discontinued Medications Generic Name Dose Route Start Last Admin Trade Name Marleni PRN Reason Stop Dose Admin Furosemide 40 mg 09/08/24 18:06 Furosemide 40 Mg/4 Ml Vial IV 09/08/24 18:07 STAT ONE - Progress Progress Note: I am going to give the patient some Lasix IV 40 mg. Also going to give him her prescription for some compression stockings.. I went to have him follow-up with his primary doctor for referral for further treatment 09/08/24 18:09 Medical Desision Making - Independent Historian Additional History obtained from: Child - Risk of complications Low Risk: Low risk of morbidity from additional dx testing or treatment The pt has a mod risk of morbidity or mortality based on: Need for prescription drug management - Departure Departure Disposition: Home Clinical Impression: Venous insufficiency of both lower extremities, Stasis dermatitis of both legs Condition: Stable Critical Care Time: No Referrals: LAURENT MEDRANO MD [Primary Care Provider] - Follow up/PCP as directed Instructions: Swelling Additional Instructions: Use compression stockings daily, elevate feet is much as possible above the heart if possible, take your Lasix daily, Follow-up with your primary care doctor in the next week or so and return if symptoms worsen
[2024-09-08] MEDS ORDERED: Lasix 40 MG/4 ML ONE (18:20)
[2024-09-08] MEDS: Lasix 40 MG/4 ML IV ONE (18:21)
[2024-09-08 19:55] VITALS: BP 176/81; PULSE 72; RESP 18; TEMP 97.9; O2SAT 97
== END 2024-09-08 19:50 | disposition home or self-care (01) ==
LOC: ED 16:58
DX: I87.2 Venous insufficiency (chronic) (peripheral) (principal); R60.9 Edema, unspecified; Z79.899 Other long term (current) drug therapy
CPT/HCPCS: 96374; 99282; J1940

== ENCOUNTER 2024-10-14 19:25 | Observation (INO) | payer MEDICARE ==
--- NOTE | 2024-10-14 20:30 | ERPHSYRPT ---
- History of Present Illness Time Seen by Provider: 10/14/24 20:30 Source: patient Exam Limitations: no limitations Patient Subjective Stated Complaint: Pt. states, "I am just so weak I couldn't get off the stool. I feel tight in my kidney area like I need to pee but I ca n't. " Pt. was pointing to lower abdomen when referrencing his kidney area. Triage Nursing Assessment: Pt. arrives via ems, A&Ox3, skin P/W/D, Resp even unlabored. Able to move all four extremities without difficulty. Physician History: 84-year-old male presents to our ED via EMS for evaluation of generalized weakness. Patient reports that he lives alone. Patient is normally independent with activities of daily living. Patient states that he has been experiencing progressive weakness over the past day. Patient states he was unable to stand up from his stool. Patient reports a pressure sensation around his abdomen into his back near his kidney area. Patient does not remember the last time he urinated. However patient reports that he may have urinated spontaneously into his depends but is not sure. No trauma no fever no nausea no vomiting no diarrhea no rash. Symptoms are constant. Symptoms are moderate in intensity. No specific worsening or improving factors. Patient voices no other complaints or concerns at this time. Portions of this note were created with voice recognition technology. There may be grammatical, spelling, punctuation or sound alike errors Timing/Duration: today Severity: moderate Modifying Factors: Improves With: nothing Associated Symptoms: other (Abdominal and back pain) Allergies/Adverse Reactions: Sulfa (Sulfonamide Antibiotics) Allergy (Severe, Verified 09/08/24 17:23) Iodinated Contrast Media [Iodinated Contrast Media - IV Dye] Allergy (Mild, Verified 09/08/24 17:23) morphine Allergy (Mild, Verified 09/08/24 17:23) ofloxacin Allergy (Mild, Verified 09/08/24 17:23) Home Medications: B2/Vits A,C,E/Lut/Zeaxanth/Min [Icaps Tablet] 1 each PO BID 06/27/13 [History] Buspirone HCl [Buspar] 15 mg PO BID 06/27/13 [History] Metformin HCl 500 mg [Glucophage 500 MG] 1,000 mg PO BID 06/27/13 [History] Isosorbide Mononitrate [Isosorbide Mononitrate ER] 60 mg PO DAILY 04/03/18 [History] Tamsulosin HCl 0.4 mg [Flomax 0.4 MG] 0.4 mg PO DAILY 04/03/18 [History] carvediloL [Coreg] 3.125 mg PO BID 04/03/18 [History] Apixaban [Eliquis] 5 mg PO DAILY 03/30/21 [History] Atorvastatin Calcium 20 mg PO HS 03/30/21 [History] Dapagliflozin Propanediol [Farxiga] 10 mg PO DAILY 10/24/23 [History] Donepezil HCl [Aricept] 5 mg PO DAILY 10/24/23 [History] Ferrous Sulfate 325 mg [Feosol 325 mg] 325 mg PO DAILY 10/24/23 [History] Levocetirizine Dihydrochloride 5 mg PO DAILY 10/24/23 [History] Lisinopril 5 mg [Zestril 5 MG] 5 mg PO DAILY 10/24/23 [History] PANTOPRAZOLE 40 mg Tablet [Protonix 40MG Tablet] 40 mg PO QAM 10/24/23 [History] Hx Tetanus, Diphtheria Vaccination/Date Given: No Hx Influenza Vaccination/Date Given: Yes Hx Pneumococcal Vaccination/Date Given: Yes Immunizations Up to Date: No Travel Risk - International Travel Have you traveled outside of the country in past 3 weeks: No - Emerging Infectious Disease Are you exhibiting symptoms associated with any current EIDs: No - Review of Systems Constitutional: No Symptoms, No Fever, No Chills Eyes: No Symptoms Ears, Nose, & Throat: No Symptoms Respiratory: No Symptoms, No Cough, No Dyspnea Cardiac: No Symptoms, No Chest Pain, No Edema, No Syncope Abdominal/Gastrointestinal: No Symptoms, No Abdominal Pain, No Nausea, No Vomiting, No Diarrhea Genitourinary Symptoms: No Symptoms, No Dysuria Musculoskeletal: No Symptoms, No Back Pain, No Neck Pain Skin: No Symptoms, No Rash Neurological: No Symptoms, No Dizziness, No Focal Weakness, No Sensory Changes Psychological: No Symptoms Endocrine: No Symptoms Hematologic/Lymphatic: No Symptoms Immunological/Allergic: No Symptoms All Other Systems: Reviewed and Negative - Past Medical History Pertinent Past Medical History: Yes Neurological History: Stroke ENT History: No Pertinent History Cardiac History: Arrhythmia, Hypertension Respiratory History: No Pertinent History Endocrine Medical History: Diabetes Type II Musculoskeletal History: Arthritis GI Medical History: No Pertinent History History: No Pertinent History Psycho-Social History: Anxiety Male Reproductive Disorders: Prostate Problems Other Medical History: B UE NUMBNESS FROM ELBOWS DOWN TO HANDS, RADICULAR PAIN L>R FROM HIP DOWN TO TOE. A-FIB, HERNIA REPAIR, GALL BLADDER REMOVAL, MULTIPLE HEART CATHS WITH CARDIAC STENTS. 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 one stent and double hernia, cardiac cath x 5 Significant Family History: heart disease, diabetes, hypertension - Social History Smoking Status: Never smoker Exposure to second hand smoke: No Alcohol Use: None Drug Use: none Patient Lives Alone: Yes - Social Determinants of Health Will the patient participate in the screening: Declined to provide - Nursing Vital Signs Nursing Vital Signs: Initial Vital Signs Temperature 98.8 F 10/14/24 19:29 Pulse Rate 88 10/14/24 19:29 Respiratory Rate 22 10/14/24 19:29 Blood Pressure 170/73 10/14/24 19:29 O2 Sat by Pulse Oximetry 96 10/14/24 19:29 Pain Scale Pain Intensity 0 - Physical Exam General Appearance: no apparent distress, alert Eye Exam: PERRL/EOMI, eyes nml inspection Ears, Nose, Throat Exam: normal ENT inspection, moist mucous membranes Neck Exam: normal inspection, non-tender, supple, full range of motion Respiratory Exam: normal breath sounds, lungs clear, airway intact, No respiratory distress Cardiovascular Exam: regular rate/rhythm, normal heart sounds, normal peripheral pulses Gastrointestinal/Abdomen Exam: soft, normal bowel sounds, tenderness (Distended abdomen. suprapubic tenderness. + CVA tenderness patient in no acute distress), No mass Back Exam: normal inspection, normal range of motion, No CVA tenderness, No vertebral tenderness Extremity Exam: normal inspection, normal range of motion, pelvis stable Neurologic Exam: alert, oriented x 3, cooperative, normal mood/affect, nml cerebellar function, nml station & gait, sensation nml, No motor deficits Skin Exam: normal color, warm, dry, No rash Lymphatic Exam: No adenopathy SpO2 Interpretation: normal SpO2: 96 O2 Delivery: Room Air - Course Nursing assessment & vital signs reviewed: Yes EKG Interpreted by Me: RATE (89 A-flutter, left bundle branch block are old and were present on previous ekg approximately 1 week ago.), NORMAL AXIS, NORMAL INTERVALS, NORMAL QRS - CT Exams Abdomen/Pelvis CT Interpretation: Tele-radiologist Report (No comps. Small urinary bladder diverticulum mild atherosclerotic disease osteopenia mild to moderate multilevel degenerative spondylosis at 7 mm L4 listhesis. Otherwise negative abdomen pelvis) Ordered Tests: Active Orders 24 hr Category Date Time Status Flow Floor Attendant STAT Care 10/14/24 20:28 Active EKG-ER Only STAT Care 10/14/24 20:27 Active EKG-ER Only STAT Care 10/15/24 09:52 Active IV Insertion STAT Care 10/14/24 20:27 Active POCT Glucose Check STAT Care 10/15/24 07:06 Active Pulse Oximetry (ED) STAT Care 10/14/24 20:27 Active ABDOMEN AND PELVIS W/0 CONTRAS [CT] Stat Exams 10/14/24 20:29 Completed CHEST 1 VIEW (PORTABLE) Stat Exams 10/14/24 21:57 Completed CBC W DIFF Stat Lab 10/14/24 20:40 Completed CMP Stat Lab 10/14/24 20:40 Completed CULTURE,URINE Stat Lab 10/14/24 22:01 Received LIPASE Stat Lab 10/14/24 20:40 Completed Lactic Acid Stat Lab 10/14/24 20:40 Completed MAGNESIUM Stat Lab 10/14/24 20:40 Completed NT PRO BNPII Stat Lab 10/14/24 20:40 Completed POCT GLUCOSE Stat Lab 10/15/24 06:58 Completed TROPONIN Q4H Lab 10/14/24 20:40 Completed TROPONIN Q4H Lab 10/15/24 00:30 Completed TROPONIN Q4H Lab 10/15/24 05:00 Completed TROPONIN Q4H Lab 10/15/24 10:00 Ordered TROPONIN Q4H Lab 10/15/24 14:00 Ordered TROPONIN Q4H Lab 10/15/24 18:00 Ordered TROPONIN Q4H Lab 10/15/24 22:00 Ordered UA W/RFX UR CULTURE Stat Lab 10/14/24 22:01 Completed Medication Summary Discontinued Medications Generic Name Dose Route Start Last Admin Trade Name Marleni PRN Reason Stop Dose Admin Aspirin 324 mg 10/15/24 01:32 10/15/24 01:34 Aspirin 81 Mg Tab.Chew PO 10/15/24 01:33 324 mg STAT ONE Administration Aspirin Confirm 10/15/24 01:34 Aspirin 81 Mg Tab.Chew Administered 10/15/24 01:35 Dose 324 mg .ROUTE .STK-MED ONE Furosemide 20 mg 10/14/24 22:04 10/14/24 23:15 Furosemide 20 Mg/Vial IV 10/14/24 22:05 20 mg ONCE STA Administration Furosemide Confirm 10/14/24 23:14 Furosemide 20 Mg/Vial Administered 10/14/24 23:15 Dose 20 mg .ROUTE .STK-MED ONE Furosemide 20 mg 10/15/24 09:52 10/15/24 10:03 Furosemide 20 Mg/Vial IV 10/15/24 09:53 20 mg DAILY STA Administration Furosemide Confirm 10/15/24 09:57 Furosemide 20 Mg/Vial Administered 10/15/24 09:58 Dose 20 mg .ROUTE .STK-MED ONE Levofloxacin/Dextrose 500 mg in 100 mls @ 100 mls/hr 10/14/24 22:51 10/15/24 00:35 Levofloxacin 500mg/100ml D5w IV 10/14/24 23:50 Infused STAT STA Infusion Levofloxacin/Dextrose Confirm 10/14/24 23:14 Levofloxacin 500mg/100ml D5w Administered 10/14/24 23:15 Dose 500 mg in 100 mls @ ud IV .STK-MED ONE Nitroglycerin 1 gm 10/15/24 01:30 10/15/24 01:33 Nitroglycerin 1 Gm Packet TOP 10/15/24 01:31 1 gm STAT ONE Administration Nitroglycerin Confirm 10/15/24 01:32 Nitroglycerin 1 Gm Packet Administered 10/15/24 01:33 Dose 1 gm .ROUTE .STK-MED ONE Lab/Rad Data: Laboratory Result Diagrams 10/14/24 20:40 10/14/24 20:40 Laboratory Results 10/15/24 10/15/24 10/15/24 Range/Units 06:58 05:00 00:30 WBC (4.23-9.07) x10^3/uL RBC (4.63-6.08) x10^6/uL Hgb (13.7-17.5) g/dL Hct (40.1-51.0) % MCV (79.0-92.2) fL MCH (25.7-32.2) pg MCHC (32.3-36.5) g/dL RDW (11.6-14.4) % Plt Count (163-337) x10^3/uL MPV (9.4-12.4) fL Gran % (34.0-67.9) % Immature Gran % (Auto) (0.001-0.429) % Nucleat RBC Rel Count (0.00-0.2) % Eos # (Auto) (0.04-0.54) x10^3/uL Immature Gran # (Auto) (0.001-0.031) x10^3u/L Absolute Lymphs (auto) (1.32-3.57) x10^3/uL Absolute Monos (auto) (0.30-0.82) x10^3/uL Absolute Nucleated RBC (0.00-0.012) x10^3u/L Lymphocytes % (21.8-53.1) % Monocytes % (5.3-12.2) % Eosinophils % (0.8-7.0) % Basophils % (0.2-1.2) % Absolute Granulocytes (1.78-5.38) x10^3/uL Basophils # (0.01-0.08) x10^3/uL Sodium (135-145) mmol/L Potassium (3.5-5.1) mmol/L Chloride (98-107) mmol/L Carbon Dioxide (22-30) mmol/L Anion Gap (5-15) MEQ/L BUN (9-20) mg/dL Creatinine (0.66-1.25) mg/dL Estimated GFR ML/MIN Glucose (74-106) mg/dL POC Glucometer 115 H (74 to 106) mg/dL Lactic Acid (0.4-2.0) Calcium (8.4-10.2) mg/dL Magnesium (1.6-2.3) mg/dL Total Bilirubin (0.2-1.3) mg/dL AST (17-59) U/L ALT (0-50) U/L Alkaline Phosphatase (38-126) U/L Troponin I 0.079 H* 0.069 H* (0.000-0.033) ng/mL NT-Pro-B Natriuret Pep (<300) pg/mL Serum Total Protein (6.3-8.2) g/dL Albumin (3.5-5.0) g/dL Lipase (23-300) U/L Urine Color (Yellow) Urine Appearance (Clear) Urine pH (4.6-8.0) Ur Specific [place] (1.005-1.030) Urine Protein (Negative) Urine Glucose (UA) (Negative) mg/dL Urine Ketones (Negative) Urine Blood (Negative) Urine Nitrite (Negative) Urine Bilirubin (Negative) Urine Urobilinogen (0.2) mg/dL Ur Leukocyte Esterase (Negative) U Hyaline Cast (Auto) (0-2) /LPF Urine Microscopic RBC (0-5) /HPF Urine Microscopic WBC (0-5) /HPF Ur Epithelial Cells (None Seen) /HPF Urine Bacteria (None Seen) /HPF Urine Culture Reflexed (NO) 10/14/24 10/14/24 10/14/24 Range/Units 22:01 20:40 20:40 WBC (4.23-9.07) x10^3/uL RBC (4.63-6.08) x10^6/uL Hgb (13.7-17.5) g/dL Hct (40.1-51.0) % MCV (79.0-92.2) fL MCH (25.7-32.2) pg MCHC (32.3-36.5) g/dL RDW (11.6-14.4) % Plt Count (163-337) x10^3/uL MPV (9.4-12.4) fL Gran % (34.0-67.9) % Immature Gran % (Auto) (0.001-0.429) % Nucleat RBC Rel Count (0.00-0.2) % Eos # (Auto) (0.04-0.54) x10^3/uL Immature Gran # (Auto) (0.001-0.031) x10^3u/L Absolute Lymphs (auto) (1.32-3.57) x10^3/uL Absolute Monos (auto) (0.30-0.82) x10^3/uL Absolute Nucleated RBC (0.00-0.012) x10^3u/L Lymphocytes % (21.8-53.1) % Monocytes % (5.3-12.2) % Eosinophils % (0.8-7.0) % Basophils % (0.2-1.2) % Absolute Granulocytes (1.78-5.38) x10^3/uL Basophils # (0.01-0.08) x10^3/uL Sodium (135-145) mmol/L Potassium (3.5-5.1) mmol/L Chloride (98-107) mmol/L Carbon Dioxide (22-30) mmol/L Anion Gap (5-15) MEQ/L BUN (9-20) mg/dL Creatinine (0.66-1.25) mg/dL Estimated GFR ML/MIN Glucose (74-106) mg/dL POC Glucometer (74 to 106) mg/dL Lactic Acid (0.4-2.0) Calcium (8.4-10.2) mg/dL Magnesium (1.6-2.3) mg/dL Total Bilirubin (0.2-1.3) mg/dL AST (17-59) U/L ALT (0-50) U/L Alkaline Phosphatase (38-126) U/L Troponin I 0.045 H* (0.000-0.033) ng/mL NT-Pro-B Natriuret Pep 67244 (<300) pg/mL Serum Total Protein (6.3-8.2) g/dL Albumin (3.5-5.0) g/dL Lipase (23-300) U/L Urine Color Red A (Yellow) Urine Appearance Cloudy A (Clear) Urine pH 7.5 (4.6-8.0) Ur Specific [place] 1.020 (1.005-1.030) Urine Protein 100 A (Negative) Urine Glucose (UA) >=1000 A (Negative) mg/dL Urine Ketones Negative (Negative) Urine Blood Moderate A (Negative) Urine Nitrite Negative (Negative) Urine Bilirubin Negative (Negative) Urine Urobilinogen 1.0 A (0.2) mg/dL Ur Leukocyte Esterase Trace A (Negative) U Hyaline Cast (Auto) NONE SEEN (0-2) /LPF Urine Microscopic RBC >100 A (0-5) /HPF Urine Microscopic WBC >100 A (0-5) /HPF Ur Epithelial Cells None Seen (None Seen) /HPF Urine Bacteria Few A (None Seen) /HPF Urine Culture Reflexed ORDERED SEPARATELY (NO) 10/14/24 10/14/24 10/14/24 Range/Units 20:40 20:40 20:40 WBC 9.6 H (4.23-9.07) x10^3/uL RBC 3.50 L (4.63-6.08) x10^6/uL Hgb 11.0 L (13.7-17.5) g/dL Hct 33.4 L (40.1-51.0) % MCV 95.4 H (79.0-92.2) fL MCH 31.4 (25.7-32.2) pg MCHC 32.9 (32.3-36.5) g/dL RDW 14.5 H (11.6-14.4) % Plt Count 116 L (163-337) x10^3/uL MPV 8.9 L (9.4-12.4) fL Gran % 80.8 H (34.0-67.9) % Immature Gran % (Auto) 0.6 H (0.001-0.429) % Nucleat RBC Rel Count 0.0 (0.00-0.2) % Eos # (Auto) 0.02 L (0.04-0.54) x10^3/uL Immature Gran # (Auto) 0.06 H (0.001-0.031) x10^3u/L Absolute Lymphs (auto) 0.78 L (1.32-3.57) x10^3/uL Absolute Monos (auto) 0.98 H (0.30-0.82) x10^3/uL Absolute Nucleated RBC 0.00 (0.00-0.012) x10^3u/L Lymphocytes % 8.1 L (21.8-53.1) % Monocytes % 10.2 (5.3-12.2) % Eosinophils % 0.2 L (0.8-7.0) % Basophils % 0.1 L (0.2-1.2) % Absolute Granulocytes 7.73 H (1.78-5.38) x10^3/uL Basophils # 0.01 (0.01-0.08) x10^3/uL Sodium 133 L (135-145) mmol/L Potassium 4.4 (3.5-5.1) mmol/L Chloride 101 (98-107) mmol/L Carbon Dioxide 22 (22-30) mmol/L Anion Gap 14.5 (5-15) MEQ/L BUN 31 H (9-20) mg/dL Creatinine 1.69 H (0.66-1.25) mg/dL Estimated GFR 39.8 ML/MIN Glucose 187 H (74-106) mg/dL POC Glucometer (74 to 106) mg/dL Lactic Acid 1.5 (0.4-2.0) Calcium 8.6 (8.4-10.2) mg/dL Magnesium 1.7 (1.6-2.3) mg/dL Total Bilirubin 1.80 H (0.2-1.3) mg/dL AST 27 (17-59) U/L ALT 13 (0-50) U/L Alkaline Phosphatase 84 (38-126) U/L Troponin I (0.000-0.033) ng/mL NT-Pro-B Natriuret Pep (<300) pg/mL Serum Total Protein 6.3 (6.3-8.2) g/dL Albumin 4.1 (3.5-5.0) g/dL Lipase 53 (23-300) U/L Urine Color (Yellow) Urine Appearance (Clear) Urine pH (4.6-8.0) Ur Specific [place] (1.005-1.030) Urine Protein (Negative) Urine Glucose (UA) (Negative) mg/dL Urine Ketones (Negative) Urine Blood (Negative) Urine Nitrite (Negative) Urine Bilirubin (Negative) Urine Urobilinogen (0.2) mg/dL Ur Leukocyte Esterase (Negative) U Hyaline Cast (Auto) (0-2) /LPF Urine Microscopic RBC (0-5) /HPF Urine Microscopic WBC (0-5) /HPF Ur Epithelial Cells (None Seen) /HPF Urine Bacteria (None Seen) /HPF Urine Culture Reflexed (NO) - Progress Progress: improved Progress Note: Patient is an 84-year-old male history of diabetes hypertension stroke, cardiac stents presents to our ED for evaluation of generalized weakness and abdominal pain. Physical exam shows mild tenderness to the lower abdomen. Workup reveals an elevated BNP of 13,000. Chest x-ray suggestive of early pulmonary congestion. Patient received 20 mg of Lasix IV. EKG shows a flutter with a left bundle branch block. However compared to the previous EKG this appears to be an old finding. Patient is on Eliquis currently. Patient received aspirin and nitroglycerin paste in our ED. Patient's creatinine increased from 1.45 on September 23 -1.69 today. Patient's troponin is uptrending. Initial troponin was 0.045. Repeat troponin was 0.069. In light of patient's history and the t roponin trend patient will require transfer to higher level of care. We contacted transfer center [facility]. They will return call. Plan of care discussed with patient. He agrees to admission at [facility] for further evaluation and treatment. CT abdomen pelvis negative for acute intra-abdominal pathology. Portions of this note were created with voice recognition technology. There may be grammatical, spelling, punctuation or sound alike errors Complexity of problem addressed is moderate acute complicated. No critical care time. Complex of data reviewed and analyzed is extensive. Test ordered chest reviewed results analyzed and correlated clinically with history and physical exam. Risk of complication and or risk of morbidity/mortality of patient management is high. Patient requires transfer to higher level of care. Vital stable. Time spent to transfer patient approximately 30 minutes. Plan of care established for shared decision making. No social determinants of health present to impede follow-up. Portions of this note were created with voice recognition technology. There may be grammatical, spelling, punctuation or sound alike errors 10/15/24 01:37 Due to uptrending troponin we contacted [facility] for transfer. I discussed the case with Dr. Ragsdale hospitalist who accepts transfer at 4 AM. However they currently do not have a bed available. A bed will be available at approximately noon today. Portions of this note were created with voice recognition technology. There may be grammatical, spelling, punctuation or sound alike errors 10/15/24 04:01 Third troponin obtained. The troponin continues to uptrend. However the rate at which is uptrending is decreasing. Patient reassessed. He has no active chest pain. Repeat EKG unchanged. We will continue to monitor patient 10/15/24 06:25 Patient endorsed to incoming physician Dr. Phelan who will follow troponin and reassess patient until transfer to [facility] for definitive care. Patient reassessed at 10:10 AM. Patient resting comfortably. No chest pain or shortness of breath. 10/15/24 10:10 Counseled pt/family regarding: lab results, diagnosis, rad results - Departure Departure Disposition: Transfer Clinical Impression: UTI (urinary tract infection), CHF (congestive heart failure), Generalized weakness Condition: Stable Critical Care Time: No Referrals: LAURENT MEDRANO MD [Primary Care Provider] - Follow up/PCP as directed Instructions: Heart Failure
[2024-10-14 20:45] LABS: Absolute Neutrophil Ct (ANC) 7.73 x10^3/uL (1.78-5.38); BASOPHIL % 0.1 % (0.2-1.2); Basophil (Absolute #) 0.01 x10^3/uL (0.01-0.08); Eosinophil % 0.2 % (0.8-7.0); Eosinophil (Absolute #) 0.02 x10^3/uL (0.04-0.54); Hematocrit 33.4 % (40.1-51.0); IMMATURE GRAN # 0.06 x10^3u/L (0.001-0.031); IMMATURE GRAN % 0.6 % (0.001-0.429); Lymphocyte (Absolute #) 0.78 x10^3/uL (1.32-3.57); Lymphocytes % 8.1 % (21.8-53.1); Mean Cell Volume 95.4 fL (79.0-92.2); Mean Corpuscular Hemoglobin 31.4 pg (25.7-32.2); Mean Corpuscular Hgb Concent. 32.9 g/dL (32.3-36.5); Mean Platelet Volume 8.9 fL (9.4-12.4); Monocyte (Absolute #) 0.98 x10^3/uL (0.30-0.82); Monocytes % 10.2 % (5.3-12.2); Neutrophil % 80.8 % (34.0-67.9); Platelet Count 116 x10^3/uL (163-337); Red Cell Distribution Width 14.5 % (11.6-14.4); White Blood Count 9.6 x10^3/uL (4.23-9.07)
[2024-10-14 21:06] LABS: ALBUMIN 4.1 g/dL (3.5-5.0); ANION GAP 14.5 MEQ/L (5-15); BILIRUBIN,TOTAL 1.8 mg/dL (0.2-1.3); Calcium 8.6 mg/dL (8.4-10.2); Creatinine 1 1.69 mg/dL (0.66-1.25); EST GLOMERULAR FILTRATION RATE 39.8 ML/MIN; MAGNESIUM 1.7 mg/dL (1.6-2.3); Potassium 4.4 mmol/L (3.5-5.1); Total Protein 6.3 g/dL (6.3-8.2)
[2024-10-14 22:17] LABS: Bacteria Few /HPF (None Seen); Bilirubin Negative (Negative); Blood Moderate (Negative); Epithelial Cells None Seen /HPF (None Seen); Glucose, Urine >=1000 mg/dL (Negative); Hyaline Casts NONE SEEN /LPF (0-2); Ketones Negative (Negative); Leukocyte Esterase Trace (Negative); Nitrite Negative (Negative); Ph 7.5 (4.6-8.0); Protein,Urine Dip 100 (Negative); RBC >100 /HPF (0-5); WBC >100 /HPF (0-5)
[2024-10-14 22:19] LABS: Appearance Cloudy (Clear)
[2024-10-14] MEDS ORDERED: Levofloxacin 500MG/100ML D5W 500 MG/100 ML BAG IV ONE (23:14)
[2024-10-14] MEDS ORDERED: Lasix 20 MG/2 ML ONE (23:14)
[2024-10-14] MEDS: Levofloxacin 500MG/100ML D5W 500 MG/100 ML BAG IV STA (23:15)
[2024-10-14] MEDS: Lasix 20 MG/2 ML IV STA (23:15)
--- NOTE | 2024-10-15 | XRAY ---
CLINICAL HISTORY: sob COMPARISON: None. TECHNIQUE: X-ray chest performed in frontal 1 view. FINDINGS: Mild cardiomegaly. Bilateral perihilar prominent bronchovascular markings. No consolidation, pneumothorax or pleural effusion. Visualized bones are unremarkable. IMPRESSION: 1. Mild cardiomegaly. Mild perihilar pulmonary congestion. 2. No consolidation, pneumothorax or pleural effusion. Electronically Signed by: Vinnie Castro MD. (10/14/2024 23:56:50 EST)
[2024-10-15] MEDS ORDERED: NITRO-BID 2% UD PACKETS ONE (01:32)
[2024-10-15] MEDS: NITRO-BID 2% UD PACKETS TOP ONE (01:33)
[2024-10-15] MEDS: BABY ASPIRIN 81 MG CHEW PO ONE (01:34)
[2024-10-15] MEDS ORDERED: BABY ASPIRIN 81 MG CHEW ONE (01:34)
--- NOTE | 2024-10-15 08:44 | XRAY ---
Indication: Pain and weakness. Multiple contiguous axial images obtained through the abdomen and pelvis without contrast. Comparison: None Lung bases demonstrates minimal scattered fibrosis/scarring. No infiltrate or effusion. Heart borderline enlarged. Noncontrasted stomach and bowel loops appear nonobstructed with normal appendix. Near empty urinary bladder demonstrates 2 cm diverticulum superiorly. Previous cholecystectomy. A few tiny splenic calcified granulomas. No free fluid/air. Remaining liver, pancreas, spleen, adrenal glands, kidneys, ureters, and bladder are unremarkable for noncontrast exam. Mild scattered aortoiliac calcifications without AAA. Osseous structures intact with osteopenia, mild/moderate multilevel thoracolumbar degenerative spondylosis, 7 mm anterolisthesis L4 on L5, and mild degenerative changes both hips. No ventral or inguinal hernias. Impression: Chronic findings including pulmonary fibrosis/scarring, borderline cardiomegaly, urinary bladder diverticulum, arteriosclerotic disease, chronic bony findings, and old granulomatous disease. No acute findings on this noncontrast exam.
[2024-10-15] MEDS ORDERED: Lasix 20 MG/2 ML ONE (09:57)
[2024-10-15] MEDS: Lasix 20 MG/2 ML IV STA (10:03)
--- NOTE | 2024-10-15 17:38 | PCM.HP ---
History of Present Illness - Chief Complaint Chief Complaint: weakness Date: 10/15/24 History of Present Illness: is a 84 year old male with PMHX of KLETSEL DEHE WINT[place], arrhythmia, HTN, Stroke, type II DM, OA, anxiety, prostate problems, and chronic obesity. He presented to our ED via EMS for evaluation of generalized weakness. Patient reports that he lives alone. Patient is normally independent with activities of daily living. Patient states that he has been experiencing progressive weakness over the past day. Patient states he was unable to stand up from his stool. Patient reported a pressure sensation around his abdomen into his back near his kidney area. Patient did remember the last time he urinated. However patient reports that he may have urinated spontaneously into his depends but is not sure. No trauma no fever no nausea no vomiting no diarrhea no rash. Symptoms are constant. Symptoms are moderate in intensity. No specific worsening or improving factors. Patient voices no other complaints or concerns at this time. CXR shows: Mild cardiomegaly. Mild perihilar pulmonary congestion. Abd CT /Pelvis showed: Chronic findings including pulmonary fibrosis/scarring, borderline cardiomegaly, urinary bladder diverticulum, arteriosclerotic disease, chronic bony findings, and old granulomatous disease. No acute findings on this noncontrast exam. He was given IV lasix in he ER and abd pain sxs resolved. Levaquin started for UTI. ASA and nitro paste gave for elevated trops. Pt denies CP. He reports he did have some SOB and BLLE edema but this has now resolved since admission and lasix gave. His skin is peeling on BLLE as he states his edema was bad enough to cause this to happen. He denies any further concerns at this time and reports doing better than when he came in. - Review of Systems Constitutional: Weakness, No Fever, No Chills Eyes: No Symptoms Ears, Nose, & Throat: No Symptoms Respiratory: No Cough, No Short Of Breath Cardiac: No Chest Pain, No Edema, No Syncope Abdominal/Gastrointestinal: No Abdominal Pain, No Nausea, No Vomiting, No Diarrhea Genitourinary Symptoms: No Dysuria Musculoskeletal: No Back Pain, No Neck Pain Skin: Dryness (BLLE), No Rash Neurological: No Dizziness, No Focal Weakness, No Sensory Changes Psychological: No Symptoms Endocrine: No Symptoms Hematologic/Lymphatic: No Symptoms Immunological/Allergic: No Symptoms Medications & Allergies Home Medications: Home Medication List B2/Vits A,C,E/Lut/Zeaxanth/Min [Icaps Tablet] 1 each PO BID 06/27/13 [History Confirmed 10/15/24] Buspirone HCl [Buspar] 15 mg PO BID 06/27/13 [History Confirmed 10/15/24] Metformin HCl 500 mg [Glucophage 500 MG] 1,000 mg PO BID 06/27/13 [History Confirmed 10/15/24] Isosorbide Mononitrate [Isosorbide Mononitrate ER] 60 mg PO DAILY 04/03/18 [History Confirmed 10/15/24] Tamsulosin HCl 0.4 mg [Flomax 0.4 MG] 0.4 mg PO DAILY 04/03/18 [History Confirmed 10/15/24] carvediloL [Coreg] 3.125 mg PO BID 04/03/18 [History Confirmed 10/15/24] Apixaban [Eliquis] 5 mg PO DAILY 03/30/21 [History Confirmed 10/15/24] Atorvastatin Calcium 20 mg PO HS 03/30/21 [History Confirmed 10/15/24] Dapagliflozin Propanediol [Farxiga] 10 mg PO DAILY 10/24/23 [History Confirmed 10/15/24] Donepezil HCl [Aricept] 5 mg PO DAILY 10/24/23 [History Confirmed 10/15/24] Ferrous Sulfate 325 mg [Feosol 325 mg] 325 mg PO DAILY 10/24/23 [History Confirmed 10/15/24] Levocetirizine Dihydrochloride 5 mg PO DAILY 10/24/23 [History Confirmed 10/15/24] Lisinopril 5 mg [Zestril 5 MG] 5 mg PO DAILY 10/24/23 [History Confirmed 10/15/24] PANTOPRAZOLE 40 mg Tablet [Protonix 40MG Tablet] 40 mg PO QAM 10/24/23 [History Confirmed 10/15/24] Cyclobenzaprine HCl 5 mg PO TID PRN 10 Days #30 tablet 04/05/24 [Rx Confirmed 10/15/24] Allergies/Adverse Reactions: Allergies Allergy/AdvReac Type Severity Reaction Status Date / Time Sulfa (Sulfonamide Allergy Severe Verified 10/15/24 17:43 Antibiotics) Iodinated Contrast Media Allergy Mild Verified 10/15/24 17:43 [Iodinated Contrast Media - IV Dye] morphine Allergy Mild Verified 10/15/24 17:43 ofloxacin Allergy Mild Verified 10/15/24 17:43 - Past Medical History Past Medical History: Yes Neurological History: Stroke ENT History: No Pertinent History Cardiac History: Arrhythmia, Hypertension Respiratory History: No Pertinent History Endocrine Medical History: Diabetes Type II Musculoskelatal History: Arthritis GI Medical History: No Pertinent History History: No Pertinent History Pyscho-Social History: Anxiety Male Reproductive Disorders: Prostate Problems Comment: B UE NUMBNESS FROM ELBOWS DOWN TO HANDS, RADICULAR PAIN L>R FROM HIP DOWN TO TOE. A-FIB, HERNIA REPAIR, GALL BLADDER REMOVAL, MULTIPLE HEART CATHS WITH CARDIAC STENTS. 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 one stent and double hernia, cardiac cath x 5 Significant Family History: heart disease, diabetes, hypertension - Social History Smoking Status: Never smoker Exposure to second hand smoke: No Alcohol: None Drug Use: none - Social Determinants of Health Will the patient participate in the screening: Declined to provide Do you worry about a steady place to live?: No In the past 12 months,have you had to go without utilities?: No Have you or anyone in your house had to go without enough: No Transportation Issues: No Has anyone in your support network made you feel unsafe?: No - Physical Exam Vital Signs: Vital Signs - 24 hr Temp Pulse Resp BP BP Pulse Ox 10/15/24 17:00 81 24 150/72 92 L 10/15/24 16:50 79 19 91 L 10/15/24 16:40 80 28 H 94 L 10/15/24 16:33 75 20 93 L 10/15/24 16:00 80 21 141/71 94 L 10/15/24 15:30 77 20 137/64 95 10/15/24 15:00 78 20 147/59 91 L 10/15/24 14:30 75 25 H 133/61 92 L 10/15/24 14:00 82 27 H 147/76 97 10/15/24 13:31 77 18 165/84 10/15/24 13:00 94 H 19 138/66 10/15/24 12:30 81 26 H 146/66 94 L 10/15/24 12:01 79 26 H 128/57 92 L 10/15/24 11:30 78 26 H 123/69 95 10/15/24 11:00 76 20 121/60 95 10/15/24 10:30 80 23 114/59 93 L 10/15/24 10:14 96 10/15/24 10:00 84 23 147/63 94 L 10/15/24 09:30 78 19 145/67 95 10/15/24 09:00 98.6 F 87 23 134/61 94 L 10/15/24 08:30 77 18 140/62 90 L 10/15/24 08:23 87 26 H 134/69 95 10/15/24 08:22 86 21 97 10/15/24 08:20 79 23 94 L 10/15/24 08:10 78 25 H 95 10/15/24 08:03 86 19 96 10/15/24 07:30 78 26 H 122/47 89 L 10/15/24 07:00 81 17 125/85 95 10/15/24 06:31 73 22 146/71 95 10/15/24 06:00 70 22 150/68 95 10/15/24 05:30 71 19 139/79 94 L 10/15/24 05:00 76 21 145/74 95 10/15/24 04:31 80 29 H 149/79 93 L 10/15/24 04:30 83 26 H 94 L 10/15/24 04:24 94 L 10/15/24 04:10 85 22 96 10/15/24 04:00 77 25 H 96 10/15/24 03:50 82 24 94 L 10/15/24 03:40 76 24 93 L 10/15/24 03:30 81 24 92 L 10/15/24 03:20 80 25 H 95 10/15/24 03:10 81 28 H 94 L 10/15/24 03:00 77 24 96 10/15/24 02:50 84 20 96 10/15/24 02:40 80 15 94 L 10/15/24 02:30 79 17 94 L 10/15/24 02:20 80 19 93 L 10/15/24 02:10 81 21 95 10/15/24 02:03 85 27 H 95 10/15/24 01:30 85 26 H 150/65 96 10/15/24 01:01 79 19 131/64 92 L 10/15/24 00:00 84 23 154/77 93 L 10/14/24 23:31 89 24 145/76 90 L 10/14/24 23:00 100 H 27 H 135/73 94 L 10/14/24 22:37 96 10/14/24 22:30 97 H 45 H 154/65 10/14/24 22:01 108 H 24 138/92 10/14/24 21:31 96 H 24 114/73 94 L 10/14/24 21:15 90 28 H 161/50 96 10/14/24 21:14 92 H 4 L 10/14/24 19:29 98.8 F 88 22 170/73 96 General Appearance: no apparent distress, alert, obese Neurologic Exam: alert, oriented x 3, cooperative, normal mood/affect, nml cerebellar function, nml station & gait, sensation nml, motor weakness, No motor deficits Eye Exam: PERRL/EOMI, eyes nml inspection Ears, Nose, Throat Exam: normal ENT inspection, TMs normal, pharynx normal, moist mucous membranes Neck Exam: normal inspection, non-tender, supple, full range of motion Respiratory Exam: normal breath sounds, lungs clear, No respiratory distress Cardiovascular Exam: regular rate/rhythm, normal heart sounds, normal peripheral pulses Gastrointestinal/Abdomen Exam: soft, normal bowel sounds, No tenderness, No mass Back Exam: normal inspection, normal range of motion, No CVA tenderness, No vertebral tenderness Extremity Exam: normal inspection, normal range of motion, pelvis stable Skin Exam: normal color, warm, dry, No rash Lymphatic Exam: No adenopathy Results - Labs Lab/Micro Results: Lab Results-Last 24 Hours 10/14/24 10/14/24 10/14/24 Range/Units 20:40 20:40 20:40 WBC 9.6 H (4.23-9.07) x10^3/uL RBC 3.50 L (4.63-6.08) x10^6/uL Hgb 11.0 L (13.7-17.5) g/dL Hct 33.4 L (40.1-51.0) % MCV 95.4 H (79.0-92.2) fL MCH 31.4 (25.7-32.2) pg MCHC 32.9 (32.3-36.5) g/dL RDW 14.5 H (11.6-14.4) % Plt Count 116 L (163-337) x10^3/uL MPV 8.9 L (9.4-12.4) fL Gran % 80.8 H (34.0-67.9) % Immature Gran % (Auto) 0.6 H (0.001-0.429) % Nucleat RBC Rel Count 0.0 (0.00-0.2) % Eos # (Auto) 0.02 L (0.04-0.54) x10^3/uL Immature Gran # (Auto) 0.06 H (0.001-0.031) x10^3u/L Absolute Lymphs (auto) 0.78 L (1.32-3.57) x10^3/uL Absolute Monos (auto) 0.98 H (0.30-0.82) x10^3/uL Absolute Nucleated RBC 0.00 (0.00-0.012) x10^3u/L Lymphocytes % 8.1 L (21.8-53.1) % Monocytes % 10.2 (5.3-12.2) % Eosinophils % 0.2 L (0.8-7.0) % Basophils % 0.1 L (0.2-1.2) % Absolute Granulocytes 7.73 H (1.78-5.38) x10^3/uL Basophils # 0.01 (0.01-0.08) x10^3/uL Sodium 133 L (135-145) mmol/L Potassium 4.4 (3.5-5.1) mmol/L Chloride 101 (98-107) mmol/L Carbon Dioxide 22 (22-30) mmol/L Anion Gap 14.5 (5-15) MEQ/L BUN 31 H (9-20) mg/dL Creatinine 1.69 H (0.66-1.25) mg/dL Estimated GFR 39.8 ML/MIN Glucose 187 H (74-106) mg/dL POC Glucometer (74 to 106) mg/dL Lactic Acid 1.5 (0.4-2.0) Calcium 8.6 (8.4-10.2) mg/dL Magnesium 1.7 (1.6-2.3) mg/dL Total Bilirubin 1.80 H (0.2-1.3) mg/dL AST 27 (17-59) U/L ALT 13 (0-50) U/L Alkaline Phosphatase 84 (38-126) U/L Troponin I (0.000-0.033) ng/mL NT-Pro-B Natriuret Pep (<300) pg/mL Serum Total Protein 6.3 (6.3-8.2) g/dL Albumin 4.1 (3.5-5.0) g/dL Lipase 53 (23-300) U/L Urine Color (Yellow) Urine Appearance (Clear) Urine pH (4.6-8.0) Ur Specific [place] (1.005-1.030) Urine Protein (Negative) Urine Glucose (UA) (Negative) mg/dL Urine Ketones (Negative) Urine Blood (Negative) Urine Nitrite (Negative) Urine Bilirubin (Negative) Urine Urobilinogen (0.2) mg/dL Ur Leukocyte Esterase (Negative) U Hyaline Cast (Auto) (0-2) /LPF Urine Microscopic RBC (0-5) /HPF Urine Microscopic WBC (0-5) /HPF Ur Epithelial Cells (None Seen) /HPF Urine Bacteria (None Seen) /HPF Urine Culture Reflexed (NO) 10/14/24 10/14/24 10/14/24 Range/Units 20:40 20:40 22:01 WBC (4.23-9.07) x10^3/uL RBC (4.63-6.08) x10^6/uL Hgb (13.7-17.5) g/dL Hct (40.1-51.0) % MCV (79.0-92.2) fL MCH (25.7-32.2) pg MCHC (32.3-36.5) g/dL RDW (11.6-14.4) % Plt Count (163-337) x10^3/uL MPV (9.4-12.4) fL Gran % (34.0-67.9) % Immature Gran % (Auto) (0.001-0.429) % Nucleat RBC Rel Count (0.00-0.2) % Eos # (Auto) (0.04-0.54) x10^3/uL Immature Gran # (Auto) (0.001-0.031) x10^3u/L Absolute Lymphs (auto) (1.32-3.57) x10^3/uL Absolute Monos (auto) (0.30-0.82) x10^3/uL Absolute Nucleated RBC (0.00-0.012) x10^3u/L Lymphocytes % (21.8-53.1) % Monocytes % (5.3-12.2) % Eosinophils % (0.8-7.0) % Basophils % (0.2-1.2) % Absolute Granulocytes (1.78-5.38) x10^3/uL Basophils # (0.01-0.08) x10^3/uL Sodium (135-145) mmol/L Potassium (3.5-5.1) mmol/L Chloride (98-107) mmol/L Carbon Dioxide (22-30) mmol/L Anion Gap (5-15) MEQ/L BUN (9-20) mg/dL Creatinine (0.66-1.25) mg/dL Estimated GFR ML/MIN Glucose (74-106) mg/dL POC Glucometer (74 to 106) mg/dL Lactic Acid (0.4-2.0) Calcium (8.4-10.2) mg/dL Magnesium (1.6-2.3) mg/dL Total Bilirubin (0.2-1.3) mg/dL AST (17-59) U/L ALT (0-50) U/L Alkaline Phosphatase (38-126) U/L Troponin I 0.045 H* (0.000-0.033) ng/mL NT-Pro-B Natriuret Pep 16425 (<300) pg/mL Serum Total Protein (6.3-8.2) g/dL Albumin (3.5-5.0) g/dL Lipase (23-300) U/L Urine Color Red A (Yellow) Urine Appearance Cloudy A (Clear) Urine pH 7.5 (4.6-8.0) Ur Specific [place] 1.020 (1.005-1.030) Urine Protein 100 A (Negative) Urine Glucose (UA) >=1000 A (Negative) mg/dL Urine Ketones Negative (Negative) Urine Blood Moderate A (Negative) Urine Nitrite Negative (Negative) Urine Bilirubin Negative (Negative) Urine Urobilinogen 1.0 A (0.2) mg/dL Ur Leukocyte Esterase Trace A (Negative) U Hyaline Cast (Auto) NONE SEEN (0-2) /LPF Urine Microscopic RBC >100 A (0-5) /HPF Urine Microscopic WBC >100 A (0-5) /HPF Ur Epithelial Cells None Seen (None Seen) /HPF Urine Bacteria Few A (None Seen) /HPF Urine Culture Reflexed ORDERED SEPARATELY (NO) 10/15/24 10/15/24 10/15/24 Range/Units 00:30 05:00 06:58 WBC (4.23-9.07) x10^3/uL RBC (4.63-6.08) x10^6/uL Hgb (13.7-17.5) g/dL Hct (40.1-51.0) % MCV (79.0-92.2) fL MCH (25.7-32.2) pg MCHC (32.3-36.5) g/dL RDW (11.6-14.4) % Plt Count (163-337) x10^3/uL MPV (9.4-12.4) fL Gran % (34.0-67.9) % Immature Gran % (Auto) (0.001-0.429) % Nucleat RBC Rel Count (0.00-0.2) % Eos # (Auto) (0.04-0.54) x10^3/uL Immature Gran # (Auto) (0.001-0.031) x10^3u/L Absolute Lymphs (auto) (1.32-3.57) x10^3/uL Absolute Monos (auto) (0.30-0.82) x10^3/uL Absolute Nucleated RBC (0.00-0.012) x10^3u/L Lymphocytes % (21.8-53.1) % Monocytes % (5.3-12.2) % Eosinophils % (0.8-7.0) % Basophils % (0.2-1.2) % Absolute Granulocytes (1.78-5.38) x10^3/uL Basophils # (0.01-0.08) x10^3/uL Sodium (135-145) mmol/L Potassium (3.5-5.1) mmol/L Chloride (98-107) mmol/L Carbon Dioxide (22-30) mmol/L Anion Gap (5-15) MEQ/L BUN (9-20) mg/dL Creatinine (0.66-1.25) mg/dL Estimated GFR ML/MIN Glucose (74-106) mg/dL POC Glucometer 115 H (74 to 106) mg/dL Lactic Acid (0.4-2.0) Calcium (8.4-10.2) mg/dL Magnesium (1.6-2.3) mg/dL Total Bilirubin (0.2-1.3) mg/dL AST (17-59) U/L ALT (0-50) U/L Alkaline Phosphatase (38-126) U/L Troponin I 0.069 H* 0.079 H* (0.000-0.033) ng/mL NT-Pro-B Natriuret Pep (<300) pg/mL Serum Total Protein (6.3-8.2) g/dL Albumin (3.5-5.0) g/dL Lipase (23-300) U/L Urine Color (Yellow) Urine Appearance (Clear) Urine pH (4.6-8.0) Ur Specific [place] (1.005-1.030) Urine Protein (Negative) Urine Glucose (UA) (Negative) mg/dL Urine Ketones (Negative) Urine Blood (Negative) Urine Nitrite (Negative) Urine Bilirubin (Negative) Urine Urobilinogen (0.2) mg/dL Ur Leukocyte Esterase (Negative) U Hyaline Cast (Auto) (0-2) /LPF Urine Microscopic RBC (0-5) /HPF Urine Microscopic WBC (0-5) /HPF Ur Epithelial Cells (None Seen) /HPF Urine Bacteria (None Seen) /HPF Urine Culture Reflexed (NO) 10/15/24 10/15/24 10/15/24 Range/Units 10:18 12:03 16:00 WBC (4.23-9.07) x10^3/uL RBC (4.63-6.08) x10^6/uL Hgb (13.7-17.5) g/dL Hct (40.1-51.0) % MCV (79.0-92.2) fL MCH (25.7-32.2) pg MCHC (32.3-36.5) g/dL RDW (11.6-14.4) % Plt Count (163-337) x10^3/uL MPV (9.4-12.4) fL Gran % (34.0-67.9) % Immature Gran % (Auto) (0.001-0.429) % Nucleat RBC Rel Count (0.00-0.2) % Eos # (Auto) (0.04-0.54) x10^3/uL Immature Gran # (Auto) (0.001-0.031) x10^3u/L Absolute Lymphs (auto) (1.32-3.57) x10^3/uL Absolute Monos (auto) (0.30-0.82) x10^3/uL Absolute Nucleated RBC (0.00-0.012) x10^3u/L Lymphocytes % (21.8-53.1) % Monocytes % (5.3-12.2) % Eosinophils % (0.8-7.0) % Basophils % (0.2-1.2) % Absolute Granulocytes (1.78-5.38) x10^3/uL Basophils # (0.01-0.08) x10^3/uL Sodium (135-145) mmol/L Potassium (3.5-5.1) mmol/L Chloride (98-107) mmol/L Carbon Dioxide (22-30) mmol/L Anion Gap (5-15) MEQ/L BUN (9-20) mg/dL Creatinine (0.66-1.25) mg/dL Estimated GFR ML/MIN Glucose (74-106) mg/dL POC Glucometer (74 to 106) mg/dL Lactic Acid (0.4-2.0) Calcium (8.4-10.2) mg/dL Magnesium (1.6-2.3) mg/dL Total Bilirubin (0.2-1.3) mg/dL AST (17-59) U/L ALT (0-50) U/L Alkaline Phosphatase (38-126) U/L Troponin I 0.066 H* 0.061 H* 0.054 H* (0.000-0.033) ng/mL NT-Pro-B Natriuret Pep (<300) pg/mL Serum Total Protein (6.3-8.2) g/dL Albumin (3.5-5.0) g/dL Lipase (23-300) U/L Urine Color (Yellow) Urine Appearance (Clear) Urine pH (4.6-8.0) Ur Specific [place] (1.005-1.030) Urine Protein (Negative) Urine Glucose (UA) (Negative) mg/dL Urine Ketones (Negative) Urine Blood (Negative) Urine Nitrite (Negative) Urine Bilirubin (Negative) Urine Urobilinogen (0.2) mg/dL Ur Leukocyte Esterase (Negative) U Hyaline Cast (Auto) (0-2) /LPF Urine Microscopic RBC (0-5) /HPF Urine Microscopic WBC (0-5) /HPF Ur Epithelial Cells (None Seen) /HPF Urine Bacteria (None Seen) /HPF Urine Culture Reflexed (NO) Accuchecks Date 10/15/24 Time 07:06 - Radiology Impressions Radiology Exams & Impressions: Radiology Procedures Category Date Time Status ABDOMEN AND PELVIS W/0 CONTRAS [CT] Stat Exams 10/14/24 20:29 Completed CHEST 1 VIEW (PORTABLE) Stat Exams 10/14/24 21:57 Completed Assessment/Plan (1) CHF (congestive heart failure) Current Visit: Yes Status: Acute Assessment & Plan: - CXR: IMPRESSION: 1. Mild cardiomegaly. Mild perihilar pulmonary congestion. 2. No consolidation, pneumothorax or pleural effusion. - Lasix 20 mg daily IV - Tele - cards consult - Follows Dr. Aldrich @ [facility] in [place], [place] - Continue home meds - BNP [id number] Code(s): I50.9 - HEART FAILURE, UNSPECIFIED (2) Elevated troponin Current Visit: Yes Status: Acute Assessment & Plan: - cardiology consulted. - tele - Nitro paste removed on IP admission - labs reviewed- trops trended down - Likely 2:2 to CHF - EKG Code(s): R79.89 - OTHER SPECIFIED ABNORMAL FINDINGS OF BLOOD CHEMISTRY (3) UTI (urinary tract infection) Current Visit: Yes Status: Acute Assessment & Plan: - Levaquin started in ER- cont. pharmacy to dose for renal dosing - Old urine cultures reviewed - 2:2 CHF and UTI - UC pending Code(s): N39.0 - URINARY TRACT INFECTION, SITE NOT SPECIFIED (4) Generalized weakness Current Visit: Yes Status: Acute Assessment & Plan: - PT eval and treat Code(s): R53.1 - WEAKNESS (5) Abdominal pain Current Visit: Yes Status: Acute Assessment & Plan: -Abd/ Pelvis CT: Impression: Chronic findings including pulmonary fibrosis/scarring, borderline cardiomegaly, urinary bladder diverticulum, arteriosclerotic disease, chronic bony findings, and old granulomatous disease. No acute findings on this noncontrast exam. - resolved IP - CBC, CMP reviewed Code(s): R10.9 - UNSPECIFIED ABDOMINAL PAIN (6) Acute on chronic renal failure Current Visit: Yes Status: Acute Assessment & Plan: - creat 1.69- baseline 1.36 - trend labs - stopped metformin and lisinopril for now Code(s): N17.9 - ACUTE KIDNEY FAILURE, UNSPECIFIED; N18.9 - CHRONIC KIDNEY DISEASE, UNSPECIFIED (7) Type II diabetes mellitus Current Visit: Yes Status: Chronic Qualifiers: Diabetes mellitus half-way insulin use: without half-way use Diabetes mellitus complication status: with kidney complications Diabetes mellitus complication detail: with chronic kidney disease Assessment & Plan: - accuchecks ac/hs - low dose s/s - hold metformin d/t adrian (8) Obesity (BMI 30.0-34.9) Current Visit: Yes Status: Chronic Assessment & Plan: - advised ADA diet and exercise control VTE: eliquis PPI: Protonix Next of KIN: Ralph Garcia- child- [phone] D/C plan: 2-3 days Code status: Full Code(s): E66.811 - OBESITY, CLASS 1
[2024-10-15] MEDS ORDERED: NON-FORMULARY ITEM (Cyclobenzaprine Hcl [Cyclobenzaprine Hcl] 5 MG Tablet) PO PRN (17:55)
[2024-10-15] MEDS ORDERED: PHARMACY RENAL DOSING MC ONE (18:05)
[2024-10-15] MEDS ORDERED: HUMALOG SQ PRN (18:09)
[2024-10-15 18:54] LABS: Hematocrit 32.3 % (40.1-51.0); Hemoglobin 10.5 g/dL (13.7-17.5); Mean Cell Volume 96.1 fL (79.0-92.2); Mean Corpuscular Hemoglobin 31.3 pg (25.7-32.2); Mean Corpuscular Hgb Concent. 32.5 g/dL (32.3-36.5); Mean Platelet Volume 9.3 fL (9.4-12.4); Platelet Count 119 x10^3/uL (163-337); Red Blood Count 3.36 x10^6/uL (4.63-6.08); Red Cell Distribution Width 14.5 % (11.6-14.4); White Blood Count 9.3 x10^3/uL (4.23-9.07)
[2024-10-15] MEDS: ZOCOR 20MG PO SCH (21:12)
[2024-10-15] MEDS: BUSPAR 5 MG PO SCH (21:12)
[2024-10-15] MEDS: Coreg 3.125 MG PO SCH (21:12)
[2024-10-15] MEDS ORDERED: BUSPIRONE HCL 15 MG PO SCH (22:00)
[2024-10-15] MEDS ORDERED: NON-FORMULARY ITEM (Atorvastatin Calcium [Atorvastatin Calcium] 20 MG Tablet) PO SCH (22:00)
[2024-10-15] MEDS ORDERED: Glucophage 500 MG PO SCH (22:00)
[2024-10-15] MEDS ORDERED: Cyclobenzaprine 10 MG PO PRN (23:54)
[2024-10-16] MEDS: [UNRECOGNIZED DRUG - OTHER] PO SCH (03:03)
[2024-10-16 05:16] LABS: Hematocrit 32.3 % (40.1-51.0); Hemoglobin 10.6 g/dL (13.7-17.5); Mean Cell Volume 95.8 fL (79.0-92.2); Mean Corpuscular Hemoglobin 31.5 pg (25.7-32.2); Mean Corpuscular Hgb Concent. 32.8 g/dL (32.3-36.5); Mean Platelet Volume 8.9 fL (9.4-12.4); Platelet Count 118 x10^3/uL (163-337); Red Blood Count 3.37 x10^6/uL (4.63-6.08); Red Cell Distribution Width 14.6 % (11.6-14.4); White Blood Count 7.6 x10^3/uL (4.23-9.07)
--- NOTE | 2024-10-16 05:22 | TM.IN ---
Tele-Medicine Incident Note - Incident Note Tel-Medicine Incident Note: 10/16/24 0520 Patient was noted to have a fall with reported trauma to the head. Laceration noted on the arm but there is head trauma noted. Mental status is at baseline and the patient has no new focal neurological deficit. The patient is noted to be on Eliquis. Will obtain a STAT CT head to rule out occult bleed, and monitor the patient with serial neurological checks. Telemedicine Encounter - Telemedicine Encounter Telemedicine Encounter: "The entirety of this encounter was performed via Telemedicine" This visit was performed using real-time audio and video connection between my location and thepatients locationwith the assistance of a surrogateat the patients location. Written or verbal consent was obtained from the patient/guardian to perform this visit using[facility] technology. Any patient questions regarding the telemedicine interaction were answered.
[2024-10-16 05:30] LABS: ALBUMIN 3.9 g/dL (3.5-5.0); ANION GAP 14.1 MEQ/L (5-15); BILIRUBIN,TOTAL 1.6 mg/dL (0.2-1.3); Calcium 8.5 mg/dL (8.4-10.2); Creatinine 1 2.03 mg/dL (0.66-1.25); EST GLOMERULAR FILTRATION RATE 31.9 ML/MIN; MAGNESIUM 1.8 mg/dL (1.6-2.3); Potassium 4.1 mmol/L (3.5-5.1); Total Protein 6.7 g/dL (6.3-8.2)
--- NOTE | 2024-10-16 07:01 | XRAY ---
CLINICAL HISTORY: fall, hit head, on blood thinner COMPARISON: NONE TECHNIQUE: An axial non-contrast CT scan of the brain was performed from the skull base to the high parietal region. One of the following dose reduction techniques were utilized for this exam: Automated exposure control, adjustment of the mA and/or kV according to patient size, use of iterative reconstruction. FINDINGS: Brain Parenchyma: Diffuse periventricular and deep white matter hypodensity seen suggesting small vessel ischemic vasculopathy-related changes No evidence of acute infarct, hemorrhage, or mass effect. No abnormal areas of hyperattenuation. Ventricular System & Subarachnoid Spaces: Age-related involutional brain changes seen as a dilated ventricular system and prominent CSF spaces No evidence of subarachnoid hemorrhage or extra-axial fluid collections. Cerebellum and Brainstem: Normal size and signal. No masses, lesions, or areas of abnormal signal. Orbits: Normal appearance of the globes, optic nerves, and extraocular muscles. No evidence of orbital masses or abnormal signal. Sinuses: Minimal mucosal thickening of the right maxillary sinus Mastoid Air Cells: Opacified right mastoid air cells and middle ear cavity, advised for clinical correlation and dedicated work-up. Hypopneumatized left mastoid Skull: Normal skull morphology. IMPRESSION: 1. No intra-axial or extra-axial hematoma. 2. No skull fracture was detected. 3. Small vessel ischemic vasculopathy-related changes. 4. Age-related involutional brain changes. Electronically Signed by: Vinnie Castro MD. (10/16/2024 06:56:50 EST)
[2024-10-16] MEDS ORDERED: MEDICATION INTERVENTION MC SCH (07:15)
[2024-10-16] MEDS ORDERED: APRESOLINE 20 MG/ML INJ IV PRN (08:12)
[2024-10-16] MEDS ORDERED: Zestril 5 MG PO SCH (10:00)
[2024-10-16] MEDS ORDERED: NON-FORMULARY ITEM (Dapagliflozin Propanediol [Farxiga] 10 MG Tablet) PO SCH (10:00)
[2024-10-16] MEDS ORDERED: NON-FORMULARY ITEM (Levocetirizine Dihydrochloride [Levocetirizine Dihydrochloride] 5 MG T PO SCH (10:00)
[2024-10-16] MEDS ORDERED: NON-FORMULARY ITEM (Apixaban [Eliquis] 5 MG Tablet) PO SCH (10:00)
[2024-10-16] MEDS ORDERED: NON-FORMULARY ITEM (Donepezil Hcl [Aricept] 5 MG Tablet) PO SCH (10:00)
[2024-10-16] MEDS: Protonix 40MG Tablet PO SCH (10:59)
[2024-10-16] MEDS: Flomax 0.4 MG PO SCH (10:59)
[2024-10-16] MEDS: ELIQUIS 2.5 MG TABLET PO SCH (10:59)
[2024-10-16] MEDS: Ocuvite Tablet PO SCH (11:00)
[2024-10-16] MEDS: CLARITIN 10 MG PO SCH (11:00)
[2024-10-16] MEDS: LEVOFLOXACIN 750MG/150ML D5W 750 MG/150 ML BAG IV SCH (11:00)
[2024-10-16] MEDS: Imdur 60MG PO SCH (11:00)
[2024-10-16] MEDS: Lasix 20 MG/2 ML IV SCH (11:00)
[2024-10-16] MEDS: FEOSOL 325 MG PO SCH (11:00)
[2024-10-16] MEDS: Aricept 10 MG PO SCH (11:02)
--- NOTE | 2024-10-16 11:24 | XRAY ---
Indication: Elevated bilirubin. Cholecystectomy. Two-dimensional right upper quadrant abdominal sonogram performed. Comparison: None Visualized liver is homogeneous in echogenicity. Liver is enlarged measuring 21.2 cm. No free fluid. Gallbladder surgically absent. Common bile duct measures 4.6 mm. No intrahepatic biliary distention. Remaining visualized pancreas and right kidney are sonographically unremarkable. Right kidney measures 10.3 x 5.9 x 4.3 cm. Impression: Hepatomegaly. Cholecystectomy. Remaining right upper quadrant sonogram is negative.
--- NOTE | 2024-10-16 20:20 | PCM.NOTE ---
Date and Time: 10/16/242015 Subjective Assessment: 10/15/24 is a 84 year old male with PMHX of [place], arrhythmia, HTN, Stroke, type II DM, OA, anxiety, prostate problems, and chronic obesity. He presented to our ED via EMS for evaluation of generalized weakness. Patient reports that he lives alone. Patient is normally independent with activities of daily living. Patient states that he has been experiencing progressive weakness over the past day. Patient states he was unable to stand up from his stool. Patient reported a pressure sensation around his abdomen into his back near his kidney area. Patient did remember the last time he urinated. However patient reports that he may have urinated spontaneously into his depends but is not sure . No trauma no fever no nausea no vomiting no diarrhea no rash. Symptoms are constant. Symptoms are moderate in intensity. No specific worsening or improving factors. Patient voices no other complaints or concerns at this time. CXR shows: Mild cardiomegaly. Mild perihilar pulmonary congestion. Abd CT /Pelvis showed: Chronic findings including pulmonary fibrosis/scarring, borderline cardiomegaly, urinary bladder diverticulum, arteriosclerotic disease, chronic bony findings, and old granulomatous disease. No acute findings on this noncontrast exam. He was given IV lasix in he ER and abd pain sxs resolved. Levaquin started for UTI. ASA and nitro paste gave for elevated trops. Pt denies CP. He reports he did have some SOB and BLLE edema but this has now resolved since admission and lasix gave. His skin is peeling on BLLE as he states his edema was bad enough to cause this to happen. He denies any further concerns at this time and reports doing better than when he came in. 10/16/24 Pt resting in bed. He states he hurts all over as he had a fall last night and hit his head. A CT head was completed and no new abnormal findings. He continues to have SHOSHANA that has worsened today. Likely 2:2 Lasix. Cardiology consult pending. Hydralizine PRN added for HTN as some BP meds had to be held d/t SHOSHANA. Continue IV antibiotic for UTI, UC pending. Abd US ordered for elevated bili. He denies CP, SOB, abd. pain, N/V/D. - Review of Systems Constitutional: Malaise, Weakness, No Fever, No Chills Eyes: No Symptoms Ears, Nose, & Throat: No Symptoms Respiratory: No Cough, No Short Of Breath Cardiac: No Chest Pain, No Edema, No Syncope Abdominal/Gastrointestinal: No Abdominal Pain, No Nausea, No Vomiting, No Diarrhea Genitourinary Symptoms: No Dysuria Musculoskeletal: No Back Pain, No Neck Pain Skin: No Rash Neurological: No Dizziness, No Focal Weakness, No Sensory Changes Psychological: No Symptoms Endocrine: No Symptoms Hematologic/Lymphatic: No Symptoms Immunological/Allergic: No Symptoms Objective Exam General Appearance: no apparent distress, alert, obese Neurologic Exam: alert, oriented x 3, cooperative, normal mood/affect, nml cerebellar function, sensation nml, motor weakness, No motor deficits Skin Exam: normal color, warm, dry Wound Assessment: Skin/Wound Assessment Wound/Incision Assessment Start: 10/15/24 18:01 Text: Status: Active Freq: Q6H Protocol: Document 10/16/24 14:00 AR (Rec: 10/16/24 17:19 AR [id number]) Wound/Incision Assessment Other Wound Assessment Shift Assessment Wound Type Pressure Ulcer Wound Stage Stage I General Appearance Open to air,Clean/Dry Eye Exam: PERRL, EOMI, eyes nml inspection Ears, Nose, Throat Exam: normal ENT inspection, pharynx normal, moist mucous membranes Neck Exam: normal inspection, non-tender, supple, full range of motion Respiratory Exam: normal breath sounds, lungs clear, No respiratory distress Cardiovascular Exam: regular rate/rhythm, normal heart sounds Gastrointestinal/Abdomen Exam: soft, distention, No tenderness, No mass Extremity Exam: normal inspection, normal range of motion Back Exam: normal inspection, normal range of motion, No CVA tenderness, No vertebral tenderness Male Genitalia Exam: deferred Rectal Exam: deferred Objective Data Vital Signs: Vital Signs - 24 hr Temp Pulse Resp BP Pulse Ox 10/16/24 19:39 97.7 F 79 18 140/63 97 10/16/24 16:00 97.6 F 74 18 141/63 97 10/16/24 11:49 97.5 F 79 18 150/73 97 10/16/24 08:00 97.3 F 80 19 172/85 96 10/16/24 04:00 145/101 10/16/24 00:00 97.6 F 80 19 144/68 94 L Pain Assessment - Last Documented Pain Intensity 0 Intake and Output: Intake & Output 10/14/24 10/15/24 10/16/24 10/17/24 11:59 11:59 11:59 11:59 Intake Total 100 360 Output Total 300 Balance -200 360 Weight 92 kg 89 kg Lab Results: Lab Results-Last 24 Hours 10/15/24 10/16/24 10/16/24 Range/Units 21:47 04:00 05:19 WBC 7.6 (4.23-9.07) x10^3/uL RBC 3.37 L (4.63-6.08) x10^6/uL Hgb 10.6 L (13.7-17.5) g/dL Hct 32.3 L (40.1-51.0) % MCV 95.8 H (79.0-92.2) fL MCH 31.5 (25.7-32.2) pg MCHC 32.8 (32.3-36.5) g/dL RDW 14.6 H (11.6-14.4) % Plt Count 118 L (163-337) x10^3/uL MPV 8.9 L (9.4-12.4) fL Sodium 135 (135-145) mmol/L Potassium 4.1 (3.5-5.1) mmol/L Chloride 102 (98-107) mmol/L Carbon Dioxide 22 (22-30) mmol/L Anion Gap 14.1 (5-15) MEQ/L BUN 36 H (9-20) mg/dL Creatinine 2.03 H (0.66-1.25) mg/dL Estimated GFR 31.9 ML/MIN Glucose 162 H (74-106) mg/dL POC Glucometer 255 H (74 to 106) mg/dL Calcium 8.5 (8.4-10.2) mg/dL Magnesium 1.8 (1.6-2.3) mg/dL Total Bilirubin 1.60 H (0.2-1.3) mg/dL AST 26 (17-59) U/L ALT 12 (0-50) U/L Alkaline Phosphatase 81 (38-126) U/L Serum Total Protein 6.7 (6.3-8.2) g/dL Albumin 3.9 (3.5-5.0) g/dL Radiology Exams: Radiology Procedures Category Date Time Status ABDOMEN AND PELVIS W/0 CONTRAS [CT] Stat Exams 10/14/24 20:29 Completed CHEST 1 VIEW (PORTABLE) Stat Exams 10/14/24 21:57 Completed HEAD WITHOUT CONTRAST [CT] Stat Exams 10/16/24 05:26 Completed US ABDOMEN LIMITED [ABDOMINAL-LIMITED] [US] Routine Exams 10/16/24 08:14 Completed Multi-Disciplinary Progress Notes: Multi-Disciplinary Progress Notes 10/16/24 13:54 Case Management Note by Savanna Quevedo PATIENT HAS [facility] SOLUTIONS. THEY WERE NOTIFIED PATIENT IS HERE IN OBS. THEY WILL NEED NOTIFIED AT TIME OF DC AT [phone]. THEY WILL NEED FAXED THE DC INSTRUCTIONS, DC MED LIST AND DC SUMMARY TO [phone] Initialized on 10/16/24 13:54 - END OF NOTE 10/16/24 13:52 Case Management Note by Savanna Quevedo PHYSICAL THERAPY RECOMMENDING REHAB STAY S/W DAUGHTER LAINA- SHE REPORTS THEY AGREE- THEY FEEL THAT PATIENT COULD BENEFIT THIS IS HIS SECOND HOSPITAL STAY RECENTLY SHE REPORTS HE HAS BEEN TO [facility] BEFORE AND THAT WOULD BE HER CHOICE IF PATIENT AGREEABLE S/W PATIENT- HE IS AGREEABLE TO SHORT TERM REHAB STAY AFTER DC AT [facility] QIANA DONE, NO LEVEL II REQUIRED. COPIES PLACED ON CHART FULL REFERRAL WITH QIANA FAXED TO [facility] AT THIS TIME Initialized on 10/16/24 13:52 - END OF NOTE Assessment/Plan (1) CHF (congestive heart failure) Current Visit: Yes Status: Acute Code(s): I50.9 - HEART FAILURE, UNSPECIFIED (2) Elevated troponin Current Visit: Yes Status: Acute Code(s): R79.89 - OTHER SPECIFIED ABNORMAL FINDINGS OF BLOOD CHEMISTRY (3) UTI (urinary tract infection) Current Visit: Yes Status: Acute Code(s): N39.0 - URINARY TRACT INFECTION, SITE NOT SPECIFIED (4) Generalized weakness Current Visit: Yes Status: Acute Code(s): R53.1 - WEAKNESS (5) Abdominal pain Current Visit: Yes Status: Acute Code(s): R10.9 - UNSPECIFIED ABDOMINAL PAIN (6) Acute on chronic renal failure Current Visit: Yes Status: Acute Code(s): N17.9 - ACUTE KIDNEY FAILURE, UNSPECIFIED; N18.9 - CHRONIC KIDNEY DISEASE, UNSPECIFIED (7) Type II diabetes mellitus Current Visit: Yes Status: Chronic Qualifiers: Diabetes mellitus facilities maintenance supervisor insulin use: without residential use Diabetes mellitus complication status: with kidney complications Diabetes mellitus complication detail: with chronic kidney disease (8) Obesity (BMI 30.0-34.9) Current Visit: Yes Status: Chronic Assessment & Plan: (1) CHF (congestive heart failure) Current Visit: Yes Status: Acute Assessment & Plan: - CXR: IMPRESSION: 1. Mild cardiomegaly. Mild perihilar pulmonary congestion. 2. No consolidation, pneumothorax or pleural effusion. - Lasix 20 mg daily IV - Tele - cards consult - Follows Dr. Aldrich @ [facility] in [place], [place] - Continue home meds - BNP [id number] 10/16 - CBC, CMP reviewed - Echo tomorrow - cards consult pending - RA 92% Code(s): I50.9 - HEART FAILURE, UNSPECIFIED (2) Elevated troponin Current Visit: Yes Status: Acute Assessment & Plan: - cardiology consulted. - tele - Nitro paste removed on IP admission - labs reviewed- trops trended down - Likely 2:2 to CHF - EKG Code(s): R79.89 - OTHER SPECIFIED ABNORMAL FINDINGS OF BLOOD CHEMISTRY (3) UTI (urinary tract infection) Current Visit: Yes Status: Acute Assessment & Plan: - Levaquin started in ER- cont. pharmacy to dose for renal dosing - Old urine cultures reviewed - 2:2 CHF and UTI - UC pending Code(s): N39.0 - URINARY TRACT INFECTION, SITE NOT SPECIFIED (4) Generalized weakness Current Visit: Yes Status: Acute Assessment & Plan: - PT eval and treat 10/16 - fall last night- CT head for further eval negative for acute concern Code(s): R53.1 - WEAKNESS (5) Abdominal pain Current Visit: Yes Status: Acute Assessment & Plan: -Abd/ Pelvis CT: Impression: Chronic findings including pulmonary fibrosis/scarring, borderline cardiomegaly, urinary bladder diverticulum, arteriosclerotic disease, chronic bony findings, and old granulomatous disease. No acute findings on this noncontrast exam. - resolved IP - CBC, CMP reviewed Code(s): R10.9 - UNSPECIFIED ABDOMINAL PAIN (6) Acute on chronic renal failure Current Visit: Yes Status: Acute Assessment & Plan: - creat 1.69- baseline 1.36 - trend labs - stopped metformin and lisinopril for now 10/16 - Creat 2.03- likely 2:2 lasix - trend Code(s): N17.9 - ACUTE KIDNEY FAILURE, UNSPECIFIED; N18.9 - CHRONIC KIDNEY DISEASE, UNSPECIFIED (7) Type II diabetes mellitus Current Visit: Yes Status: Chronic Qualifiers: Diabetes mellitus residential insulin use: without facilities maintenance supervisor use Diabetes mellitus complication status: with kidney complications Diabetes mellitus complication detail: with chronic kidney disease Assessment & Plan: - accuchecks ac/hs - low dose s/s - hold metformin d/t shoshana (8) Obesity (BMI 30.0-34.9) Current Visit: Yes Status: Chronic Assessment & Plan: - advised ADA diet and exercise control Code(s): E66.811 - OBESITY, CLASS 1 Code(s): E66.811 - OBESITY, CLASS 1 (9) Elevated bilirubin Current Visit: Yes Status: Acute Assessment & Plan: - Bili trending down 1.60 - Pt reports severe Abd. pain prior to admission -US abd: Impression: Hepatomegaly. Cholecystectomy. Remaining right upper quadrant sonogram is negative Code(s): R17 - UNSPECIFIED JAUNDICE (10) HTN (hypertension) Current Visit: Yes Status: Acute Assessment & Plan: - Cont home meds - Hold lisinopril d/t SHOSHANA - Hydralizine PRN VTE: eliquis PPI: Protonix Next of KIN: Ralph Garcia- child- [phone] D/C plan: 2-3 days Code status: Full Code(s): I10 - ESSENTIAL (PRIMARY) HYPERTENSION
[2024-10-16] MEDS: TYLENOL EXTRA STRENGTH 500 MG PO PRN (22:55)
[2024-10-17] MEDS: MELATONIN PO PRN (00:50)
[2024-10-17 04:56] LABS: Hematocrit 30.5 % (40.1-51.0); Hemoglobin 9.8 g/dL (13.7-17.5); Mean Cell Volume 95.9 fL (79.0-92.2); Mean Corpuscular Hemoglobin 30.8 pg (25.7-32.2); Mean Corpuscular Hgb Concent. 32.1 g/dL (32.3-36.5); Mean Platelet Volume 9.1 fL (9.4-12.4); Platelet Count 126 x10^3/uL (163-337); Red Blood Count 3.18 x10^6/uL (4.63-6.08); Red Cell Distribution Width 14.2 % (11.6-14.4); White Blood Count 4.7 x10^3/uL (4.23-9.07)
[2024-10-17 05:15] LABS: ALBUMIN 3.6 g/dL (3.5-5.0); ANION GAP 17.1 MEQ/L (5-15); BILIRUBIN,TOTAL 1.2 mg/dL (0.2-1.3); Calcium 8.4 mg/dL (8.4-10.2); Creatinine 1 1.76 mg/dL (0.66-1.25); EST GLOMERULAR FILTRATION RATE 37.9 ML/MIN; Potassium 3.7 mmol/L (3.5-5.1); Total Protein 6.2 g/dL (6.3-8.2)
--- NOTE | 2024-10-17 13:52 | PCM.NOTE ---
Date and Time: 10/17/24 1345 Subjective Assessment: 10/15/24 is a 84 year old male with PMHX of [place], arrhythmia, HTN, Stroke, type II DM, OA, anxiety, prostate problems, and chronic obesity. He presented to our ED via EMS for evaluation of generalized weakness. Patient reports that he lives alone. Patient is normally independent with activities of daily living. Patient states that he has been experiencing progressive weakness over the past day. Patient states he was unable to stand up from his stool. Patient reported a pressure sensation around his abdomen into his back near his kidney area. Patient did remember the last time he urinated. However patient reports that he may have urinated spontaneously into his depends but is not silvestre e. No trauma no fever no nausea no vomiting no diarrhea no rash. Symptoms are constant. Symptoms are moderate in intensity. No specific worsening or improving factors. Patient voices no other complaints or concerns at this time. CXR shows: Mild cardiomegaly. Mild perihilar pulmonary congestion. Abd CT /Pelvis showed: Chronic findings including pulmonary fibrosis/scarring, borderline cardiomegaly, urinary bladder diverticulum, arteriosclerotic disease, chronic bony findings, and old granulomatous disease. No acute findings on this noncontrast exam. He was given IV lasix in he ER and abd pain sxs resolved. Levaquin started for UTI. ASA and nitro paste gave for elevated trops. Pt denies CP. He reports he did have some SOB and BLLE edema but this has now resolved since admission and lasix gave. His skin is peeling on BLLE as he states his edema was bad enough to cause this to happen. He denies any further concerns at this time and reports doing better than when he came in. 10/16/24 Pt resting in bed. He states he hurts all over as he had a fall last night and hit his head. A CT head was completed and no new abnormal findings. He continues to have SHOSHANA that has worsened today. Likely 2:2 Lasix. Cardiology consult pending. Hydralizine PRN added for HTN as some BP meds had to be held d/t SHOSHANA. Continue IV antibiotic for UTI, UC pending. Abd US ordered for elevated bili. He denies CP, SOB, abd. pain, N/V/D. 10/17/24 Pt resting in the chair. No overnight events. He feels he is stronger today and walked to the bathroom with rollater. UC + for Klebsiella- continue Levaquin. awaiting cards consult for elevated Trops. Abd US negative and Bili normal today. SHOSHANA improving. Echo pending. Pt likely to d/c tomorrow to [facility]. He denies any further concerns at this time. - Review of Systems Constitutional: Weakness, No Fever, No Chills Eyes: No Symptoms Ears, Nose, & Throat: No Symptoms Respiratory: No Cough, No Short Of Breath Cardiac: No Chest Pain, No Edema, No Syncope Abdominal/Gastrointestinal: No Abdominal Pain, No Nausea, No Vomiting, No Diarrhea Genitourinary Symptoms: No Dysuria Musculoskeletal: No Back Pain, No Neck Pain Skin: No Rash Neurological: No Dizziness, No Focal Weakness, No Sensory Changes Psychological: No Symptoms Endocrine: No Symptoms Hematologic/Lymphatic: No Symptoms Immunological/Allergic: No Symptoms Objective Exam General Appearance: no apparent distress, alert, obese Neurologic Exam: alert, oriented x 3, cooperative, normal mood/affect, nml cerebellar function, sensation nml, motor weakness, No motor deficits Skin Exam: normal color, warm, dry Wound Assessment: Skin/Wound Assessment Wound/Incision Assessment Start: 10/15/24 18:01 Text: Status: Active Freq: Q6H Protocol: Document 10/17/24 08:00 RB (Rec: 10/17/24 09:12 RB [id number]) Wound/Incision Assessment Other Wound Assessment Shift Assessment Wound Type Pressure Ulcer Wound Stage Stage I General Appearance Open to air,Clean/Dry Wound Photo Photo Taken No Eye Exam: PERRL, EOMI, eyes nml inspection Ears, Nose, Throat Exam: normal ENT inspection, pharynx normal, moist mucous membranes Neck Exam: normal inspection, non-tender, supple, full range of motion Respiratory Exam: normal breath sounds, lungs clear, No respiratory distress Cardiovascular Exam: regular rate/rhythm, normal heart sounds Gastrointestinal/Abdomen Exam: soft, No tenderness, No mass Extremity Exam: normal inspection, normal range of motion Back Exam: normal inspection, normal range of motion, No CVA tenderness, No vertebral tenderness Male Genitalia Exam: deferred Rectal Exam: deferred Objective Data Vital Signs: Vital Signs - 24 hr Temp Pulse Resp BP Pulse Ox 10/17/24 12:00 97.5 F 53 L 19 138/81 97 10/17/24 08:00 97.3 F 70 19 177/78 98 10/17/24 04:00 97.6 F 65 19 142/66 96 10/16/24 23:59 97.4 F 85 17 149/68 95 10/16/24 19:39 97.7 F 79 18 140/63 97 10/16/24 16:00 97.6 F 74 18 141/63 97 Pain Assessment - Last Documented Pain Intensity 7 Pain Scale Used [facility] Intake and Output: Intake & Output 10/15/24 10/16/24 10/17/24 10/18/24 11:59 11:59 11:59 11:59 Intake Total 100 980 Output Total 300 Balance -200 980 Weight 92 kg 89 kg Lab Results: Lab Results-Last 24 Hours 10/17/24 10/17/24 10/17/24 Range/Units 04:40 04:40 04:40 WBC 4.7 (4.23-9.07) x10^3/uL RBC 3.18 L (4.63-6.08) x10^6/uL Hgb 9.8 L (13.7-17.5) g/dL Hct 30.5 L (40.1-51.0) % MCV 95.9 H (79.0-92.2) fL MCH 30.8 (25.7-32.2) pg MCHC 32.1 L (32.3-36.5) g/dL RDW 14.2 (11.6-14.4) % Plt Count 126 L (163-337) x10^3/uL MPV 9.1 L (9.4-12.4) fL Sodium (135-145) mmol/L Potassium (3.5-5.1) mmol/L Chloride (98-107) mmol/L Carbon Dioxide (22-30) mmol/L Anion Gap (5-15) MEQ/L BUN (9-20) mg/dL Creatinine (0.66-1.25) mg/dL Estimated GFR ML/MIN Glucose (74-106) mg/dL Hemoglobin A1c 7.23 H (4.5-6.0) % Calcium (8.4-10.2) mg/dL Total Bilirubin (0.2-1.3) mg/dL AST (17-59) U/L ALT (0-50) U/L Alkaline Phosphatase (38-126) U/L Serum Total Protein (6.3-8.2) g/dL Albumin (3.5-5.0) g/dL Prealbumin 12.69 L (17.6-36.0) mg/dL 10/17/24 Range/Units 04:45 WBC (4.23-9.07) x10^3/uL RBC (4.63-6.08) x10^6/uL Hgb (13.7-17.5) g/dL Hct (40.1-51.0) % MCV (79.0-92.2) fL MCH (25.7-32.2) pg MCHC (32.3-36.5) g/dL RDW (11.6-14.4) % Plt Count (163-337) x10^3/uL MPV (9.4-12.4) fL Sodium 132 L (135-145) mmol/L Potassium 3.7 (3.5-5.1) mmol/L Chloride 100 (98-107) mmol/L Carbon Dioxide 18 L (22-30) mmol/L Anion Gap 17.1 H (5-15) MEQ/L BUN 47 H (9-20) mg/dL Creatinine 1.76 H (0.66-1.25) mg/dL Estimated GFR 37.9 ML/MIN Glucose 186 H (74-106) mg/dL Hemoglobin A1c (4.5-6.0) % Calcium 8.4 (8.4-10.2) mg/dL Total Bilirubin 1.20 (0.2-1.3) mg/dL AST 25 (17-59) U/L ALT 12 (0-50) U/L Alkaline Phosphatase 72 (38-126) U/L Serum Total Protein 6.2 L (6.3-8.2) g/dL Albumin 3.6 (3.5-5.0) g/dL Prealbumin (17.6-36.0) mg/dL Radiology Exams: Radiology Procedures Category Date Time Status ECHO W/2D AND DOPPLER [US] Routine Exams 10/17/24 11:17 Ordered HEAD WITHOUT CONTRAST [CT] Stat Exams 10/16/24 05:26 Completed US ABDOMEN LIMITED [ABDOMINAL-LIMITED] [US] Routine Exams 10/16/24 08:14 Completed Multi-Disciplinary Progress Notes: Multi-Disciplinary Progress Notes 10/17/24 13:01 Case Management Note by Savanna Quevedo S/W [facility] AT [facility]- THEY HAVE ACCEPTED AND AUTH WAS STARTED 10/16/24 THEY WILL CONTACT US WHEN AUTH IS APPROVED. S/W PATIENT- HE CONTINUES TO PLAN TO TRANSITION TO [facility] FOR SHORT TERM REHAB STAY AT TIME OF DC. DAUGHTER LAINA UPDATED IF PATIENT DISCHARGES OVER THE WEEKEND- FAMILY WILL NEED TO PROVIDE TRANSPORT. CALLED AGAIN TO NOTIFY LAINA- NO ANSWER AT THIS TIME Initialized on 10/17/24 13:01 - END OF NOTE 10/16/24 13:54 Case Management Note by Savanna Quevedo PATIENT HAS [facility] SOLUTIONS. THEY WERE NOTIFIED PATIENT IS HERE IN OBS. THEY WILL NEED NOTIFIED AT TIME OF DC AT [phone]. THEY WILL NEED FAXED THE DC INSTRUCTIONS, DC MED LIST AND DC SUMMARY TO [phone] Initialized on 10/16/24 13:54 - END OF NOTE 10/16/24 13:52 Case Management Note by Savanna Quevedo PHYSICAL THERAPY RECOMMENDING REHAB STAY S/W DAUGHTER LAINA- SHE REPORTS THEY AGREE- THEY FEEL THAT PATIENT COULD BENEFIT THIS IS HIS SECOND HOSPITAL STAY RECENTLY SHE REPORTS HE HAS BEEN TO [facility] BEFORE AND THAT WOULD BE HER CHOICE IF PATIENT AGREEABLE S/W PATIENT- HE IS AGREEABLE TO SHORT TERM REHAB STAY AFTER DC AT [facility] QIANA DONE, NO LEVEL II REQUIRED. COPIES PLACED ON CHART FULL REFERRAL WITH QIANA FAXED TO [facility] AT THIS TIME Initialized on 10/16/24 13:52 - END OF NOTE Assessment/Plan (1) CHF (congestive heart failure) Current Visit: Yes Status: Acute Code(s): I50.9 - HEART FAILURE, UNSPECIFIED (2) Elevated troponin Current Visit: Yes Status: Acute Code(s): R79.89 - OTHER SPECIFIED ABNORMAL FINDINGS OF BLOOD CHEMISTRY (3) UTI (urinary tract infection) Current Visit: Yes Status: Acute Code(s): N39.0 - URINARY TRACT INFECTION, SITE NOT SPECIFIED (4) Generalized weakness Current Visit: Yes Status: Acute Code(s): R53.1 - WEAKNESS (5) Abdominal pain Current Visit: Yes Status: Acute Code(s): R10.9 - UNSPECIFIED ABDOMINAL PAIN (6) Acute on chronic renal failure Current Visit: Yes Status: Acute Code(s): N17.9 - ACUTE KIDNEY FAILURE, UNSPECIFIED; N18.9 - CHRONIC KIDNEY DISEASE, UNSPECIFIED (7) Type II diabetes mellitus Current Visit: Yes Status: Chronic Qualifiers: Diabetes mellitus terminal make up operator insulin use: without mcc use Diabetes mellitus complication status: with kidney complications Diabetes mellitus complication detail: with chronic kidney disease (8) Obesity (BMI 30.0-34.9) Current Visit: Yes Status: Chronic Code(s): E66.811 - OBESITY, CLASS 1 (9) Elevated bilirubin Current Visit: Yes Status: Acute Code(s): R17 - UNSPECIFIED JAUNDICE (10) HTN (hypertension) Current Visit: Yes Status: Acute Assessment & Plan: (1) CHF (congestive heart failure) Current Visit: Yes Status: Acute Assessment & Plan: - CXR: IMPRESSION: 1. Mild cardiomegaly. Mild perihilar pulmonary congestion. 2. No consolidation, pneumothorax or pleural effusion. - Lasix 20 mg daily IV - Tele - cards consult - Follows Dr. Aldrich @ [facility] in [place], [place] - Continue home meds - BNP 46745 10/16 - CBC, CMP reviewed - Echo tomorrow - cards consult pending - RA 92% 10/17 - CBC, CMP reviewed - Echo - cards consult pending Code(s): I50.9 - HEART FAILURE, UNSPECIFIED (2) Elevated troponin Current Visit: Yes Status: Acute Assessment & Plan: - cardiology consulted. - tele - Nitro paste removed on IP admission - labs reviewed- trops trended down - Likely 2:2 to CHF - EKG - Follows Dr. Aldrich cardiology - [facility] Code(s): R79.89 - OTHER SPECIFIED ABNORMAL FINDINGS OF BLOOD CHEMISTRY (3) UTI (urinary tract infection) Current Visit: Yes Status: Acute Assessment & Plan: - Levaquin started in ER- cont. pharmacy to dose for renal dosing - Old urine cultures reviewed - 2:2 CHF and UTI 10/17 - UC Klebsiella- cont. Levaquin Code(s): N39.0 - URINARY TRACT INFECTION, SITE NOT SPECIFIED (4) Generalized weakness Current Visit: Yes Status: Acute Assessment & Plan: - PT eval and treat 10/16 - fall last night- CT head for further eval negative for acute concern Code(s): R53.1 - WEAKNESS (5) Abdominal pain Current Visit: Yes Status: Acute Assessment & Plan: -Abd/ Pelvis CT: Impression: Chronic findings including pulmonary fibrosis/scarring, borderline cardiomegaly, urinary bladder diverticulum, arteriosclerotic disease, chronic bony findings, and old granulomatous disease. No acute findings on this noncontrast exam. - resolved IP - CBC, CMP reviewed Code(s): R10.9 - UNSPECIFIED ABDOMINAL PAIN (6) Acute on chronic renal failure Current Visit: Yes Status: Acute Assessment & Plan: - creat 1.69- baseline 1.36 - trend labs - stopped metformin and lisinopril for now 10/16 - Creat 2.03- likely 2:2 lasix - trend 10/17 - Creat 1.76- improved Code(s): N17.9 - ACUTE KIDNEY FAILURE, UNSPECIFIED; N18.9 - CHRONIC KIDNEY DISEASE, UNSPECIFIED (7) Type II diabetes mellitus Current Visit: Yes Status: Chronic Qualifiers: Diabetes mellitus mcc insulin use: without mcc use Diabetes mellitus complication status: with kidney complications Diabetes mellitus complication detail: with chronic kidney disease Assessment & Plan: - accuchecks ac/hs - low dose s/s - hold metformin d/t shoshana (8) Obesity (BMI 30.0-34.9) Current Visit: Yes Status: Chronic Assessment & Plan: - advised ADA diet and exercise control Code(s): E66.811 - OBESITY, CLASS 1 (9) Elevated bilirubin Current Visit: Yes Status: Acute Assessment & Plan: - Bili trending down 1.60 - Pt reports severe Abd. pain prior to admission -US abd: Impression: Hepatomegaly. Cholecystectomy. Remaining right upper quadrant sonogram is negative 10/17 - resolved Code(s): R17 - UNSPECIFIED JAUNDICE (10) HTN (hypertension) Current Visit: Yes Status: Acute Assessment & Plan: - Cont home meds - Hold lisinopril d/t SHOSHANA - Hydralizine PRN VTE: eliquis PPI: Protonix Next of KIN: Ralph Garcia- child- [phone] D/C plan: tomorrow? Code status: Full Code(s): I10 - ESSENTIAL (PRIMARY) HYPERTENSION Code(s): I10 - ESSENTIAL (PRIMARY) HYPERTENSION
[2024-10-18 06:21] LABS: Hematocrit 30.9 % (40.1-51.0); Mean Cell Volume 95.1 fL (79.0-92.2); Mean Corpuscular Hemoglobin 30.8 pg (25.7-32.2); Mean Corpuscular Hgb Concent. 32.4 g/dL (32.3-36.5); Mean Platelet Volume 9.2 fL (9.4-12.4); Platelet Count 130 x10^3/uL (163-337); Red Blood Count 3.25 x10^6/uL (4.63-6.08); Red Cell Distribution Width 14.1 % (11.6-14.4); White Blood Count 4.2 x10^3/uL (4.23-9.07)
[2024-10-18 06:46] LABS: ALBUMIN 3.6 g/dL (3.5-5.0); ANION GAP 12.7 MEQ/L (5-15); BILIRUBIN,TOTAL 0.7 mg/dL (0.2-1.3); Calcium 8.5 mg/dL (8.4-10.2); Creatinine 1 1.54 mg/dL (0.66-1.25); EST GLOMERULAR FILTRATION RATE 44.5 ML/MIN; Potassium 4.3 mmol/L (3.5-5.1); Total Protein 6.2 g/dL (6.3-8.2)
[2024-10-18 11:41] VITALS: PULSE 57; O2SAT 100
[2024-10-18] MEDS: HUMALOG SQ PRN (12:12)
--- NOTE | 2024-10-18 15:08 | PCM.CONS ---
History of Present Illness - Date of Consult Date of Encounter: 10/18/24 Consulting Perforator: AZAR STEELE MD Requesting Provider: Attending Provider: SUZANNE HOSKINS MD Primary Care Provider: PCP: LAURENT MEDRANO Consent was: Given for this tele-med encounter - Consult Narrative HPI: Patient is a 84M who denies fevers, chills, nausea, vomiting, diarrhea, syncope, presyncope, dysphagia,odynophagia, orthopnea, paroxysmal nocturnal dyspnea, shortness of breath, chest pain, refluxsymptoms, belly pain, dysuria, hematuria, melena, hematochezia, seizures, paralysis, or other neurological changes. All other systems have been reviewed and are negative. cc:: The requesting physician will be sent a copy of the consult. - Past Medical History Past Medical History: Yes Neurological History: Stroke ENT History: No Pertinent History Cardiac History: Arrhythmia, Hypertension Respiratory History: No Pertinent History Endocrine Medical History: Diabetes Type II Musculoskelatal History: Arthritis GI Medical History: No Pertinent History History: No Pertinent History Pyscho-Social History: Anxiety Male Reproductive Disorders: Prostate Problems Comment: B UE NUMBNESS FROM ELBOWS DOWN TO HANDS, RADICULAR PAIN L>R FROM HIP DOWN TO TOE. A-FIB, HERNIA REPAIR, GALL BLADDER REMOVAL, MULTIPLE HEART CATHS WITH CARDIAC STENTS. 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 one stent and double hernia, cardiac cath x 5 Significant Family History: heart disease, diabetes, hypertension - Social History Smoking Status: Never smoker Exposure to second hand smoke: No Alcohol: None Drug Use: none - Social Determinants of Health Will the patient participate in the screening: Declined to provide Do you worry about a steady place to live?: No Do you have any problems with any of the following?: No known problems In the past 12 months,have you had to go without utilities?: No Have you or anyone in your house had to go without enough: No Transportation Issues: No Has anyone in your support network made you feel unsafe?: No Does the patient want assistance with any of the above?: No Medications & Allergies Home Medications: Home Medication List B2/Vits A,C,E/Lut/Zeaxanth/Min [Icaps Tablet] 1 each PO BID 06/27/13 [History Confirmed 10/15/24] Buspirone HCl [Buspar] 15 mg PO BID 06/27/13 [History Confirmed 10/15/24] Metformin HCl 500 mg [Glucophage 500 MG] 1,000 mg PO BID 06/27/13 [History Confirmed 10/15/24] Isosorbide Mononitrate [Isosorbide Mononitrate ER] 60 mg PO DAILY 04/03/18 [History Confirmed 10/15/24] Tamsulosin HCl 0.4 mg [Flomax 0.4 MG] 0.4 mg PO DAILY 04/03/18 [History Confirmed 10/15/24] carvediloL [Coreg] 3.125 mg PO BID 04/03/18 [History Confirmed 10/15/24] Atorvastatin Calcium 20 mg PO HS 03/30/21 [History Confirmed 10/15/24] Dapagliflozin Propanediol [Farxiga] 10 mg PO DAILY 10/24/23 [History Confirmed 10/15/24] Donepezil HCl [Aricept] 5 mg PO DAILY 10/24/23 [History Confirmed 10/15/24] Ferrous Sulfate 325 mg [Feosol 325 mg] 325 mg PO DAILY 10/24/23 [History Confirmed 10/15/24] Levocetirizine Dihydrochloride 5 mg PO DAILY 10/24/23 [History Confirmed 10/15/24] Lisinopril 5 mg [Zestril 5 MG] 5 mg PO DAILY 10/24/23 [History Confirmed 10/15/24] PANTOPRAZOLE 40 mg Tablet [Protonix 40MG Tablet] 40 mg PO QAM 10/24/23 [History Confirmed 10/15/24] Cyclobenzaprine HCl 5 mg PO TID PRN 10 Days #30 tablet 04/05/24 [Rx Confirmed 10/15/24] Melatonin 10 mg PO HS 10/17/24 [History Confirmed 10/17/24] Apixaban [Eliquis 2.5 mg Tablet] 2.5 mg PO BID 30 Days #60 tablet 10/18/24 [Rx] Torsemide 10 mg PO DAILY 30 Days #30 tablet 10/18/24 [Rx] Allergies/Adverse Reactions: Allergies Allergy/AdvReac Type Severity Reaction Status Date / Time Sulfa (Sulfonamide Allergy Severe Verified 10/15/24 17:43 Antibiotics) Iodinated Contrast Media Allergy Mild Verified 10/15/24 17:43 [Iodinated Contrast Media - IV Dye] morphine Allergy Mild Verified 10/15/24 17:43 ofloxacin Allergy Mild Verified 10/15/24 17:43 Exam - Vitals Vital Signs: Vital Signs - 24 hr Temp Pulse Resp BP Pulse Ox 10/18/24 11:40 97 F 57 L 13 131/60 100 10/18/24 07:50 97.2 F 61 25 H 128/68 96 10/18/24 04:00 97.9 F 80 16 140/62 97 10/18/24 00:00 98.1 F 75 18 132/91 98 10/17/24 20:00 98.4 F 82 18 134/66 97 10/17/24 16:00 97.6 F 88 18 173/74 97 SpO2: 100 Results Vital Signs: Vital Signs - 24 hr Temp Pulse Resp BP Pulse Ox 10/18/24 11:40 97 F 57 L 13 131/60 100 10/18/24 07:50 97.2 F 61 25 H 128/68 96 10/18/24 04:00 97.9 F 80 16 140/62 97 10/18/24 00:00 98.1 F 75 18 132/91 98 10/17/24 20:00 98.4 F 82 18 134/66 97 10/17/24 16:00 97.6 F 88 18 173/74 97 Pain Assessment - Last Documented Pain Intensity 0 Pain Scale Used FLACC Intake and Output: Intake & Output 10/16/24 10/17/24 10/18/24 10/19/24 11:59 11:59 11:59 11:59 Intake Total 100 980 720 280 Output Total 300 Balance -200 980 720 280 Weight 89 kg LAB: I have reviewed the Labs in [employer]. Radiology Exams: Radiology Procedures Category Date Time Status ECHO W/2D AND DOPPLER [US] Routine Exams 10/17/24 11:17 Taken TTE 10/17/2024: 1. The right atrium is mildly dilated. Other chamber sizes are normal. 2. Mild concentric left ventricular hypertrophy. 3. Left ventricular systolic function is at the lower limits of normal without focal wall motion abnormalities. Estimated EF 50-55%. 4. Unable to determine grade of diastolic dysfunction due to patient's underlying atrial flutter. 5. Normal right ventricular systolic function. 6. Mild aortic sclerosis without stenosis. 7. Doppler: No significant valvular regurgitation. 8. Unable to estimate PA systolic pressure. 9. Mildly elevated right atrial pressure. 10. No pericardial effusion. CXR (AP) 10/13/2024: 1. Mild cardiomegaly. Mild perihilar pulmonary congestion. 2. No consolidation, pneumothorax or pleural effusion. Head CT without contrast 10/16/2024: 1. No intra-axial or extra-axial hematoma. 2. No skull fracture was detected. 3. Small vessel ischemic vasculopathy-related changes. 4. Age-related involutional brain changes. RUQ US 10/16/2024: Hepatomegaly. Cholecystectomy. Remaining right upper quadrant sonogram is negative. CT of Abdomen and Pelvis without contrast 10/14/2024: Chronic findings including pulmonary fibrosis/scarring, borderline cardiomegaly, urinary bladder diverticulum, arteriosclerotic disease, chronic bony findings, and old granulomatous disease. No acute findings on this noncontrast exam. Multi-Disciplinary Progress Notes: Multi-Disciplinary Progress Notes 10/18/24 10:30 Radiology Note by AZAR STEELE TRANSTHORACIC ECHOCARDIOGRAM 10/18/2024: 1. The right atrium is mildly dilated. Other chamber sizes are normal. 2. Mild concentric left ventricular hypertrophy. 3. Left ventricular systolic function is at the lower limits of normal without focal wall motion abnormalities. Estimated EF 50-55%. 4. Unable to determine grade of diastolic dysfunction due to patient's underlying atrial flutter. 5. Normal right ventricular systolic function. 6. Mild aortic sclerosis without stenosis. 7. Doppler: No significant valvular regurgitation. 8. Unable to estimate PA systolic pressure. 9. Mildly elevated right atrial pressure. 10. No pericardial effusion. Azar Steele MD [facility] Initialized on 10/18/24 10:30 - END OF NOTE Assessment & Plan (1) Coronary artery disease Current Visit: Yes Status: Chronic Assessment & Plan: No angina since his remote PCI. Agree with adding low dose carvedilol to his medical regimen. Code(s): I25.10 - ATHSCL HEART DISEASE OF [place] CORONARY ARTERY W/O ANG PCTRS (2) Elevated troponin Current Visit: Yes Status: Acute Assessment & Plan: Presentation not consistent with acute coronary syndrome. LBBB is chronic. Most likely secondary to CHF +/- UTI. Code(s): R79.89 - OTHER SPECIFIED ABNORMAL FINDINGS OF BLOOD CHEMISTRY (3) CHF (congestive heart failure) Current Visit: Yes Status: Acute Assessment & Plan: Acute on chronic diastolic CHF. It is unclear if he was on a diuretic at home (not listed on home meds though he claims to be one). Has diuresed 3 kg during his hospital stay. Now compensated. Agree with switching to torsemide 10 mg by mouth daily. Code(s): I50.9 - HEART FAILURE, UNSPECIFIED (4) Atypical atrial flutter Current Visit: Yes Status: Chronic Assessment & Plan: Rate controlled at admission before low dose carvedilol added. On systemic anti- coagulation with Eliquis. Based on his age, weight, and kidney function (Cr 1.5 or higher during the entire hospital with a baseline just below 1.5), his dose of Eliquis should be decreased to 2.5 mg by mouth twice daily. Code(s): I48.4 - ATYPICAL ATRIAL FLUTTER - Encounter Encounter: "The entirety of this encounter was performed via Telemedicine using audio and visual " OK for transfer to shelter. Case discussed with Anaid Lynn NP. Azar Steele MD [facility] [phone]
--- NOTE | 2024-10-18 15:23 | PCM.DS ---
Discharge Summary Date of Admission: 10/15/24 17:28 Date of Discharge: 10/18/24 Admitting Physician: SUZANNE HOSKINS MD Consults: Consults on Case 10/15/24 17:37 Consult Cardiology ROUTINE Primary Care Provider: MARCELA,LAURENT Allergies Allergies Sulfa (Sulfonamide Antibiotics) Allergy (Severe, Verified 10/15/24 17:43) Iodinated Contrast Media [Iodinated Contrast Media - IV Dye] Allergy (Mild, Verified 10/15/24 17:43) morphine Allergy (Mild, Verified 10/15/24 17:43) ofloxacin Allergy (Mild, Verified 10/15/24 17:43) Hospital Summary - Hospital Course Hospital Course: 10/15/24 is a 84 year old male with PMHX of [place], arrhythmia, HTN, Stroke, type II DM, OA, anxiety, prostate problems, and chronic obesity. He presented to our ED via EMS for evaluation of generalized weakness. Patient reports that he lives alone. Patient is normally independent with activities of daily living. Patient states that he has been experiencing progressive weakness over the past day. Patient states he was unable to stand up from his stool. Patient reported a pressure sensation around his abdomen into his back near his kidney area. Patient did remember the last time he urinated. However patient reports that he may have urinated spontaneously into his depends but is not sure. No trauma no fever no nausea no vomiting no diarrhea no rash. Symptoms are constant. Symptoms are moderate in intensity. No specific worsening or improving factors. Patient voices no other complaints or concerns at this time. CXR shows: Mild cardiomegaly. Mild perihilar pulmonary congestion. Abd CT /Pelvis showed: Chronic findings including pulmonary fibrosis/scarring, borderline cardiomegaly, urinary bladder diverticulum, arteriosclerotic disease, chronic bony findings, and old granulomatous disease. No acute findings on this noncontrast exam. He was given IV lasix in he ER and abd pain sxs resolved. Levaquin started for UTI. ASA and nitro paste gave for elevated trops. Pt denies CP. He reports he did have some SOB and BLLE edema but this has now resolved since admission and lasix gave. His skin is peeling on BLLE as he states his edema was bad enough to cause this to happen. He denies any further concerns at this time and reports doing better than when he came in. 10/16/24 Pt resting in bed. He states he hurts all over as he had a fall last night and hit his head. A CT head was completed and no new abnormal findings. He continues to have SHOSHANA that has worsened today. Likely 2:2 Lasix. Cardiology consult pending. Hydralizine PRN added for HTN as some BP meds had to be held d/t SHOSHANA. Continue IV antibiotic for UTI, UC pending. Abd US ordered for elevated bili. He denies CP, SOB, abd. pain, N/V/D. 10/17/24 Pt resting in the chair. No overnight events. He feels he is stronger today and walked to the bathroom with rollater. UC + for Klebsiella- continue Levaquin. awaiting cards consult for elevated Trops. Abd US negative and Bili normal today. SHOSHANA improving. Echo pending. Pt likely to d/c tomorrow to [facility]. He denies any further concerns at this time. 10/18/24 Pt resting in the chair. He is ready to d/c today. Plan is to go to [facility] for rehab and he has been accepted. Awaiting cardiology consult recs. Echo EF 50-55% with mild LVH. Will continue diuretic OP. He will need to f/u with his contact center manager - Dr. Aldrich OP. SHOSHANA improving. Will continue antibiotics OP for UTI. Pt denies any further concerns at this time. - Vitals & Intake/Output Vital Signs: Vital Signs Temperature 97 F 10/18/24 11:40 Pulse Rate 57 L 10/18/24 11:40 Respiratory Rate 13 10/18/24 11:40 Blood Pressure 131/60 10/18/24 11:40 O2 Sat by Pulse Oximetry 100 10/18/24 15:08 Intake & Output: Intake & Output 10/16/24 10/17/24 10/18/24 10/19/24 11:59 11:59 11:59 11:59 Intake Total 100 980 720 280 Output Total 300 Balance -200 980 720 280 Weight 89 kg - Lab Result Diagrams: 10/18/24 06:15 10/18/24 06:15 Lab Results-Last 24 Hrs: Lab Results-Last 24 Hours 10/18/24 10/18/24 10/18/24 Range/Units 06:15 06:15 09:26 WBC 4.2 L (4.23-9.07) x10^3/uL RBC 3.25 L (4.63-6.08) x10^6/uL Hgb 10.0 L (13.7-17.5) g/dL Hct 30.9 L (40.1-51.0) % MCV 95.1 H (79.0-92.2) fL MCH 30.8 (25.7-32.2) pg MCHC 32.4 (32.3-36.5) g/dL RDW 14.1 (11.6-14.4) % Plt Count 130 L (163-337) x10^3/uL MPV 9.2 L (9.4-12.4) fL Sodium 134 L (135-145) mmol/L Potassium 4.3 (3.5-5.1) mmol/L Chloride 103 (98-107) mmol/L Carbon Dioxide 22 (22-30) mmol/L Anion Gap 12.7 (5-15) MEQ/L BUN 44 H (9-20) mg/dL Creatinine 1.54 H (0.66-1.25) mg/dL Estimated GFR 44.5 ML/MIN Glucose 266 H (74-106) mg/dL POC Glucometer 260 H (74 to 106) mg/dL Calcium 8.5 (8.4-10.2) mg/dL Total Bilirubin 0.70 (0.2-1.3) mg/dL AST 24 (17-59) U/L ALT 13 (0-50) U/L Alkaline Phosphatase 82 (38-126) U/L Serum Total Protein 6.2 L (6.3-8.2) g/dL Albumin 3.6 (3.5-5.0) g/dL 10/18/24 Range/Units 11:10 WBC (4.23-9.07) x10^3/uL RBC (4.63-6.08) x10^6/uL Hgb (13.7-17.5) g/dL Hct (40.1-51.0) % MCV (79.0-92.2) fL MCH (25.7-32.2) pg MCHC (32.3-36.5) g/dL RDW (11.6-14.4) % Plt Count (163-337) x10^3/uL MPV (9.4-12.4) fL Sodium (135-145) mmol/L Potassium (3.5-5.1) mmol/L Chloride (98-107) mmol/L Carbon Dioxide (22-30) mmol/L Anion Gap (5-15) MEQ/L BUN (9-20) mg/dL Creatinine (0.66-1.25) mg/dL Estimated GFR ML/MIN Glucose (74-106) mg/dL POC Glucometer 261 H (74 to 106) mg/dL Calcium (8.4-10.2) mg/dL Total Bilirubin (0.2-1.3) mg/dL AST (17-59) U/L ALT (0-50) U/L Alkaline Phosphatase (38-126) U/L Serum Total Protein (6.3-8.2) g/dL Albumin (3.5-5.0) g/dL Micro Results-Entire Visit: Microbiology 10/14/24 22:01 Urine Culture - Final Catherized Klebsiella Pneumoniae Accuchecks Date 10/18/24 Time 11:40 - Radiology Exams Ordered Rad Exams-Entire Visit: Radiology Procedures Category Date Time Status ECHO W/2D AND DOPPLER [US] Routine Exams 10/17/24 11:17 Taken - Procedures and Test Procedures and Tests throughout Hospitalization: Therapy Orders & Screens 10/15/24 17:39 PT Eval & Treat ( Order) ONCE Reason for Eval:: weakness Diagnosis: weakness 10/15/24 18:01 OT Screen per Nursing Assess ONCE Comment: Protocol Order Physician Instructions: Greater than 3 points order OT Admission Screening Reason For Exam: Triggered on Admission Diagnosis: weakness Open Wound/Cellutlitis/Pressure Ulcers: Yes Acute Fx/ORIF/Change in wt bearing status: No Severe MUSCULOSKELETAL pain: No ADL Dysfunction: No Acute CVA w/Hemiparesis/Hemiplegia: No Decreased Functional Mobility/Strength: Yes Sprain/Strain: No Acute Post-op Mobility Dysfunction: No Total Points: 6 PT Screen per Nursing Assess ONCE Comment: Protocol Order Physician Instructions: Greater than 3 points order PT Admission Screenin Reason For Exam: Triggered on Admission Diagnosis: weakness Open Wound/Cellutlitis/Pressure Ulcers: Yes Acute Fx/ORIF/Change in wt bearing status: No Severe MUSCULOSKELETAL pain: No ADL Dysfunction: No Acute CVA w/Hemiparesis/Hemiplegia: No Decreased Functional Mobility/Strength: Yes Sprain/Strain: No Acute Post-op Mobility Dysfunction: No Total Points: 6 Discharge Exam General Appearance: no apparent distress, alert, obese Neurologic Exam: alert, oriented x 3, cooperative, normal mood/affect, nml cerebellar function, sensation nml, motor weakness, No motor deficits Eye Exam: PERRL, EOMI, eyes nml inspection Ears, Nose, Throat Exam: normal ENT inspection, pharynx normal, moist mucous membranes Neck Exam: normal inspection, non-tender, supple, full range of motion Respiratory Exam: normal breath sounds, lungs clear, No respiratory distress Cardiovascular Exam: regular rate/rhythm, normal heart sounds Gastrointestinal/Abdomen Exam: soft, No tenderness, No mass Male Genitalia Exam: deferred Rectal Exam: deferred Back Exam: normal inspection, normal range of motion, No CVA tenderness, No vertebral tenderness Extremity Exam: normal inspection, normal range of motion Skin Exam: normal color, warm, dry Wound Assessment: Skin/Wound Assessment Wound/Incision Assessment Start: 10/15/24 18 :01 Text: Status: Active Freq: Q6H Protocol: Document 10/18/24 14:00 RB (Rec: 10/18/24 14:10 RB [id number]) Wound/Incision Assessment Other Wound Assessment Shift Assessment Wound Type Pressure Ulcer Wound Stage Stage I General Appearance Open to air,Clean/Dry Comment BANDAIDE IN PLACE- REMAINS TRUE CDI Wound Photo Photo Taken No Final Diagnosis/Problem List - Final Discharge Diagnosis/Problem (1) CHF (congestive heart failure) Current Visit: Yes Status: Acute Code(s): I50.9 - HEART FAILURE, UNSPECIFIED (2) Elevated troponin Current Visit: Yes Status: Acute Code(s): R79.89 - OTHER SPECIFIED ABNORMAL FINDINGS OF BLOOD CHEMISTRY (3) UTI (urinary tract infection) Current Visit: Yes Status: Acute Code(s): N39.0 - URINARY TRACT INFECTION, SITE NOT SPECIFIED (4) Generalized weakness Current Visit: Yes Status: Acute Code(s): R53.1 - WEAKNESS (5) Abdominal pain Current Visit: Yes Status: Acute Code(s): R10.9 - UNSPECIFIED ABDOMINAL PAIN (6) Acute on chronic renal failure Current Visit: Yes Status: Acute Code(s): N17.9 - ACUTE KIDNEY FAILURE, UNSPECIFIED; N18.9 - CHRONIC KIDNEY DISEASE, UNSPECIFIED (7) Type II diabetes mellitus Current Visit: Yes Status: Chronic (8) Obesity (BMI 30.0-34.9) Current Visit: Yes Status: Chronic Code(s): E66.811 - OBESITY, CLASS 1 (9) Elevated bilirubin Current Visit: Yes Status: Acute Code(s): R17 - UNSPECIFIED JAUNDICE (10) HTN (hypertension) Current Visit: Yes Status: Acute Assessment & Plan: (1) CHF (congestive heart failure) Current Visit: Yes Status: Acute Assessment & Plan: - CXR: IMPRESSION: 1. Mild cardiomegaly. Mild perihilar pulmonary congestion. 2. No consolidation, pneumothorax or pleural effusion. - Lasix 20 mg daily IV - Tele - cards consult - Follows Dr. Aldrich @ [facility] in [place], [place] - Continue home meds - BNP [id number] 10/16 - CBC, CMP reviewed - Echo tomorrow - cards consult pending - RA 92% 10/17 - CBC, CMP reviewed - Echo - cards consult pending 10/18 - CBC, CMP reviewed - Echo: 1. The right atrium is mildly dilated. Other chamber sizes are normal. 2. Mild concentric left ventricular hypertrophy. 3. Left ventricular systolic function is at the lower limits of normal without focal wall motion abnormalities. Estimated EF 50-55%. 4. Unable to determine grade of diastolic dysfunction due to patient's underlying atrial flutter. 5. Normal right ventricular systolic function. 6. Mild aortic sclerosis without stenosis. 7. Doppler: No significant valvular regurgitation. 8. Unable to estimate PA systolic pressure. 9. Mildly elevated right atrial pressure. 10. No pericardial effusion. - cards consult: reviewed note and agree with plan of care- Eliquis decreased to 2.5 BID - will start toresimide OP Code(s): I50.9 - HEART FAILURE, UNSPECIFIED (2) Elevated troponin Current Visit: Yes Status: Acute Assessment & Plan: - cardiology consulted. - tele - Nitro paste removed on IP admission - labs reviewed- trops trended down - Likely 2:2 to CHF - EKG - Follows Dr. Aldrich cardiology [facility] Code(s): R79.89 - OTHER SPECIFIED ABNORMAL FINDINGS OF BLOOD CHEMISTRY (3) UTI (urinary tract infection) Current Visit: Yes Status: Acute Assessment & Plan: - Levaquin started in ER- cont. pharmacy to dose for renal dosing - Old urine cultures reviewed - 2:2 CHF and UTI 10/17 - UC Klebsiella- cont. Levaquin Code(s): N39.0 - URINARY TRACT INFECTION, SITE NOT SPECIFIED (4) Generalized weakness Current Visit: Yes Status: Acute Assessment & Plan: - PT eval and treat 10/16 - fall last night- CT head for further eval negative for acute concern 10/18 - D/C to rehab today Code(s): R53.1 - WEAKNESS (5) Abdominal pain Current Visit: Yes Status: Acute Assessment & Plan: -Abd/ Pelvis CT: Impression: Chronic findings including pulmonary fibrosis/scarring, borderline cardiomegaly, urinary bladder diverticulum, arteriosclerotic disease, chronic bony findings, and old granulomatous disease. No acute findings on this noncontrast exam. - resolved IP - CBC, CMP reviewed Code(s): R10.9 - UNSPECIFIED ABDOMINAL PAIN (6) Acute on chronic renal failure Current Visit: Yes Status: Acute Assessment & Plan: - creat 1.69- baseline 1.36 - trend labs - stopped metformin and lisinopril for now 10/16 - Creat 2.03- likely 2:2 lasix - trend 10/17 - Creat 1.76- improved 10/18 - Creat 1.54- improved Code(s): N17.9 - ACUTE KIDNEY FAILURE, UNSPECIFIED; N18.9 - CHRONIC KIDNEY DISEASE, UNSPECIFIED (7) Type II diabetes mellitus Current Visit: Yes Status: Chronic Qualifiers: Diabetes mellitus terminal carman insulin use: without snf use Diabetes mellitus complication status: with kidney complications Diabetes mellitus complication detail: with chronic kidney disease Assessment & Plan: - accuchecks ac/hs - low dose s/s - hold metformin d/t shoshana -A1C 7.23- controlled (8) Obesity (BMI 30.0-34.9) Current Visit: Yes Status: Chronic Assessment & Plan: - advised ADA diet and exercise control Code(s): E66.811 - OBESITY, CLASS 1 (9) Elevated bilirubin Current Visit: Yes Status: Acute Assessment & Plan: - Bili trending down 1.60 - Pt reports severe Abd. pain prior to admission -US abd: Impression: Hepatomegaly. Cholecystectomy. Remaining right upper quadrant sonogram is negative 10/17 - resolved Code(s): R17 - UNSPECIFIED JAUNDICE (10) HTN (hypertension) Current Visit: Yes Status: Acute Assessment & Plan: - Cont home meds - Hold lisinopril d/t SHOSHANA - Hydralizine PRN Code(s): I10 - ESSENTIAL (PRIMARY) HYPERTENSION - Discharge Discharge Date: 10/18/24 ([facility]) Disposition: XFER OTHER Condition: Stable Prescriptions: New Torsemide 10 mg PO DAILY 30 Days #30 tablet Apixaban [Eliquis 2.5 mg Tablet] 2.5 mg PO BID 30 Days #60 tablet Continue B2/Vits A,C,E/Lut/Zeaxanth/Min [Icaps Tablet] 1 each PO BID Metformin HCl 500 mg [Glucophage 500 MG] 1,000 mg PO BID Buspirone HCl [Buspar] 15 mg PO BID Tamsulosin HCl 0.4 mg [Flomax 0.4 MG] 0.4 mg PO DAILY carvediloL [Coreg] 3.125 mg PO BID Isosorbide Mononitrate [Isosorbide Mononitrate ER] 60 mg PO DAILY Atorvastatin Calcium 20 mg PO HS PANTOPRAZOLE 40 mg Tablet [Protonix 40MG Tablet] 40 mg PO QAM Lisinopril 5 mg [Zestril 5 MG] 5 mg PO DAILY Levocetirizine Dihydrochloride 5 mg PO DAILY Ferrous Sulfate 325 mg [Feosol 325 mg] 325 mg PO DAILY Donepezil HCl [Aricept] 5 mg PO DAILY Dapagliflozin Propanediol [Farxiga] 10 mg PO DAILY Cyclobenzaprine HCl 5 mg PO TID PRN 10 Days #30 tablet PRN Reason: Muscle Spasms Melatonin 10 mg PO HS Discontinued Apixaban [Eliquis] 5 mg PO DAILY Additional Instructions: Please call and make appointment with Dr. Aldrich - cardiology to discuss new medication. Follow up with: LAURENT MEDRANO MD [Primary Care Provider] -
[2024-10-18 16:32] VITALS: BP 140/63; RESP 16; TEMP 97.5
== END 2024-10-18 17:15 ==
LOC: ED 19:25 → MED SURG 10-15 17:28
PROVIDERS: ADMIT Internal Medicine; ATTEND Internal Medicine
DX: E11.22 Type 2 diabetes mellitus with diabetic chronic kidney disease (principal); I13.0 Hypertensive heart and chronic kidney disease with heart failure and stage 1 through stage 4 chronic kidney disease, or unspecified chronic kidney disease; N18.9 Chronic kidney disease, unspecified; I50.9 Heart failure, unspecified; R79.89 Other specified abnormal findings of blood chemistry; N39.0 Urinary tract infection, site not specified; B96.1 Klebsiella pneumoniae [K. pneumoniae] as the cause of diseases classified elsewhere; I25.10 Atherosclerotic heart disease of native coronary artery without angina pectoris; I48.4 Atypical atrial flutter; Z86.73 Personal history of transient ischemic attack (TIA), and cerebral infarction without residual deficits; R53.1 Weakness; R60.0 Localized edema; R10.9 Unspecified abdominal pain; E66.811 Obesity, class 1; R17 Unspecified jaundice; Z79.899 Other long term (current) drug therapy; N17.9 Acute kidney failure, unspecified
CPT/HCPCS: 36415; 70450; 71045; 74176; 76705; 80053; 81001; 82947; 83036; 83605; 83690; 83735; 83880; 84134; 84484; 85025; 85027; 87077; 87086; 87186; 93005; 93041; 93268; 93306; 94760; 96365; 96374; 96375; 97110; 97161; 97530; 99285; G0378; Q3014; J1817; J1940; J1956; A9270-GY